=== PATIENT | male | born 1975 | race Caucasian/White ===

== ENCOUNTER 2018-03-14 13:41 | Emergency (ER) | payer MEDICARE, OTHER ==
--- NOTE | 2018-03-14 14:24 | ED ---
Psych HPI - General Chief Complaint: Psychiatric Symptoms Stated Complaint: Mental Health Time Seen by Provider: 03/14/18 14:11 Source: patient Mode of arrival: ambulatory - History of Present Illness Initial Comments: Patient is a 42-year-old male presenting for suicidal ideation. He states that he was at [facility] on and was set up with a counselor as well as the medicines. However, he then had an outburst on where he smashed a hamburger at [employer] and fiance's concerned because he has been having worsening suicidal ideations with many thoughts of hurting himself but no plan. Family states that they do want inpatient treatment. - Related Data Home Medications Medication Instructions Recorded Confirmed Venlafaxine HCl [Effexor] 1 tab PO DAILY 11/29/14 02/25/15 ALPRAZolam [Xanax] 1 mg PO BID 02/25/15 02/25/15 Allergies Allergy/AdvReac Type Severity Reaction Status Date / Time iodine Allergy Unknown Rash/Hives Verified 03/14/18 13:50 Review of Systems ROS Statement: Those systems with pertinent positive or pertinent negative responses have been documented in the HPI. Constitutional: Negative for chills, fatigue and fever. HENT: Negative for congestion. Respiratory: Negative for chest tightness, shortness of breath and wheezing. Negative for cough Cardiovascular: Negative for chest pain and palpitations. Gastrointestinal: Negative for abdominal pain. Negative for abdominal distention , diarrhea, nausea and vomiting. Genitourinary: Negative for dysuria. Musculoskeletal: Negative for back pain, neck pain and neck stiffness. Skin: Negative for color change. Neurological: Negative for dizziness, speech difficulty, weakness and light- headedness. Psychiatric/Behavioral: Negative for agitation and confusion. Positive for anxiety and suicidal ideation ROS Other: All systems not noted in ROS Statement are negative. Past Medical History Past Medical History: No Reported History History of Any Multi-Drug Resistant Organisms: None Reported Past Surgical History: Orthopedic Surgery Additional Past Surgical History / Comment(s): Right knee osteotomy Past Anesthesia/Blood Transfusion Reactions: No Reported Reaction Past Psychological History: Bipolar Smoking Status: Current every day smoker Past Alcohol Use History: None Reported Past Drug Use History: Marijuana - Past Family History Father Family Medical History: Unable to Obtain Mother Family Medical History: Unable to Obtain Additional Family Medical History / Comment(s): Patient states he does not know anything about his mother or father's health. He does have 1 daughter. He also has 1 brother and 2 sisters that are healthy. General Exam - General Exam Comments Initial Comments: Constitutional: Pt is oriented to person, place, and time. Pt appears well- developed and well-nourished. No distress. HENT: Head: Normocephalic and atraumatic. Eyes: EOM are normal. Neck: Normal range of motion. Neck supple. Cardiovascular: Normal rate, regular rhythm, S1 normal, S2 normal and normal heart sounds. Exam reveals no gallop and no friction rub. No murmur heard. Pulmonary/Chest: Effort normal and breath sounds normal. No tachypnea and no bradypnea. No respiratory distress. No wheezes or rales noted. Abdominal: Soft. Bowel sounds are normal. Pt exhibits no shifting dullness, no distension, no pulsatile liver, no fluid wave, no abdominal bruit and no ascites. There is no tenderness. There is no rigidity, no rebound, no guarding, no tenderness at McBurney's point and negative Scott's sign. Musculoskeletal: Normal range of motion. Neurological: Pt is alert and oriented to person, place, and time. No cranial nerve deficit. Skin: Skin is warm and dry. No rash noted. Pt is not diaphoretic. No erythema. No pallor. Psychiatric: Patient is anxious with emotional lability. Positive for suicidal ideation.. Limitations: no limitations Course Vital Signs 03/14/18 03/14/18 13:47 17:01 Temperature 98.9 F 97.5 F L Pulse Rate 89 52 L Respiratory 16 20 Rate Blood Pressure 118/66 119/59 O2 Sat by Pulse 96 99 Oximetry - Reevaluation(s) Reevaluation #1: 03/14/18 16:54 Patient evaluated by social work lecturer Medical Decision Making - Medical Decision Making Patient was evaluated by his psychiatric nurse and at that time, the patient adamantly denied any suicidal ideation. His fianc/girlfriend left the room and he stated that he was only seen those things because she was coercing him to do so. Multiple discussions were had between physician and social work lecturer/ psychiatry, and it was felt that the patient was not truly suicidal and could be safely discharged under the care of a close family member. The patient's brother came to the emergency department and this was discussed with him. The brother stated that he does believe that the patient's fianc is causing some of these symptoms to be worsened. He also agreed that he would take the patient under his care and watch him for the next few days. Because of this, it was felt that the patient could be safely discharged. - Lab Data Lab Results 03/14/18 Range/Units 14:35 Urine Opiates Screen Not Detected (NotDetected) Ur Oxycodone Screen Not Detected (NotDetected) Urine Methadone Screen Not Detected (NotDetected) Ur Propoxyphene Screen Not Detected (NotDetected) Ur Barbiturates Screen Not Detected (NotDetected) U Tricyclic Antidepress Not Detected (NotDetected) Ur Phencyclidine Scrn Not Detected (NotDetected) Ur Amphetamines Screen Not Detected (NotDetected) U Methamphetamines Scrn Not Detected (NotDetected) U Benzodiazepines Scrn Not Detected (NotDetected) Urine Cocaine Screen Not Detected (NotDetected) U Marijuana (THC) Screen Detected H (NotDetected) Disposition Clinical Impression: Dysphoric mood Disposition: HOME SELF-CARE Condition: Good Instructions: Mood Disorders (ED) Is patient prescribed a controlled substance at d/c from ED?: No Referrals: None,Stated [Primary Care Provider] - 1-2 days Time of Disposition: 16:53
[2018-03-14 14:54] LABS: Urn Cannabinoid Scrn Detected (NotDetected)
[2018-03-14 14:55] LABS: Amphetamine Screen,Urine Not Detected (NotDetected); Barbiturate Screen,Urine Not Detected (NotDetected); Benzodiazepines Screen,Urine Not Detected (NotDetected); Cocaine Screen,Urine Not Detected (NotDetected); Methadone Screen, Urine Not Detected (NotDetected); Opiate Screen,Urine Not Detected (NotDetected); Oxycodone Screen, Urine Not Detected (NotDetected); Phencyclidine Screen,Urine Not Detected (NotDetected); Tricyclic Antidepressant,Urine Not Detected (NotDetected)
[2018-03-14 17:03] VITALS: BP 119/59; PULSE 52; RESP 20; TEMP 97.5
== END 2018-03-14 17:13 | disposition home or self-care (01) ==
LOC: EEVIPCON 13:41 → EC 13:41
DX: F34.1 Dysthymic disorder (principal); F31.9 Bipolar disorder, unspecified; F17.200 Nicotine dependence, unspecified, uncomplicated; Z98.890 Other specified postprocedural states; Z79.899 Other long term (current) drug therapy; Z91.048 Other nonmedicinal substance allergy status
CPT/HCPCS: 80306; 82075; 99285

== ENCOUNTER 2018-03-16 04:56 | Inpatient (IN) | payer MEDICARE, MEDICAID ==
--- NOTE | 2018-03-16 05:37 | ED ---
General Adult HPI - General Source: patient, family, RN notes reviewed, old records reviewed Mode of arrival: ambulatory Limitations: no limitations <Chema Mckeon - Last Filed: 03/16/18 05:36> <Tay Rinaldi - Last Filed: 03/16/18 19:26> - General Chief complaint: Psychiatric Symptoms Stated complaint: Mental Health Time Seen by Provider: 03/16/18 05:05 - History of Present Illness Initial comments: This is a 42-year-old male the ER for evaluation. Patient comes in for evaluation of mental health. Patient having difficulty following up with [facility]. Patient was essay with mom and her evaluation of suicidal thoughts and ideation (Chema Mckeon) - Related Data Home Medications Medication Instructions Recorded Confirmed No Known Home Medications 03/16/18 03/16/18 Allergies Allergy/AdvReac Type Severity Reaction Status Date / Time iodine Allergy Unknown Rash/Hives Verified 03/16/18 09:38 nicotine patch Allergy Rash/Hives Uncoded 03/16/18 10:01 Review of Systems ROS Other: All systems not noted in ROS Statement are negative. <Chema Mckeon - Last Filed: 03/16/18 05:36> ROS Other: All systems not noted in ROS Statement are negative. <Tay Rinaldi - Last Filed: 03/16/18 19:26> ROS Statement: Those systems with pertinent positive or pertinent negative responses have been documented in the HPI. Past Medical History Past Medical History: No Reported History History of Any Multi-Drug Resistant Organisms: None Reported Past Surgical History: Orthopedic Surgery Additional Past Surgical History / Comment(s): Right knee osteotomy Past Anesthesia/Blood Transfusion Reactions: No Reported Reaction Past Psychological History: Bipolar Smoking Status: Current every day smoker Past Alcohol Use History: None Reported Past Drug Use History: Marijuana - Past Family History Father Family Medical History: Unable to Obtain Mother Family Medical History: Unable to Obtain Additional Family Medical History / Comment(s): Patient states he does not know anything about his mother or father's health. He does have 1 daughter. He also has 1 brother and 2 sisters that are healthy. <Chema Mckeon - Last Filed: 03/16/18 05:36> General Exam Limitations: no limitations General appearance: alert, in no apparent distress Head exam: Present: atraumatic, normocephalic, normal inspection Eye exam: Present: normal appearance, PERRL, EOMI. Absent: scleral icterus, conjunctival injection, periorbital swelling ENT exam: Present: normal exam, mucous membranes moist Neck exam: Present: normal inspection. Absent: tenderness, meningismus, lymphadenopathy Respiratory exam: Present: normal lung sounds bilaterally. Absent: respiratory distress, wheezes, rales, rhonchi, stridor Cardiovascular Exam: Present: regular rate, normal rhythm, normal heart sounds. Absent: systolic murmur, diastolic murmur, rubs, gallop, clicks GI/Abdominal exam: Present: soft, normal bowel sounds. Absent: distended, tenderness, guarding, rebound, rigid Extremities exam: Present: normal inspection, full ROM, normal capillary refill. Absent: tenderness, pedal edema, joint swelling, calf tenderness Back exam: Present: normal inspection Neurological exam: Present: alert, oriented X3, CN II-XII intact Psychiatric exam: Present: normal affect, normal mood Skin exam: Present: warm, dry, intact, normal color. Absent: rash <Chema Mckeon - Last Filed: 03/16/18 05:36> Course <Chema Mckeon - Last Filed: 03/16/18 05:36> <Tay Rinaldi - Last Filed: 03/16/18 19:26> Vital Signs 03/16/18 03/16/18 05:13 12:28 Temperature 98.2 F Pulse Rate 74 67 Respiratory 18 18 Rate Blood Pressure 129/87 110/54 O2 Sat by Pulse 100 98 Oximetry - Reevaluation(s) Reevaluation #1: 03/16/18 05:36 Patient is medically clear for psychiatric evaluation (Chema Mckeon) Reevaluation #2: 03/16/18 05:37 Prior ER visit is reviewed (Chema Mckeon) Medical Decision Making <Chema Mckeon - Last Filed: 03/16/18 05:36> <Tay Rinaldi - Last Filed: 03/16/18 19:26> - Medical Decision Making 41-year-old male presenting for depression, suicidal ideation. He was evaluated by EPS and will be admitted for further treatment and evaluation. ( Tay Rinaldi) - Lab Data Lab Results 03/16/18 Range/Units 07:29 Urine Opiates Screen Not Detected (NotDetected) Ur Oxycodone Screen Not Detected (NotDetected) Urine Methadone Screen Not Detected (NotDetected) Ur Propoxyphene Screen Not Detected (NotDetected) Ur Barbiturates Screen Not Detected (NotDetected) U Tricyclic Antidepress Not Detected (NotDetected) Ur Phencyclidine Scrn Not Detected (NotDetected) Ur Amphetamines Screen Not Detected (NotDetected) U Methamphetamines Scrn Not Detected (NotDetected) U Benzodiazepines Scrn Not Detected (NotDetected) Urine Cocaine Screen Not Detected (NotDetected) U Marijuana (THC) Screen Detected H (NotDetected) Disposition <Chema Mckeon - Last Filed: 03/16/18 05:36> Is patient prescribed a controlled substance at d/c from ED?: No Decision to Admit Reason: Admit from EC Decision Date: 03/16/18 Decision Time: 19:26 <Tay Rinaldi - Last Filed: 03/16/18 19:26> Clinical Impression: Depression, Suicidal ideation Disposition: ADMITTED IP TO [facility] Condition: Stable
[2018-03-16 07:45] LABS: Amphetamine Screen,Urine Not Detected (NotDetected); Barbiturate Screen,Urine Not Detected (NotDetected); Benzodiazepines Screen,Urine Not Detected (NotDetected); Cocaine Screen,Urine Not Detected (NotDetected); Methadone Screen, Urine Not Detected (NotDetected); Opiate Screen,Urine Not Detected (NotDetected); Oxycodone Screen, Urine Not Detected (NotDetected); Phencyclidine Screen,Urine Not Detected (NotDetected); Tricyclic Antidepressant,Urine Not Detected (NotDetected); Urn Cannabinoid Scrn Detected (NotDetected)
[2018-03-16] MEDS ORDERED: NICOTINE 21MG/24HR PATCH TRANSDERM STA (09:38)
[2018-03-16] MEDS: NICOTINE POLACRILEX 2 MG GUM BUCCAL PRN ×3 (10:06→22:50)
[2018-03-16] MEDS ORDERED: ZIPRASIDONE 20 MG VIAL IM PRN (19:28)
[2018-03-16] MEDS ORDERED: ACETAMINOPHEN TAB 325 MG TAB PO PRN (19:28)
[2018-03-16] MEDS ORDERED: LORazepam 1 MG TAB PO PRN (19:28)
[2018-03-17] MEDS: NICOTINE POLACRILEX 2 MG GUM BUCCAL PRN ×5 (07:40→22:45)
[2018-03-17] MEDS: ESCITALOPRAM 10 MG TAB PO SCH (09:43)
--- NOTE | 2018-03-17 09:44 | P.HP ---
Psychiatric H&P - . History & Physical: Allergies Allergy/AdvReac Type Severity Reaction Status Date / Time iodine Allergy Unknown Rash/Hives Verified 03/16/18 09:38 nicotine patch Allergy Rash/Hives Uncoded 03/16/18 10:01 Vital Signs Temp 97.8 F 03/17/18 07:24 Pulse 74 03/17/18 07:24 Resp 18 03/17/18 07:24 BP 116/71 03/17/18 07:24 Pulse Ox 98 03/17/18 07:24 Intake & Output 03/16/18 03/17/18 03/17/18 18:59 06:59 18:59 Weight 58.5 kg Laboratory Last Values Urine Opiates Screen Not Detected (NotDetected) 03/16/18 07:29 Ur Oxycodone Screen Not Detected (NotDetected) 03/16/18 07:29 Urine Methadone Screen Not Detected (NotDetected) 03/16/18 07:29 Ur Propoxyphene Screen Not Detected (NotDetected) 03/16/18 07:29 Ur Barbiturates Screen Not Detected (NotDetected) 03/16/18 07:29 U Tricyclic Antidepress Not Detected (NotDetected) 03/16/18 07:29 Ur Phencyclidine Scrn Not Detected (NotDetected) 03/16/18 07:29 Ur Amphetamines Screen Not Detected (NotDetected) 03/16/18 07:29 U Methamphetamines Scrn Not Detected (NotDetected) 03/16/18 07:29 U Benzodiazepines Scrn Not Detected (NotDetected) 03/16/18 07:29 Urine Cocaine Screen Not Detected (NotDetected) 03/16/18 07:29 U Marijuana (THC) Screen Detected (NotDetected) H 03/16/18 07:29 03/17/18 09:33 IDENTIFYING DATA: This patient is a 42-year-old single male who was admitted to the mental health unit with worsening symptoms of depression and suicidal ideation. HPI: The patient presents reporting he is not himself. He states he continues to have sad thoughts and thoughts of ending his life. He reports not feeling right for several weeks. He has been spontaneously tearful over the past several weeks. He has had hopelessness thinking. Appetite is been decreased sleep has been fragmented. His ADLs have suffered and upon presentation he was noted to be malodorous with poor hygiene. He reports having other thoughts that he is going to lose his fiance and that she may be cheating on him. He is worried he will lose her. He describes a significant amount of anxiety on a regular basis. He reports having difficulty shutting his mind off especially in the evening as he is excessively worried. This does seem to impair his sleep concentration and energy level. He denies any history of hypomanic or manic episodes. He is endorsing no auditory or visual hallucinations or any specific delusions. He does have a history of using methamphetamine but has been sober from that for the last 3 years. He does use marijuana on a regular basis. He smokes 4 packs of cigarettes a day because of "my nerves". PAST PSYCHIATRIC HISTORY: The patient has had 3-4 total inpatient psychiatric admissions the last one on this mental health unit was in 2014, no history of suicide attempts, he has been treated in the past with Paxil Lexapro and Wellbutrin XL. He feels all of the medications worked to some extent but he stopped them as his friends and family members convinced him he doesn't need psychiatric medication. He reports purchase a painting in an intake appointment with [facility] and is scheduled for a therapy appointment on March 24. PMH: History of cerebral palsy with scoliosis ALLERGIES: Iodine, nicotine patch MEDICATIONS: None CHEMICAL DEPENDENCY HISTORY: Daily marijuana use, history of methamphetamine use which stopped in September 2014 FAMILY PSYCHIATRIC HISTORY: None reported, no suicides in the family FAMILY CHEMICAL DEPENDENCY HISTORY: Unknown SOCIAL HISTORY: The patient's is 42 years old he single he resides with his fiance and HER-2 children. His fiance has 2 sons age 9 and 8. The patient is unemployed he receives a disability income. He has a high school education he did participate in a special education curriculum throughout his schooling. No history of service. He has a total of 7 siblings but has no contact with them. He is originally from [place] and was raised by both parents. Legal history he does have a history of a felony conviction several years ago for breaking and entering. No abuse history reported. He reports having no firearms at home. 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 Eye contact is appropriate he is pleasant and cooperative throughout the session. Numerous times he was tearful and his affect appeared dysphoric. He reports a depressed mood with intermittent hopelessness thinking. He states he doesn't want suicidal thoughts but he can't get them out of his head. No homicidal ideation intent or plan. He is reporting no auditory or visual hallucinations or any specific delusions. He demonstrates no observed evidence of psychosis. Thought process for the most part is linear he demonstrates no tangential thinking loose associations or flight of ideas. He does not appear hypomanic or manic. He does appear somewhat stimulus bound and he does frequently moves while seated in the chair. He demonstrates no verbal or physical aggressiveness he demonstrates no abnormal involuntary movements. He is oriented to person place and date. He is able name the days of the week backwards. STRENGTHS/WEAKNESSES: Strengths: Housing, income, willingness to receive treatment voluntarily weaknesses previous noncompliance with continued medication treatment INTELLECTUAL FUNCTIONING: Below average IMPRESSIONS: [] 1. Major depressive disorder recurrent severe without psychosis, methamphetamine use disorder in remission, cannabis use disorder, rule out attention deficit disorder 2. Cerebral palsy, scoliosis PLAN: The patient has been admitted to the mental health unit he is here voluntarily. We reviewed his presenting symptoms and treatment options. We will reinitiate Lexapro 10 mg daily to address depressive and anxiety symptoms. He feels that he did find that medication beneficial in the past. We discussed potential benefits and side effects of Lexapro his questions were answered. We will also provide trazodone as needed for insomnia. He is instructed to attend groups. He will be seen by internal medicine for routine history and physical exam. We'll monitor him for safety and encourage full participation in the milieu. We will involve family in his treatment and discharge planning as he will allow.
[2018-03-17 10:52] LABS: Basophils % (A) 0 %; Eosinophils % (A) 1 %; HCT 45.9 % (39.0-53.0); HGB 15.6 gm/dL (13.0-17.5); Lymphocytes # (A) 1.5 k/uL (1.0-4.8); Lymphocytes % (A) 35 %; MCH 32.4 pg (25.0-35.0); MCV 95.4 fL (80.0-100.0); Mean Platelet Volume 7.1; Monocytes # (A) 0.2 k/uL (0-1.0); Monocytes % (A) 5 %; Neutrophils # (A) 2.5 k/uL (1.3-7.7); Neutrophils % (A) 57 %; Platelet Count 216 k/uL (150-450); RBC 4.81 m/uL (4.30-5.90); RDW 13.7 % (11.5-15.5); WBC 4.4 k/uL (3.8-10.6)
[2018-03-17 11:15] LABS: ALT 30 U/L (21-72); AST 19 U/L (17-59); Albumin 4.3 g/dL (3.5-5.0); Alkaline Phosphatase 58 U/L (38-126); Anion Gap 9 mmol/L; Blood Urea Nitrogen 14 mg/dL (9-20); Calcium 9.8 mg/dL (8.4-10.2); Carbon Dioxide 31 mmol/L (22-30); Chloride 101 mmol/L (98-107); Cholesterol 170 mg/dL (<200); Glucose 87 mg/dL (74-99); HDL Cholesterol 42 mg/dL (40-60); LDL Cholesterol,Calculated 107 mg/dL (0-99); Potassium 5.1 mmol/L (3.5-5.1); Sodium 141 mmol/L (137-145); Total Bilirubin 0.3 mg/dL (0.2-1.3); Total Protein 7.2 g/dL (6.3-8.2); Triglycerides 103 mg/dL (<150)
--- NOTE | 2018-03-17 14:11 | P.HPMEDMHU ---
History of Present Illness H&P Date: 03/17/18 Chief Complaint: Suicidal ideation The patient is a pleasant 42-year-old male who is admitted to the mental health unit for worsening symptoms of depression and suicidal ideation. Apparently the patient has not been feeling himself has had increasingly sad thoughts of ending his life. He reports that he has a constant sosa between what seems to be mild Command hallucinations urging him to hurt himself versus resisting these thoughts. He reports feeling increasingly hopeless, he reports poor sleep insomnia and appetite. The patient has a fianc and mother who appeared to be supportive. The patient reports to having increased anxiety. He reports a previous history of inpatient psychiatric admissions most recently in 2014. The patient has a history of methamphetamine and marijuana use The patient has no somatic complaints, he denies any chronic medical illnesses. He is a smoker with a significant pack history, but denies any cough chest pain or shortness of breath. Review of Systems All other 12 point review of systems negative except per HPI Past Medical History Past Medical History: No Reported History History of Any Multi-Drug Resistant Organisms: None Reported Past Surgical History: Orthopedic Surgery Additional Past Surgical History / Comment(s): Right knee osteotomy Past Anesthesia/Blood Transfusion Reactions: No Reported Reaction Past Psychological History: Bipolar Smoking Status: Current every day smoker Past Alcohol Use History: None Reported Past Drug Use History: Marijuana - Past Family History Father Family Medical History: Unable to Obtain Mother Family Medical History: Unable to Obtain Additional Family Medical History / Comment(s): Patient states he does not know anything about his mother or father's health. He does have 1 daughter. He also has 1 brother and 2 sisters that are healthy. Medications and Allergies Home Medications Medication Instructions Recorded Confirmed Type No Known Home Medications 03/16/18 03/16/18 History Allergies Allergy/AdvReac Type Severity Reaction Status Date / Time iodine Allergy Unknown Rash/Hives Verified 03/16/18 09:38 nicotine patch Allergy Rash/Hives Uncoded 03/16/18 10:01 Physical Exam Vitals: Vital Signs Temp Pulse Pulse Resp BP BP Pulse Ox 03/17/18 07:24 97.8 F 74 18 116/71 98 03/16/18 19:30 98.2 F 54 L 18 107/53 96 03/16/18 19:25 97.9 F 56 L 18 129/75 96 Intake and Output 03/16/18 03/17/18 03/17/18 22:59 06:59 14:59 Other: Weight 58.5 kg Constitutional: No acute distress, conversant, pleasant Eyes: Anicteric sclerae, moist conjunctiva, no lid-lag, PERRLA ENMT: NC/AT,Oropharynx clear, no erythema, exudates Neck:Supple, FROM, no masses, or JVD, No carotid bruits; No thyromegaly Lungs: Clear to auscultation, Clear to percussion, Normal respiratory effort, no accessory muscle use Cardiovascular: Heart regular in rate and rhythm, No murmurs, gallops, or rubs no peripheral edema Abdominal: Soft Nontender, nom distended, no guarding, no rebound or rigidity, Normoactive bowel sounds No hepatomegaly, No splenomegaly, No palpable mass No abdominal wall hernia noted Skin: Normal temperature, tone, texture, turgor, No induration No subcutaneous nodules, No rash, lesions, No ulcers Extremities:No digital cyanosis No clubbing, Pedal pulses intact and symmetrical Radial pulses intact and symmetrical Normal gait and station, No calf tenderness Psychiatric: Alert and oriented to person, place and time, Appropriate affect Intact judgement Neuro: Muscles Strength 5/5 in all 4 extremities, Sensation to light touch grossly present throughout, Cranial nerves II-XII grossly intact. No focal sensory deficits Cranial Nerve Examination - Cranial Nerves Cranial Nerve II- Optic: Intact Cranial Nerve III- Oculomotor: Intact Cranial Nerve IV- Trochlear: Intact Cranial Nerve V- Trigeminal: Intact Cranial Nerve - Abducens: Intact Cranial Nerve VII- Facial: Intact Cranial Nerve VIII- Auditory: Intact Cranial Nerve IX- Glossopharyngeal: Intact Cranial Nerve X- Vagus: Intact Cranial Nerve XI- Accessory: Intact Cranial Nerve XII- Hypoglossal: Intact Results CBC & Chem 7: 03/17/18 10:22 03/17/18 10:22 Labs: Abnormal Lab Results - Last 24 Hours (Table) 03/17/18 Range/Units 10:22 Carbon Dioxide 31 H (22-30) mmol/L LDL Cholesterol, Calc 107 H (0-99) mg/dL Assessment and Plan (1) Depression Current Visit: Yes Status: Acute Code(s): F32.9 - MAJOR DEPRESSIVE DISORDER , SINGLE EPISODE, UNSPECIFIED SNOMED Code(s): 14349149 (2) Suicidal ideation Current Visit: Yes Status: Acute Code(s): R45.851 - SUICIDAL IDEATIONS SNOMED Code(s): 6669777 (3) Methamphetamine use Current Visit: Yes Status: Acute Code(s): F15.10 - OTHER STIMULANT ABUSE, UNCOMPLICATED SNOMED Code(s): 059862603 (4) Tobacco use disorder Current Visit: Yes Status: Acute Code(s): F17.200 - NICOTINE DEPENDENCE, UNSPECIFIED, UNCOMPLICATED SNOMED Code(s): 476833282 (5) Marijuana use Current Visit: Yes Status: Acute Code(s): F12.90 - CANNABIS USE, UNSPECIFIED , UNCOMPLICATED SNOMED Code(s): 478644764 Plan: The patient is admitted to the mental health unit we'll defer to inpatient psychiatry regarding ongoing psychotropic therapy and CBT. The patient has no significant medical history and has no complaints today, hence we will plan to sign off on his care. If there are any further questions or concerns no free to contact the sound inpatient team. I appreciate the opportunity to be involved in ongoing care of this patient
[2018-03-17] MEDS: MAG HYDROX/AL HYDROX/SIMETH 30 ML CUP PO PRN ×2 (14:46→20:07)
[2018-03-17 16:36] LABS: Hemoglobin A1C 5.5 % (4.0-6.0)
[2018-03-17] MEDS: traZODone HCL 50 MG TAB PO PRN (20:07)
[2018-03-18 06:50] VITALS: RESP 16
[2018-03-18] MEDS: ESCITALOPRAM 10 MG TAB PO SCH (08:19)
[2018-03-18] MEDS: NICOTINE POLACRILEX 2 MG GUM BUCCAL PRN ×6 (08:20→20:48)
--- NOTE | 2018-03-18 09:24 | P.PN ---
Progress Note - Text Interval history: The patient is found in the hallway he follows me to an interview room. He states that his mood is improved from yesterday. He finds the groups helpful and he is keeping himself busy on the mental health unit by socializing with peers. He did have a phone conversation with his fiance and her children and that was supportive. We reviewed his psychotropic medication he has no questions regarding the Lexapro or trazodone. He states the trazodone would have been effective that somebody was yelling during the night which woke him up appetite is stable. Mental status exam: The patient is an alert male he stressors own clothing. He has graying hair he is casually dressed in a T-shirt and jeans. Eye contact is appropriate he's pleasant and cooperative. He reports his mood is better in this environment. He is reporting no acute suicidal or homicidal ideation as he feels safe here. He finds himself less tearful since he's been in the hospital. He is endorsing no auditory or visual hallucinations or any specific delusions. There is no observed evidence of psychosis. He does appear hyperactive which is most likely a chronic condition. He demonstrates no verbal or physical aggressiveness. Thought process can be circumstantial but he demonstrates no tangential thinking his associations or flight of ideas. Insight and judgment limited. Plan: The patient will continue on his current psychotropic medications. He feels safe in this environment. I expect that he will stabilize during the course of this week. He is encouraged to continue complying with groups and we will continue monitoring him for safety.
[2018-03-18 13:26] LABS: Appearance,Urine Clear (Clear); Bilirubin,Urine Negative (Negative); Blood,Urine Negative (Negative); Color,Urine Yellow; Glucose,Urine (UA) Negative (Negative); Ketones,Urine Negative (Negative); Leukocyte Esterase,Urine Negative (Negative); Nitrite,Urine Negative (Negative); Protein,Urine Negative (Negative); Urobilinogen,Urine <2.0 mg/dL (<2.0)
[2018-03-18] MEDS: traZODone HCL 50 MG TAB PO PRN (20:48)
[2018-03-18] MEDS: MAG HYDROX/AL HYDROX/SIMETH 30 ML CUP PO PRN (23:01)
[2018-03-19] MEDS: NICOTINE POLACRILEX 2 MG GUM BUCCAL PRN ×4 (08:25→19:12)
[2018-03-19] MEDS: ESCITALOPRAM 10 MG TAB PO SCH (08:25)
--- NOTE | 2018-03-19 10:04 | P.PN ---
Progress Note - Text Interval history: The patient is found in the hallway he follows me to an interview room. He describes his mood is much improved. He has been attending groups and socializing appropriately with peers. We discussed his Lexapro. He feels that it may be causing him some sweating in the evening but is willing to continue with the medication to see if that side effect abates. He does not recall if he experienced that when he took Lexapro in the past. He endorses benefit from the medication already area he has spoken with his fiance and is looking forward to be discharged home. Sleep and appetite have been stable. He is demonstrated no agitated behavior and staff described him as cooperative. Mental status exam: The patient is alert he is dressed in his own clothing. He is pleasant and cooperative throughout the interview. Speech is spontaneous fluent nonpressured. He described his mood as much improved he is reporting no hopelessness thinking no suicidal or homicidal ideation intent or plan. He describes no auditory or visual hallucinations area all thought there is no overt evidence of psychosis. There is no evidence of tangential thinking associations or flight of ideas. He can demonstrate some circumstantial thinking at times. He does have some ongoing attention deficit symptoms chronically. He demonstrates no abnormal involuntary movements. He demonstrates no verbal or physical aggressiveness. Affect is euthymic and he demonstrates appropriate smile. Plan: The patient will continue on the Lexapro we will monitor his complaint of sweating. We plan on discharging him tomorrow if he remains clinically stable. Social work has made arrangements for a support meeting. Vital signs reviewed they're within normal limits. We will continue to monitor for safety. Is encouraged to continue participating fully in the milieu.
[2018-03-19] MEDS: MAG HYDROX/AL HYDROX/SIMETH 30 ML CUP PO PRN (15:17)
[2018-03-19] MEDS: traZODone HCL 50 MG TAB PO PRN (20:11)
[2018-03-20] MEDS: MAG HYDROX/AL HYDROX/SIMETH 30 ML CUP PO PRN (02:21)
[2018-03-20 02:26] VITALS: BP 154/82; PULSE 71; TEMP 98.2
[2018-03-20] MEDS: NICOTINE POLACRILEX 2 MG GUM BUCCAL PRN ×2 (09:00→11:41)
[2018-03-20] MEDS: ESCITALOPRAM 10 MG TAB PO SCH (09:00)
--- NOTE | 2018-03-20 09:15 | P.DS ---
Providers Date of admission: 03/16/18 19:10 Expected date of discharge: 03/20/18 Attending physician: Ernesto Nelson Consults: 03/16/18 19:28 Consult Physician Routine Consulting Provider: Rich Physician Consult Reason/Comments: H&P for mental health admission Do you want consulting provider notified?: Yes Primary care physician: Stated None - Discharge Diagnosis(es) (1) Major depressive disorder, recurrent severe without psychotic features Current Visit: Yes Status: Acute Priority: High (2) Cannabis use disorder, mild, abuse Current Visit: Yes Status: Acute Priority: Medium (3) Methamphetamine use disorder, moderate, in sustained remission, in controlled environment, dependence Current Visit: Yes Status: Acute Priority: Low Hospital Course: Brief summary of admission note: This patient is a 42-year-old single male who was admitted to the mental health unit through the emergency room with worsening symptoms of depression and having suicidal ideation. The patient reported he did not feel like himself. He was having sad thoughts and thoughts of ending his life. He had been increasingly spontaneously tearful over the last several weeks appetite had been decreased and sleep was fragmented. ADLs were reported to be impaired upon presentation and he was noted to be malodorous. For full details please refer to my psychiatric evaluation dated . Summary of hospital course: The patient was admitted to the mental health unit voluntarily. We reviewed his presenting symptoms and treatment options. In terms of medication we restarted him on Lexapro 10 mg daily for depressive and anxiety symptoms. Trazodone was used as needed for insomnia. He did utilize nicotine gum during this stay. He was seen by internal medicine for routine history and physical exam. The patient was pleasant and cooperative throughout his stay. He fully engaged in the milieu and demonstrated no agitated behavior. He reported a progressive improvement of symptoms while here. Mental status exam: The patient is alert he is dressed in his own clothing hygiene grooming are adequate. Eye contact is good speech is fluent spontaneous nonpressured. Thought process is circumstantial at times he demonstrates no tangential thinking loose associations or flight of ideas. He is reporting no auditory or visual hallucinations or any specific delusions. There is no observed evidence of psychosis. He demonstrates no evidence of hypomania or shante. He demonstrates no verbal or physical aggressiveness he demonstrates no abnormal involuntary movements. Affect is appropriately expresses. In terms of psychomotor activity he is chronically hyperactive likely due to an ADHD scenario. He is fully oriented to person place and date. Impressions 1. Major depressive disorder recurrent severe without psychosis, cannabis use disorder, methamphetamine use disorder in remission, rule out ADHD 2. Cerebral palsy scoliosis Plan: The patient will be discharged mental health unit today. He plans to return home with his fianc. He will continue on Lexapro 10 mg daily, trazodone 50 mg at bedtime as needed, and Nicorette gum. He will follow up with [facility]. There is no imminent safety risk is appropriate for transition back to outpatient care. He is instructed to return to the hospital with any acute safety concerns. He will give consideration to discontinuing cannabis use. He does not wish to participate in inpatient chemical dependency treatment for that reason however. Patient Condition at Discharge: Stable Plan - Discharge Summary New Discharge Prescriptions: New Escitalopram [Lexapro] 10 mg PO DAILY #30 tab Nicotine Polacrilex [Nicorette] 2 mg BUCCAL Q2HR PRN #90 gum PRN Reason: Nicotine Cravings traZODone HCL [Desyrel] 50 mg PO HS PRN #30 tab PRN Reason: Insomnia Discharge Medication List Escitalopram [Lexapro] 10 mg PO DAILY #30 tab 03/20/18 [Rx] Nicotine Polacrilex [Nicorette] 2 mg BUCCAL Q2HR PRN #90 gum 03/20/18 [Rx] traZODone HCL [Desyrel] 50 mg PO HS PRN #30 tab 03/20/18 [Rx] Follow up Appointment(s)/Referral(s): [facility] [Outside] - 03/24/18 1:00 pm (03/24/18 at 1 w/Julieta 03/30/18 at 1 w/Dr Doe) None,Stated [Primary Care Provider] - 1-2 days
== END 2018-03-20 13:45 | disposition home or self-care (01) | DRG 885 ==
LOC: EC 04:56 → 3MHU 19:10
PROVIDERS: ADMIT Psychiatry & Neurology Psychiatry; ATTEND Psychiatry & Neurology Psychiatry
DX: F33.2 Major depressive disorder, recurrent severe without psychotic features (principal); R45.851 Suicidal ideations; F15.21 Other stimulant dependence, in remission; G80.9 Cerebral palsy, unspecified; M41.9 Scoliosis, unspecified; F17.210 Nicotine dependence, cigarettes, uncomplicated; F12.10 Cannabis abuse, uncomplicated; Z88.5 Allergy status to narcotic agent; Z88.8 Allergy status to other drugs, medicaments and biological substances
CPT/HCPCS: 80053; 80061; 80306; 81003; 82075; 83036; 84443; 85025; 99285

== ENCOUNTER 2018-08-16 13:48 | Emergency (ER) | payer MEDICARE, OTHER ==
[2018-08-16 13:56] VITALS: BP 122/72; PULSE 73; RESP 18; TEMP 98.1
--- NOTE | 2018-08-16 14:40 | XR ---
EXAMINATION TYPE: XR wrist complete RT DATE OF EXAM: 08/16/2018 COMPARISON: NONE HISTORY: Fall. Pain. TECHNIQUE: 4 views. FINDINGS: I see no fracture nor dislocation. Joint spaces are normal. There are no pathologic calcifications. Impression Negative right wrist exam.
--- NOTE | 2018-08-16 14:42 | XR ---
EXAMINATION TYPE: XR hand complete RT DATE OF EXAM: 08/16/2018 COMPARISON: NONE HISTORY: Pain TECHNIQUE: 3 views FINDINGS: I see no fracture nor dislocation. Joint spaces are normal. Metacarpals appear intact. IMPRESSION: Negative right hand exam.
--- NOTE | 2018-08-16 14:42 | ED ---
General Adult HPI - General Chief complaint: Extremity Injury, Upper Stated complaint: Wrist injury Source: patient, RN notes reviewed, old records reviewed Mode of arrival: ambulatory Limitations: no limitations - History of Present Illness Initial comments: 43-year-old male patient with no pertinent past medical history presents to ED after sustaining a FOOSH injury to his right wrist last night. Patient states that he was riding on a however before last night when he lost his balance and fell forward catching himself with his outstretched hands, felt immediate pain in his right wrist. Patient has full range of motion of right wrist, has pain proximal to the thumb. Patient denies head trauma, loss of consciousness, injury to any other extremity. Patient not on blood thinners. Patient denies familial coagulation disorders. Patient denies any other symptoms including headache, change in vision, chest pain, shortness of breath, abdominal pain, nausea vomiting diarrhea. Systemic: Pt denies fatigue, myalgia, fever/chills, rash. Pt denies weakness, night sweats, weight loss. Neuro: Pt denies headache, visual disturbances, syncope or pre-syncope. HEENT: Pt denies ocular discharge or irritation, otalgia, rhinorrhea, pharyngitis or notable lymphadenopathy. Cardiopulmonary: Pt denies chest pain, SOB, heart palpitations, dyspnea on exertion. Abdominal/GI: Pt denies abdominal pain, n/v/d. : Pt denies dysuria, burning w/ urination, frequency/urgency. Denies new onset urinary or bowel incontinence. MSK: Pt denies myalgia, loss of strength or function in extremities. Neuro: Pt denies new onset weakness, paresthesias. - Related Data Home Medications Medication Instructions Recorded Confirmed FLUoxetine HCL [PROzac] 60 mg PO DAILY 08/16/18 08/16/18 OLANZapine [ZyPREXA] 20 mg PO DAILY 08/16/18 08/16/18 Previous Rx's Medication Instructions Recorded Ibuprofen [Motrin] 600 mg PO Q6HR PRN #20 day 08/16/18 Allergies Allergy/AdvReac Type Severity Reaction Status Date / Time iodine Allergy Unknown Rash/Hives Verified 08/16/18 14:31 nicotine patch Allergy Rash/Hives Uncoded 08/16/18 13:56 Review of Systems ROS Statement: Those systems with pertinent positive or pertinent negative responses have been documented in the HPI. ROS Other: All systems not noted in ROS Statement are negative. Past Medical History Past Medical History: No Reported History History of Any Multi-Drug Resistant Organisms: None Reported Past Surgical History: Orthopedic Surgery Additional Past Surgical History / Comment(s): Right knee osteotomy Past Anesthesia/Blood Transfusion Reactions: No Reported Reaction Past Psychological History: Bipolar, Depression Smoking Status: Current every day smoker Past Alcohol Use History: None Reported Past Drug Use History: Marijuana - Past Family History Father Family Medical History: Unable to Obtain Mother Family Medical History: Unable to Obtain Additional Family Medical History / Comment(s): Patient states he does not know anything about his mother or father's health. He does have 1 daughter. He also has 1 brother and 2 sisters that are healthy. General Exam - General Exam Comments Initial Comments: Constitutional: NAD, AOX3, Pt has pleasant affect. HEENT: NC/AT, trachea midline, neck supple, no lymphadenopathy. Posterior pharynx non erythematous, without exudates. External ears appear normal, without discharge. Mucous membranes moist. Eyes PERRLA, EOM intact. There is no scleral icterus. No pallor noted. Cardiopulmonary: RRR, no murmurs, rubs or gallops, no JVD noted. Lungs CTAB in anterior and posterior carrion. No peripheral edema. Abdominal exam: Abdomen soft and non-distended. Abdomen non-tender to palpation in all 4 quadrants. Bowel sounds active in LLQ. No hepatosplenomegaly. No ecchymosis Neuro: CN II-XII grossly intact. No nuchal rigidity. MSK: Right wrist snuffbox tenderness present. Patient has full range of motion of wrists. Patient neurovascularly intact. Capillary refill less than 2 seconds. Radial pulse +2. No posterior calf tenderness bilaterally, homans sign negative bilaterally. Posterior tibialis and radial pulse +2 bilaterally. Sensation intact in upper and lower extremities. Full active ROM in upper and lower extremities, 5/5 stregnth. Patient neurovascularly intact after him spica splint placement. No cervical spine tenderness. Limitations: no limitations Course Vital Signs 08/16/18 13:51 Temperature 98.1 F Pulse Rate 73 Respiratory 18 Rate Blood Pressure 122/72 O2 Sat by Pulse 98 Oximetry Medical Decision Making - Medical Decision Making 43-year-old male patient presents to ED after sustaining a FOOSH injury to his right wrist. Patient is on her or last night, fell forward on his outstretched right wrist, had immediate pain. Patient denied head trauma, neck trauma, loss of consciousness. Physical exam displayed normal range of motion right wrist, full range of motion right hand, full sensation intact, neurovascularly intact, snuffbox tenderness. Plain films of right hand and wrist were negative for acute pathology or fracture. Patient placed in a thumbs because splint. Patient given referral for orthopedic consult who he will call tomorrow. Patient follow up with PCP in 1-2 days. Patient to return to ED if these has symptoms develop including worsening pain, numbness, paresthesias, any other new symptoms. Case discussed with Dr. Wesley. Disposition Clinical Impression: Wrist sprain Disposition: HOME SELF-CARE Condition: Good Instructions: Wrist Sprain (ED) Additional Instructions: Patient to adhere to previously discussed treatment plan and will take medication(s) as directed. Patient to follow up with PCP in 1-2 days. Patient to return to ED if symptoms do not improve. Prescriptions: Ibuprofen [Motrin] 600 mg PO Q6HR PRN #20 day PRN Reason: Pain Is patient prescribed a controlled substance at d/c from ED?: No Referrals: Wallace Nicole MD [Primary Care Provider] - 1-2 days Sonia Menendez NPC [Nurse Practitioner] - 1-2 days Time of Disposition: 15:00
== END 2018-08-16 15:38 | disposition home or self-care (01) ==
LOC: EC 13:48
DX: S63.501A Unspecified sprain of right wrist, initial encounter (principal); F31.9 Bipolar disorder, unspecified; F17.200 Nicotine dependence, unspecified, uncomplicated; Z88.8 Allergy status to other drugs, medicaments and biological substances; Z91.048 Other nonmedicinal substance allergy status; Z79.899 Other long term (current) drug therapy; W01.0XXA Fall on same level from slipping, tripping and stumbling without subsequent striking against object, initial encounter; Y93.I9 Activity, other involving external motion
CPT/HCPCS: 29125; 99284

== ENCOUNTER 2020-04-12 22:09 | Inpatient (IN) | payer MEDICARE, MEDICAID ==
[2020-04-12 22:42] LABS: Amorphous Sediment,Urine Rare /hpf; Appearance,Urine Cloudy (Clear); Bacteria,Urine Rare /hpf; Bilirubin,Urine Negative (Negative); Blood,Urine Negative (Negative); Color,Urine Light Yellow; Glucose,Urine (UA) Negative (Negative); Ketones,Urine Negative (Negative); Leukocyte Esterase,Urine Negative (Negative); Mucus,Urine Rare /hpf; Nitrite,Urine Negative (Negative); PH, Urine 6.5 (5.0-8.0); Protein,Urine Negative (Negative); Specific Gravity,Urine 1.011 (1.001-1.035); Squamous Epithelial Cell,Urine <1 /hpf (0-4); Urobilinogen,Urine <2.0 mg/dL (<2.0); WBC,Urine 3 /hpf (0-5)
[2020-04-12 22:51] LABS: Amphetamine Screen,Urine Not Detected (NotDetected); Barbiturate Screen,Urine Not Detected (NotDetected); Benzodiazepines Screen,Urine Detected (NotDetected); Cocaine Screen,Urine Not Detected (NotDetected); Methadone Screen, Urine Not Detected (NotDetected); Opiate Screen,Urine Not Detected (NotDetected); Oxycodone Screen, Urine Not Detected (NotDetected); Phencyclidine Screen,Urine Not Detected (NotDetected); Tricyclic Antidepressant,Urine Not Detected (NotDetected); Urn Cannabinoid Scrn Detected (NotDetected)
[2020-04-12] MEDS ORDERED: SODIUM CHLORIDE 0.9% 500 ML 500 ML IV STA (23:01)
[2020-04-12 23:25] LABS: Basophils % (A) 0 %; Eosinophils # (A) 0.2 k/uL (0-0.7); Eosinophils % (A) 2 %; HCT 42.2 % (39.0-53.0); HGB 13.6 gm/dL (13.0-17.5); Lymphocytes # (A) 1.8 k/uL (1.0-4.8); Lymphocytes % (A) 18 %; MCH 30.7 pg (25.0-35.0); MCHC 32.3 g/dL (31.0-37.0); MCV 95.3 fL (80.0-100.0); Mean Platelet Volume 7.7; Monocytes # (A) 0.4 k/uL (0-1.0); Monocytes % (A) 4 %; Neutrophils # (A) 7.8 k/uL (1.3-7.7); Neutrophils % (A) 76 %; Platelet Count 216 k/uL (150-450); RBC 4.43 m/uL (4.30-5.90); RDW 13.7 % (11.5-15.5); WBC 10.3 k/uL (3.8-10.6)
[2020-04-12 23:33] LABS: ALT 19 U/L (4-49); AST 28 U/L (17-59); Acetaminophen <10.0 ug/mL; African American GFR (CKD) >90 (>60 ml/min/1.73 sqM); Albumin 4.1 g/dL (3.5-5.0); Alcohol <10 mg/dL; Alkaline Phosphatase 70 U/L (38-126); Anion Gap 6 mmol/L; Blood Urea Nitrogen 13 mg/dL (9-20); Calcium 9.8 mg/dL (8.4-10.2); Carbon Dioxide 29 mmol/L (22-30); Chloride 105 mmol/L (98-107); Glucose 100 mg/dL (74-99); Non-African American GFR(CKD) >90 (>60 ml/min/1.73 sqM); Potassium 4.3 mmol/L (3.5-5.1); Salicylate <1.0 mg/dL; Sodium 140 mmol/L (137-145); Total Bilirubin 0.3 mg/dL (0.2-1.3); Total Protein 6.7 g/dL (6.3-8.2)
--- NOTE | 2020-04-13 02:31 | ED ---
General Adult HPI <Gee Dean - Last Filed: 04/13/20 06:26> - General Source: patient, EMS, RN notes reviewed, old records reviewed Mode of arrival: EMS Limitations: no limitations <Tani Vivas - Last Filed: 04/13/20 19:11> - General Chief complaint: Psychiatric Symptoms Stated complaint: mental health Time Seen by Provider: 04/12/20 22:22 - History of Present Illness Initial comments: 45-year-old male patient presents ED for reported attempted suicide attempt. Patient reports that he took 17 of his sleeping pills declined stating which they are. Denies feeling any pain anywhere confusion headache change in vision or any other acute complaints. Systemic: Pt denies fatigue, fever/chills, rash. Pt denies weakness, night sweats, weight loss. Neuro: Pt denies headache, visual disturbances, syncope or pre-syncope. HEENT: Pt denies ocular discharge or irritation, otalgia, rhinorrhea, pharyngitis or notable lymphadenopathy. Cardiopulmonary: Pt denies chest pain, SOB, heart palpitations, dyspnea on exertion. Abdominal/GI: Pt denies abdominal pain, n/v/d. : Pt denies dysuria, burning w/ urination, frequency/urgency. Denies new onset urinary or bowel incontinence. MSK: Pt denies myalgia, loss of strength or function in extremities. Neuro: Pt denies new onset weakness, paresthesias. (Tani Vivas) - Related Data Home Medications Medication Instructions Recorded Confirmed FLUoxetine HCL [PROzac] 80 mg PO DAILY 04/13/20 04/13/20 OLANZapine [ZyPREXA] 5 mg PO HS 04/13/20 04/13/20 Allergies Allergy/AdvReac Type Severity Reaction Status Date / Time iodine Allergy Unknown Rash/Hives Verified 04/13/20 07:18 nicotine [From Nicoderm CQ] Allergy Rash/Hives Verified 04/13/20 07:18 Review of Systems ROS Other: All systems not noted in ROS Statement are negative. <DianneGee - Last Filed: 04/13/20 06:26> ROS Other: All systems not noted in ROS Statement are negative. <Tani Vivas - Last Filed: 04/13/20 19:11> ROS Statement: Those systems with pertinent positive or pertinent negative responses have been documented in the HPI. Past Medical History Past Medical History: No Reported History History of Any Multi-Drug Resistant Organisms: None Reported Past Surgical History: Orthopedic Surgery Additional Past Surgical History / Comment(s): Right knee osteotomy Past Anesthesia/Blood Transfusion Reactions: No Reported Reaction Past Psychological History: Bipolar, Depression Smoking Status: Current every day smoker Past Alcohol Use History: None Reported Past Drug Use History: Marijuana - Past Family History Father Family Medical History: Unable to Obtain Mother Family Medical History: Unable to Obtain Additional Family Medical History / Comment(s): Patient states he does not know anything about his mother or father's health. He does have 1 daughter. He also has 1 brother and 2 sisters that are healthy. <Tani Vivas - Last Filed: 04/13/20 19:11> General Exam Limitations: no limitations <Tani Vivas - Last Filed: 04/13/20 19:11> - General Exam Comments Initial Comments: Constitutional: NAD, AOX3, Pt has pleasant affect. HEENT: NC/AT, trachea midline, neck supple, no lymphadenopathy. External ears appear normal, without discharge. Mucous membranes moist. Eyes PERRLA, EOM intact. There is no scleral icterus. No pallor noted. Cardiopulmonary: RRR, no murmurs, rubs or gallops, no JVD noted. Lungs CTAB in anterior and posterior carrion. No peripheral edema. Abdominal exam: Abdomen soft and non-distended. Abdomen non-tender to palpation in all 4 quadrants. Bowel sounds active in LLQ. No hepatosplenomegaly. No ecchymosis Neuro: CN II-XII intact. No nuchal rigidity. No raccon eyes, no sosa sign, no hemotympanum. No cervical spinal tenderness. MSK: . Full active ROM in upper and lower extremities, 5/5 stregnth. (Tani Vivas) Course Vital Signs 04/12/20 04/13/20 04/13/20 22:11 00:00 02:00 Temperature 98.0 F Pulse Rate 97 53 L 56 L Respiratory 19 18 18 Rate Blood Pressure 153/82 O2 Sat by Pulse 96 Oximetry 04/13/20 04/13/20 04:00 05:30 Temperature Pulse Rate 72 107 H Respiratory 18 18 Rate Blood Pressure 145/85 O2 Sat by Pulse 95 Oximetry Medical Decision Making - Lab Data Result diagrams: 04/12/20 23:14 04/12/20 23:14 <Gee Dean - Last Filed: 04/13/20 06:26> - Lab Data Result diagrams: 04/12/20 23:14 04/12/20 23:14 - EKG Data -: EKG Interpreted by Me (and Dr. Harding ) <Tani Vivas - Last Filed: 04/13/20 19:11> - Medical Decision Making I saw this patient in conjunction with the physician admin assistant. I performed independent history and physical exam. Agree with case management. (Gee Dean) 45-year-old male patient is to ED for evaluation of central suicide attempt. Patient 40 Lasix 17 of his sleeping pills. Patient vital signs are stable, afebrile. Physical exam didn't display acute pathology. Patient continued to deny that he new the pills were. Patient eventually admitted that they were Zyprexa. Of investigations are unremarkable. Poison control was consult that recommended observation. Further intervention. Patient is signed out to Dr. Harding pending psychiatric evaluaton. (Tani Vivas) - Lab Data Lab Results 04/12/20 04/12/20 04/12/20 Range/Units 22:25 23:14 23:14 WBC 10.3 (3.8-10.6) k/uL RBC 4.43 (4.30-5.90) m/uL Hgb 13.6 (13.0-17.5) gm/dL Hct 42.2 (39.0-53.0) % MCV 95.3 (80.0-100.0) fL MCH 30.7 (25.0-35.0) pg MCHC 32.3 (31.0-37.0) g/dL RDW 13.7 (11.5-15.5) % Plt Count 216 (150-450) k/uL Neutrophils % 76 % Lymphocytes % 18 % Monocytes % 4 % Eosinophils % 2 % Basophils % 0 % Neutrophils # 7.8 H (1.3-7.7) k/uL Lymphocytes # 1.8 (1.0-4.8) k/uL Monocytes # 0.4 (0-1.0) k/uL Eosinophils # 0.2 (0-0.7) k/uL Basophils # 0.0 (0-0.2) k/uL Sodium 140 (137-145) mmol/L Potassium 4.3 (3.5-5.1) mmol/L Chloride 105 (98-107) mmol/L Carbon Dioxide 29 (22-30) mmol/L Anion Gap 6 mmol/L BUN 13 (9-20) mg/dL Creatinine 0.91 (0.66-1.25) mg/dL Est GFR (CKD-EPI)AfAm >90 (>60 ml/min/1.73 sqM) Est GFR (CKD-EPI)NonAf >90 (>60 ml/min/1.73 sqM) Glucose 100 H (74-99) mg/dL Calcium 9.8 (8.4-10.2) mg/dL Total Bilirubin 0.3 (0.2-1.3) mg/dL AST 28 (17-59) U/L ALT 19 (4-49) U/L Alkaline Phosphatase 70 (38-126) U/L Total Protein 6.7 (6.3-8.2) g/dL Albumin 4.1 (3.5-5.0) g/dL Urine Color Light Yellow Urine Appearance Cloudy (Clear) Urine pH 6.5 (5.0-8.0) Ur Specific [place] 1.011 (1.001-1.035) Urine Protein Negative (Negative) Urine Glucose (UA) Negative (Negative) Urine Ketones Negative (Negative) Urine Blood Negative (Negative) Urine Nitrite Negative (Negative) Urine Bilirubin Negative (Negative) Urine Urobilinogen <2.0 (<2.0) mg/dL Ur Leukocyte Esterase Negative (Negative) Urine WBC 3 (0-5) /hpf Ur Squamous Epith Cells <1 (0-4) /hpf Amorphous Sediment Rare H (None) /hpf Urine Bacteria Rare H (None) /hpf Urine Mucus Rare H (None) /hpf Salicylates <1.0 mg/dL Urine Opiates Screen Not Detected (NotDetected) Ur Oxycodone Screen Not Detected (NotDetected) Urine Methadone Screen Not Detected (NotDetected) Ur Propoxyphene Screen Not Detected (NotDetected) Acetaminophen <10.0 ug/mL Ur Barbiturates Screen Not Detected (NotDetected) U Tricyclic Antidepress Not Detected (NotDetected) Ur Phencyclidine Scrn Not Detected (NotDetected) Ur Amphetamines Screen Not Detected (NotDetected) U Methamphetamines Scrn Not Detected (NotDetected) U Benzodiazepines Scrn Detected H (NotDetected) Urine Cocaine Screen Not Detected (NotDetected) U Marijuana (THC) Screen Detected H (NotDetected) Serum Alcohol <10 mg/dL - EKG Data EKG Comments: 1) ventricular rate 56, VA interval 112, QRS 98, QT/QTC 380/3066. Sinus bradycardia, otherwise normal EKG. 2) ventricular rate 60,. Full 116, QRS 100, QT/QTC 392/392. NSR normal EKG no concern for acute ischemia. (Tani Vivas) Disposition <Gee Dean - Last Filed: 04/13/20 06:26> Is patient prescribed a controlled substance at d/c from ED?: No <Tani Vivas - Last Filed: 04/13/20 19:11> Clinical Impression: Depression, Intentional overdose of drug in tablet form Disposition: TRANSFER TO PSYCH HOSP/UNIT Condition: Serious
[2020-04-13] MEDS ORDERED: LORazepam 2 MG/ML INJ IM PRN (06:55)
[2020-04-13] MEDS ORDERED: ACETAMINOPHEN TAB 325 MG TAB PO PRN (06:55)
[2020-04-13] MEDS ORDERED: ZIPRASIDONE 20 MG VIAL IM PRN (06:55)
[2020-04-13] MEDS ORDERED: MAGNESIUM HYDROXIDE 2,400 MG/10 ML CUP PO PRN (06:55)
[2020-04-13] MEDS ORDERED: MAG HYDROX/AL HYDROX/SIMETH 30 ML CUP PO PRN (06:55)
[2020-04-13] MEDS: NICOTINE 14MG/24HR PATCH TRANSDERM SCH ×2 (09:47→10:11)
--- NOTE | 2020-04-13 11:36 | P.HP ---
Psychiatric H&P - . H&P Date: 04/13/20 History & Physical: Allergies Allergy/AdvReac Type Severity Reaction Status Date / Time iodine Allergy Unknown Rash/Hives Verified 04/13/20 07:18 nicotine From Nicoderm CQ Allergy Rash/Hives Verified 04/13/20 07:18 Vital Signs Temp 97.3 F L 04/13/20 07:49 Pulse 107 H 04/13/20 05:30 Resp 14 04/13/20 07:49 BP 129/85 04/13/20 07:49 Pulse Ox 96 04/13/20 07:49 Intake & Output 04/12/20 04/13/20 04/13/20 18:59 06:59 18:59 Weight 58.967 kg Laboratory Last Values WBC 10.3 k/uL (3.8-10.6) 04/12/20 23:14 RBC 4.43 m/uL (4.30-5.90) 04/12/20 23:14 Hgb 13.6 gm/dL (13.0-17.5) 04/12/20 23:14 Hct 42.2 % (39.0-53.0) 04/12/20 23:14 MCV 95.3 fL (80.0-100.0) 04/12/20 23:14 MCH 30.7 pg (25.0-35.0) 04/12/20 23:14 MCHC 32.3 g/dL (31.0-37.0) 04/12/20 23:14 RDW 13.7 % (11.5-15.5) 04/12/20 23:14 Plt Count 216 k/uL (150-450) 04/12/20 23:14 Neutrophils % 76 % 04/12/20 23:14 Lymphocytes % 18 % 04/12/20 23:14 Monocytes % 4 % 04/12/20 23:14 Eosinophils % 2 % 04/12/20 23:14 Basophils % 0 % 04/12/20 23:14 Neutrophils # 7.8 k/uL (1.3-7.7) H 04/12/20 23:14 Lymphocytes # 1.8 k/uL (1.0-4.8) 04/12/20 23:14 Monocytes # 0.4 k/uL (0-1.0) 04/12/20 23:14 Eosinophils # 0.2 k/uL (0-0.7) 04/12/20 23:14 Basophils # 0.0 k/uL (0-0.2) 04/12/20 23:14 Sodium 140 mmol/L (137-145) 04/12/20 23:14 Potassium 4.3 mmol/L (3.5-5.1) 04/12/20 23:14 Chloride 105 mmol/L (98-107) 04/12/20 23:14 Carbon Dioxide 29 mmol/L (22-30) 04/12/20 23:14 Anion Gap 6 mmol/L 04/12/20 23:14 BUN 13 mg/dL (9-20) 04/12/20 23:14 Creatinine 0.91 mg/dL (0.66-1.25) 04/12/20 23:14 Est GFR (CKD-EPI)AfAm >90 (>60 ml/min/1.73 sqM) 04/12/20 23:14 Est GFR (CKD-EPI)NonAf >90 (>60 ml/min/1.73 sqM) 04/12/20 23:14 Glucose 100 mg/dL (74-99) H 04/12/20 23:14 Calcium 9.8 mg/dL (8.4-10.2) 04/12/20 23:14 Total Bilirubin 0.3 mg/dL (0.2-1.3) 04/12/20 23:14 AST 28 U/L (17-59) 04/12/20 23:14 ALT 19 U/L (4-49) 04/12/20 23:14 Alkaline Phosphatase 70 U/L (38-126) 04/12/20 23:14 Total Protein 6.7 g/dL (6.3-8.2) 04/12/20 23:14 Albumin 4.1 g/dL (3.5-5.0) 04/12/20 23:14 Urine Color Light Yellow 04/12/20:25 Urine Appearance Cloudy (Clear) 04/12/20 22:25 Urine pH 6.5 (5.0-8.0) 04/12/20 22:25 Ur Specific [place] 1.011 (1.001-1.035) 04/12/20 22:25 Urine Protein Negative (Negative) 08/05/20 22:25 Urine Glucose (UA) Negative (Negative) 04/12/20 22:25 Urine Ketones Negative (Negative) 04/12/20 22:25 Urine Blood Negative (Negative) 04/12/20 22:25 Urine Nitrite Negative (Negative) 04/12/20 22:25 Urine Bilirubin Negative (Negative) 04/12/20 22:25 Urine Urobilinogen <2.0 mg/dL (<2.0) 04/12/20 22:25 Ur Leukocyte Esterase Negative (Negative) 04/12/20 22:25 Urine WBC 3 /hpf (0-5) 04/12/20 22:25 Ur Squamous Epith Cells <1 /hpf (0-4) 04/12/20 22:25 Amorphous Sediment Rare /hpf (None) H 04/12/20 22:25 Urine Bacteria Rare /hpf (None) H 04/12/20 22:25 Urine Mucus Rare /hpf (None) H 04/12/20 22:25 Salicylates <1.0 mg/dL 04/12/20 23:14 Urine Opiates Screen Not Detected (NotDetected) 04/12/20 22:25 Ur Oxycodone Screen Not Detected (NotDetected) 04/12/20 22:25 Urine Methadone Screen Not Detected (NotDetected) 04/12/20 22:25 Ur Propoxyphene Screen Not Detected (NotDetected) 04/12/20 22:25 Acetaminophen <10.0 ug/mL 04/12/20 23:14 Ur Barbiturates Screen Not Detected (NotDetected) 04/12/20 22:25 U Tricyclic Antidepress Not Detected (NotDetected) 04/12/20 22:25 Ur Phencyclidine Scrn Not Detected (NotDetected) 04/12/20 22:25 Ur Amphetamines Screen Not Detected (NotDetected) 04/12/20 22:25 U Methamphetamines Scrn Not Detected (NotDetected) 04/12/20 22:25 U Benzodiazepines Scrn Detected (NotDetected) H 04/12/20 22:25 Urine Cocaine Screen Not Detected (NotDetected) 04/12/20 22:25 U Marijuana (THC) Screen Detected (NotDetected) H 04/12/20 22:25 Serum Alcohol <10 mg/dL 04/12/20 23:14 04/13/20 10:34 IDENTIFYING DATA: Patient is a 45-year-old male with a history of depression and polysubstance abuse, who is currently homeless and has 2 kids is single and collects Social Security disability. HPI: Patient presented to the hospital yesterday with a history of depression after a reported suicide attempt. Patient allegedly took 17 sleeping pills in a suicide attempt and it was later confirmed that the sleeping pills were Zyprexa. Patient has had 2 other psychiatric admissions in the past for depression. Patient's UDS is positive for benzodiazepines and marijuana. Patient was apparently lethargic in the ER and was difficult to assess by EPS nurse. Patient was seen today by senior copywriter in his room laying in his bed with the sheets covering his face and was difficult to awaken however after he was more awake patient was directable and agreeable to speak to senior copywriter in the office. Patient had garbled speech and was unintelligible for most of the conversation. He had poor eye contact and poor hygiene and grooming. He was concrete and gave minimal information as to why he is not hospital. He did admit to an overdose on his sleeping medications. Patient was irritable towards the end of the interview. He states that his mood is "okay" and denied any depression however was incongruent. He states his sleep is poor. He admitted to having an argument with his girlfriend. Patient denies any suicidal or homicidal ideations intent or plan. At this time patient denies any auditory or visual hallucinations. Patient denies any flight of ideas racing thoughts and increased in goal directed behavior. Patient admits to using cigarettes daily and marijuana daily and he has a History of methamphetamine abuse in the past. PAST PSYCHIATRIC HISTORY: Patient states that he has a history of depression and anxiety.. Patient was previously on Lexapro, trazodone, Prozac and Zyprexa. Patient has been hospitalized several different times and the last hospitalization was in March 2018 on the mental health unit. Patient denies any psychiatric outpatient follow-up. He states that he has had multiple suicide attempts in the past. PMH:denies ALLERGIES: as per EMR CHEMICAL DEPENDENCY HISTORY: as per HPI FAMILY PSYCHIATRIC/SUBSTANCE USE HISTORY: denies SOCIAL HISTORY: Patient was born and raised in [facility] and claims that he completed high school. He states that he used to work at [employer] in [place] however is currently on disability. He states that he has 2 kids and is single and collects Social Security. He did admit to having a legal history and was in retirement previously for assault and battery. MENTAL STATUS EXAM: General Appearance: Patient appears to be stated age is lethargic, uncooperative, irritable/agitated. Patient appears to have poor hygiene and grooming. Wearing hospital gown. Behavior: Patient is seated without any agitated behavior. Ball and agitated. Uncooperative Speech: Patient's speech is garbled and unintelligible. Mood/Affect: Patient reports their mood is "okay", affect is incongruent and constricted. Suicidality/Homicidality: Patient denies having any homicidal ideation intent or plan. Denies any suicidal ideations intent or plan Perceptions: Patient denies any visual hallucinations and denies any auditory hallucinations Though content/process: Poverty of content/speech, illogical at times. Poor historian. Memory and concentration: AOX3, grossly intact for the purposes of this session. Judgment and insight: poor/impulsive. STRENGTHS/WEAKNESSES: strength is that patient is resilient. Weakness is that patient has poor judgment and is impulsive INTELLECT: Below average IMPRESSIONS: Depressive disorder unspecified, rule out bipolar depression versus major depressive disorder Cannabis use disorder History of methamphetamine abuse Nicotine dependence PLAN: -Patient is admitted under involuntary status to MHU for stabilization of psychiatric symptoms and safety. Patient refused to sign for medications consent. A second certification was completed and along with petition will be filed for court. -Medications : Will start patient on Prozac 20 mg daily for mood/anxiety, will also start patient on Zyprexa 5 mg daily at bedtime for mood stabilization/insomnia. -Ativan and Geodon PRN for agitation/aggression -Patient was informed of the risks, benefits and side effects of the medication and patient verbally consented to taking the medications. Patient signed med consent form and was placed in chart. -Internal Medicine consult to perform medical evaluation and physical. -NRT -Nicorette gum -SW on board for discharge planning. Encourage patient to participate in groups to work on coping skills. 04/13/20 11:30
[2020-04-13] MEDS: FLUoxetine HCL 20 MG CAP PO SCH (13:10)
[2020-04-13] MEDS: OLANZapine 5 MG TAB PO SCH (20:33)
[2020-04-14 07:36] LABS: Basophils % (A) 0 %; Eosinophils # (A) 0.2 k/uL (0-0.7); Eosinophils % (A) 3 %; HGB 15.3 gm/dL (13.0-17.5); Lymphocytes # (A) 2.3 k/uL (1.0-4.8); Lymphocytes % (A) 39 %; MCH 31.6 pg (25.0-35.0); MCHC 32.5 g/dL (31.0-37.0); Mean Platelet Volume 7.4; Monocytes # (A) 0.3 k/uL (0-1.0); Monocytes % (A) 5 %; Neutrophils % (A) 51 %; Platelet Count 200 k/uL (150-450); RBC 4.85 m/uL (4.30-5.90); RDW 13.7 % (11.5-15.5); WBC 5.9 k/uL (3.8-10.6)
[2020-04-14 07:46] LABS: ALT 18 U/L (4-49); AST 22 U/L (17-59); African American GFR (CKD) >90 (>60 ml/min/1.73 sqM); Albumin 4.1 g/dL (3.5-5.0); Alkaline Phosphatase 76 U/L (38-126); Anion Gap 4 mmol/L; Bilirubin, Delta 0.1 mg/dL (0.0-0.2); Bilirubin,Unconjugated 0.4 mg/dL (0.0-1.1); Blood Urea Nitrogen 14 mg/dL (9-20); Calcium 9.4 mg/dL (8.4-10.2); Carbon Dioxide 26 mmol/L (22-30); Chloride 108 mmol/L (98-107); Cholesterol 242 mg/dL (<200); Glucose 100 mg/dL (74-99); HDL Cholesterol 41 mg/dL (40-60); LDL Cholesterol,Calculated 180 mg/dL (0-99); Non-African American GFR(CKD) >90 (>60 ml/min/1.73 sqM); Potassium 4.7 mmol/L (3.5-5.1); Sodium 138 mmol/L (137-145); Total Bilirubin 0.5 mg/dL (0.2-1.3); Total Protein 6.9 g/dL (6.3-8.2); Triglycerides 107 mg/dL (<150)
[2020-04-14] MEDS: FLUoxetine HCL 20 MG CAP PO SCH (08:33)
[2020-04-14] MEDS: NICOTINE POLACRILEX 2 MG GUM BUCCAL PRN ×3 (10:33→18:48)
--- NOTE | 2020-04-14 10:38 | P.PN ---
Progress Note - Text Progress Note Date: 04/14/20 Interval History: Patient was seen wandering the hallways and was directable and agreeable to sharon cervantes with group underwriter in the office. Patient does take his medications this morning. He claims that he feels" brighter spirits" today and continues to perseverate on his "old medications" however states that he does not know the name of them. He continues to be superficial with group underwriter. He has mildly improved hygiene and grooming today and was wearing street clothing. He states that he was "sweating a lot" last night however states that he was able to sleep after the last group. He states that he will plan to go to groups today. He claims that his mood has been mildly improving and denies any anxiety today. She admits to fair appetite. He continues to have poor insight and judgment. At this time patient denies any suicidal or homical ideations, intent or plan. Patient denies any auditory, visual hallucinations and denies any paranoia or delusions. Patient denies any side effects from the medications and has been compliant with meds. Mental Status Exam: General Appearance: Patient appears to be stated age is more alert today, attempts to be, less irritable with group underwriter. Patient appears to have mildly improving hygiene and grooming. Wearing hospital gown. Behavior: Patient is seated without any agitated behavior. less irritable and agitated. Speech: Patient's speech is clear today and fluent. Mood/Affect: Patient reports their mood is "better", affect is congruent and constricted. Suicidality/Homicidality: Patient denies having any homicidal ideation intent or plan. Denies any suicidal ideations intent or plan Perceptions: Patient denies any visual hallucinations and denies any auditory hallucinations Though content/process: Poverty of content/speech, concrete, more logical. He perseverates on his medications. Memory and concentration: AOX3, grossly intact for the purposes of this session. Judgment and insight: poor/impulsive, and mildly mildly. Assessment Depressive disorder unspecified, rule out bipolar depression versus major depressive disorder Cannabis use disorder History of methamphetamine abuse Nicotine dependence Plan: -Patient continues to meet criteria for inpatient psychiatric admission for symptom stabilization and safety. Patient has not signed for medication consent and was placed in patient's chart. Currently awaiting deferral date, full court hearing set for 04/26/2020 at 11 AM. -Medications: Continue with Prozac 20 mg daily for mood/anxiety, Zyprexa 5 mg nightly for mood stabilization/insomnia. -When necessary Ativan and Geodon for agitation/aggression. -NRT -Nicorette gum -SW on board for discharge planning. Encouraged the patient to participate in milieu. We'll work with patient on placement options versus jail today. Likely discharge early next week.
[2020-04-14 12:30] LABS: Hemoglobin A1C 5.8 % (4.0-6.0)
--- NOTE | 2020-04-14 18:03 | P.MDCNMH ---
History of Present Illness H&P Date: 04/14/20 Chief Complaint: Medical management 45-year-old male with no significant PMH presents the ED after suicidal attempt. He has been admitted to mental health unit for further management and observation. [facility] physicians has been consulted for medical management of this patient. Patient has no complaints. He denies any headache, lower extremity edema, nausea or vomiting, fever or chills, chest pain, shortness of breath, palpitations, changes in urination or bowel habits. No changes in appetite or weight. He denies any dizziness, numbness/weakness/tingling of the extremities. He reports smoking 1 pack of cigarettes daily since age of 16. He reports daily marijuana use. He denies any other illicit drug use. He denies any alcohol use. Review vital signs show mildly elevated blood pressure 140/74. CBC is unremarkable. CMP shows chloride of 108, glucose of 100. Lipid panel shows total cholesterol 242 and LDL 180. Urinalysis negative. UDS is positive for benzodiazepine and marijuana. Review of Systems Pertinent positives and negatives as discussed in HPI, a complete review of systems was performed and all other systems are negative. Past Medical History Past Medical History: No Reported History History of Any Multi-Drug Resistant Organisms: None Reported Past Surgical History: Orthopedic Surgery Additional Past Surgical History / Comment(s): Right knee osteotomy Past Anesthesia/Blood Transfusion Reactions: No Reported Reaction Past Psychological History: Bipolar, Depression Smoking Status: Current every day smoker Past Alcohol Use History: None Reported Past Drug Use History: Marijuana - Past Family History Father Family Medical History: Unable to Obtain Mother Family Medical History: Unable to Obtain Additional Family Medical History / Comment(s): Patient states he does not know anything about his mother or father's health. He does have 1 daughter. He also has 1 brother and 2 sisters that are healthy. Medications and Allergies Home Medications Medication Instructions Recorded Confirmed Type FLUoxetine HCL [PROzac] 80 mg PO DAILY 04/13/20 04/13/20 History OLANZapine [ZyPREXA] 5 mg PO HS 04/13/20 04/13/20 History Allergies Allergy/AdvReac Type Severity Reaction Status Date / Time iodine Allergy Unknown Rash/Hives Verified 04/13/20 07:18 nicotine [From Nicoderm CQ] Allergy Rash/Hives Verified 04/13/20 07:18 Physical Exam Vitals: Vital Signs Temp Pulse Resp BP Pulse Ox 08/07/20 14:04 98.5 F 04/14/20 06:46 98.4 F 91 16 140/74 97 General: [non toxic], [no distress], [appears at stated age] Derm: [warm], [dry] Head: [atraumatic], [normocephalic], [symmetric] Eyes: [EOMI], [no lid lag], [anicteric sclera] Mouth: [no lip lesion], [mucus membranes moist] Cardiovascular: [S1S2 reg], [no murmur], [positive posterior tibial pulse bilateral], Lungs: [CTA bilateral], [no rhonchi, no rales] , [no accessory muscle use] Abdominal: [soft], [ nontender to palpation], [no guarding], [no appreciable organomegaly] Ext: [no gross muscle atrophy], [no edema], [no contractures] Neuro: [ CN II-XI grossly intact], [no focal neuro deficits] Psych: [Alert], [oriented], [appropriate affect] Cranial Nerve Examination - Cranial Nerves Cranial Nerve II- Optic: Intact Cranial Nerve III- Oculomotor: Intact Cranial Nerve IV- Trochlear: Intact Cranial Nerve V- Trigeminal: Intact Cranial Nerve - Abducens: Intact Cranial Nerve VII- Facial: Intact Cranial Nerve VIII- Auditory: Intact Cranial Nerve IX- Glossopharyngeal: Intact Cranial Nerve X- Vagus: Intact Cranial Nerve XI- Accessory: Intact Cranial Nerve XII- Hypoglossal: Intact Results CBC & Chem 7: 04/14/20 06:49 04/14/20 06:49 Labs: Abnormal Lab Results - Last 24 Hours (Table) 04/14/20 Range/Units 06:49 Chloride 108 H (98-107) mmol/L Glucose 100 H (74-99) mg/dL Cholesterol 242 H (<200) mg/dL LDL Cholesterol, Calc 180 H (0-99) mg/dL Assessment and Plan Assessment: Apparent Zyprexa overdose Dyslipidemia Elevated BP Smoker Marijuana abuse Concerns for QT prolongation. Initial QTC within normal limits at 392. Cont inue telemetry monitoring. Repeat EKG. Lipid panel shows total cholesterol 242 and LDL 180. Given no other comorbidities, would recommend dietary modifications at this time. His blood pressure is 140/74. He is not on any antihypertensive medication. We'll continue to monitor his vitals at this time. His medications will be adjusted if necessary. Nicotine gum. Patient advised to quit. Ativan as needed for agitation. Thank you for his consult. Please call with any additional questions or concerns.
[2020-04-14] MEDS: OLANZapine 5 MG TAB PO SCH (20:19)
[2020-04-15] MEDS: FLUoxetine HCL 20 MG CAP PO SCH (07:31)
[2020-04-15] MEDS: NICOTINE POLACRILEX 2 MG GUM BUCCAL PRN ×3 (07:31→16:26)
[2020-04-15] MEDS ORDERED: FLUoxetine HCL 20 MG CAP PO SCH (09:00)
--- NOTE | 2020-04-15 09:02 | P.PN ---
Progress Note - Text Progress Note Date: 04/15/20 Interval History: Patient was seen wandering the hallways and was directable and agreeable to sp eak with chart writer in the office. Just finished taking his medications this morning. Patient appeared to be more cooperative with chart writer today. He did not offer any overnight complaints and states that he's been sleeping well. Patient was mildly irritable and claimed he had anxiety. Patient was agreeable to have his medication increased. He states that he has been going to some groups and is trying to remain positive. Patient continues to perseverate on his "old medication" and states that he will be following up with [facility] in [place]. He continues to have poor insight and judgment. At this time patient denies any suicidal or homical ideations, intent or plan. Patient denies any auditory, visual hallucinations and denies any paranoia or delusions. Patient denies any side effects from the medications and has been compliant with meds. Mental Status Exam: General Appearance: Patient appears to be stated age is more alert today, attempts to be, less irritable with chart writer. Patient appears to have mildly improving hygiene and grooming. Wearing hospital gown. Behavior: Patient is seated without any agitated behavior. less irritable and agitated. Speech: Patient's speech is clear today and fluent. Mood/Affect: Patient reports their mood is "ok", affect is congruent and constricted. Suicidality/Homicidality: Patient denies having any homicidal ideation intent or plan. Denies any suicidal ideations intent or plan Perceptions: Patient denies any visual hallucinations and denies any auditory hallucinations Though content/process: Poverty of content/speech, concrete, more logical. He perseverates on his medications. Memory and concentration: AOX3, grossly intact for the purposes of this session. Judgment and insight: mildly improving. Assessment Depressive disorder unspecified, rule out bipolar depression versus major depressive disorder Cannabis use disorder History of methamphetamine abuse Nicotine dependence Plan: -Patient continues to meet criteria for inpatient psychiatric admission for symptom stabilization and safety. Patient has not signed for medication consent and was placed in patient's chart. Patient deferred court on 04/14/2020. -Medications: Increase Prozac 40 mg daily for mood/anxiety, Zyprexa 5 mg nightly for mood stabilization/insomnia. -When necessary Ativan and Geodon for agitation/aggression. -NRT -Nicorette gum -SW on board for discharge planning. Encouraged the patient to participate in milieu. We'll work with patient on placement options versus custodial today. Likely discharge Friday.
[2020-04-15] MEDS ORDERED: FLUoxetine HCL 20 MG CAP PO ONE (09:15)
[2020-04-15] MEDS: LORazepam 1 MG TAB PO PRN (18:26)
[2020-04-15] MEDS: OLANZapine 5 MG TAB PO SCH (20:11)
[2020-04-16] MEDS: NICOTINE POLACRILEX 2 MG GUM BUCCAL PRN ×2 (06:33→14:45)
[2020-04-16] MEDS: FLUoxetine HCL 20 MG CAP PO SCH (07:31)
--- NOTE | 2020-04-16 08:46 | P.PN ---
Progress Note - Text Progress Note Date: 04/16/20 Interval History: Patient was seen wandering the hallways and was directable and agreeable to sp eak with senior technical writer in the office. Patient appeared to be more cooperative with senior technical writer today. He states that yesterday he was speaking to his girlfriend over the phone and got mad at her over the kids and states that he needed and Ativan to calm down. He did not offer any overnight complaints and states that he's been sleeping well. He states that he is feeling much better on the current dose of the medications. He states that he has been going to some groups. Patient's insight appears to be improving mildly and was speaking about possible discharge tomorrow. At this time patient denies any suicidal or homical ideations, intent or plan. Patient denies any auditory, visual hallucinations and denies any paranoia or delusions. Patient denies any side effects from the medications and has been compliant with meds. Mental Status Exam: General Appearance: Patient appears to be stated age is more alert today, attempts to be cooperative. Patient appears to have mildly improving hygiene and grooming. Behavior: Patient is seated without any agitated behavior. More cooperative today Speech: Patient's speech is clear today and fluent. Mood/Affect: Patient reports their mood is "ok", affect is congruent and constricted. Suicidality/Homicidality: Patient denies having any homicidal ideation intent or plan. Denies any suicidal ideations intent or plan Perceptions: Patient denies any visual hallucinations and denies any auditory hallucinations Though content/process: Poverty of content/speech, concrete, more logical. Memory and concentration: AOX3, grossly intact for the purposes of this session. Judgment and insight: mildly improving. Assessment Depressive disorder unspecified, rule out bipolar depression versus major depressive disorder Cannabis use disorder History of methamphetamine abuse Nicotine dependence Plan: -Patient continues to meet criteria for inpatient psychiatric admission for symptom stabilization and safety. Patient has not signed for medication consent and was placed in patient's chart. Patient deferred court on 04/14/2020. -Medications: Continue with Prozac 40 mg daily for mood/anxiety, Zyprexa 5 mg nightly for mood stabilization/insomnia. -When necessary Ativan and Geodon for agitation/aggression. -NRT -Nicorette gum -SW on board for discharge planning. Encouraged the patient to participate in milieu. We'll work with patient on placement options versus prison today. Likely discharge Friday.
[2020-04-16 13:56] VITALS: RESP 14
[2020-04-16] MEDS: LORazepam 1 MG TAB PO PRN (17:06)
[2020-04-16] MEDS: OLANZapine 5 MG TAB PO SCH (19:43)
[2020-04-17] MEDS: NICOTINE POLACRILEX 2 MG GUM BUCCAL PRN ×2 (06:28→10:16)
[2020-04-17 06:57] VITALS: BP 157/71; PULSE 80; TEMP 98.7
[2020-04-17] MEDS: FLUoxetine HCL 20 MG CAP PO SCH (07:31)
--- NOTE | 2020-04-17 09:20 | P.DS ---
Providers Date of admission: 04/13/20 06:48 Expected date of discharge: 04/17/20 Attending physician: Brian Rodrigez MD Consults: 04/13/20 06:55 Consult Physician Routine Consulting Provider: Rich Yao Consult Reason/Comments: Medical H and P Do you want consulting provider notified?: Yes, Notify in am Primary care physician: Stated None - Discharge Diagnosis(es) (1) Bipolar depression Current Visit: Yes Status: Acute Priority: High (2) Cannabis use disorder, mild, abuse Current Visit: Yes Status: Acute Priority: Medium (3) History of methamphetamine abuse Current Visit: Yes Status: Acute Priority: Low (4) Nicotine dependence Current Visit: Yes Status: Acute Priority: Low Hospital Course: Admission HPI: Patient is a 45-year-old male with a history of depression and polysubstance abuse, who is currently homeless and has 2 kids is single and collects Social Security disability. Patient presented to the hospital yesterday with a history of depression after a reported suicide attempt. Patient allegedly took 17 sleeping pills in a suicide attempt and it was later confirmed that the sleeping pills were Zyprexa. Patient has had 2 other psychiatric admissions in the past for depression. Patient's UDS is positive for benzodiazepines and marijuana. Patient was apparently lethargic in the ER and was difficult to assess by EPS nurse. Patient was seen today by financial underwriter in his room laying in his bed with the sheets covering his face and was difficult to awaken however after he was more awake patient was directable and agreeable to speak to financial underwriter in the office. Patient had garbled speech and was unintelligible for most of the conversation. He had poor eye contact and poor hygiene and grooming. He was concrete and gave minimal information as to why he is not hospital. He did admit to an overdose on his sleeping medications. Patient was irritable towards the end of the interview. He states that his mood is "okay" and denied any depression however was incongruent. He states his sleep is poor. He admitted to having an argument with his girlfriend. Patient denies any suicidal or homicidal ideations intent or plan. At this time patient denies any auditory or visual hallucinations. Patient denies any flight of ideas racing thoughts and increased in goal directed behavior. Patient admits to using cigarettes daily and marijuana daily and he has a History of methamphetamine abuse in the past. Hospital course: Upon admission to the unit patient was initially depressed and irritable. Patient presented on a certificate and petition and a second certificate was completed by financial underwriter and patient ended up signing deferral for treatment on 04/14/2020 and was directable and agreeable to continue with treatment on the unit. Patient got along well with other patients on the unit and followed unit protocol. Patient was compliant with the medications and denied any side effects throughout hospital course. Patient was started on Zyprexa 5 mg daily at bedtime for mood stabilization/insomnia, patient was also started on Prozac and titrated up to a dose of 40 mg daily for mood/anxiety. Patient spoke of his stressors and engaged in therapy both group and individual. Patient was also seen by medical team for history and physical exam. Throughout the course of the hospitalization patient gradually improved with regards to mood, irritability, anxiety, sleep and became future oriented with improved insight and judgment. On the day of discharge patient denied any suicidal or homicidal ideations intent or plan denied any auditory or visual hallucinations. Patient endorsed wanting to live for his health and family. The patient denied any access to guns or weapons. Patient denied any paranoia and did not endorse any delusions. Patient does have a significant history of substance abuse and was counseled on abstaining from all substances including alcohol and marijuana. Patient was offered however declined inpatient substance-abuse rehab and wanted to cut back use on his own. Patient was also counseled on the medications and need for regular compliance and was encouraged to follow-up with their outpatient appointment for mental health and also for primary care. Prior to discharge a family meeting will be arranged by social service assistant to answer any questions and ensure safety upon discharge. Mental status exam: General Appearance: Patient appears to be older than stated age is alert, directable, and cooperative. Patient is in no acute distress and has fair hygiene and grooming Behavior: Patient is calmly seated without any agitated behavior. Cooperative Speech: Patient's speech is fluent and nonpressured. Mood/Affect: Patient reports their mood is "much better", affect is congruent and euthymic. Suicidality/Homicidality: Patient denies having any suicidal or homicidal ideation intent or plan. Perceptions: Patient denies any auditory or visual hallucinations. Though content/process: There is no evidence of any delusional thought content and thought process is linear and goal-directed. Memory and concentration: AOX3, grossly intact for the purposes of this session. Can spell "WORLD" backwards correctly. Judgment and insight: Improved with guarded prognosis Impression: Bipolar disorder, currently depressed episode Cannabis use disorder History of Methamphetamine abuse Nicotine dependence Plan: -Continue with discharge today as patient has improved and stabilized psychiatrically and is not currently an imminent threat to himself and/or others. Patient will remain at chronically elevated risk for harm to self and/or others due to his impulsivity and polysubstance abuse. -Continue medications: Prozac 40 mg daily for mood/anxiety, Zyprexa 5 mg daily at bedtime for mood stabilization/insomnia. -Patient was counseled on the need for medication compliance and appropriate follow-up at mental health and also primary care for medical issues. Patient verbalized understanding and agreed. -Social work to arrange for and conduct family meeting to ensure safety upon discharge and answer any questions/concerns. Social work also to arrange for patients follow up appointments for psychiatric care along with follow up with primary care provider. -Patient counseled on abstaining from recreational drugs and marijuana and alcohol. Was informed/educated on the adverse effects on their physical and mental health. Patient verbally agreed and understood. Patient was offered substance abuse treatment however declined at this time and wanted to cut back use on his own. -Patient was instructed to return to the hospital or seek immediate medical care if their psychiatric or medical symptoms do worsen or reoccur. Allergies Allergy/AdvReac Type Severity Reaction Status Date / Time iodine Allergy Unknown Rash/Hives Verified 04/13/20 07:18 nicotine [From Nicoderm ] Allergy Rash/Hives Verified 04/13/20 07:18 Laboratory Results WBC 5.9 k/uL (3.8-10.6) 04/14/20 06:49 RBC 4.85 m/uL (4.30-5.90) 04/14/20 06:49 Hgb 15.3 gm/dL (13.0-17.5) 04/14/20 06:49 Hct 47.0 % (39.0-53.0) 04/14/20 06:49 MCV 97.0 fL (80.0-100.0) 04/14/20 06:49 MCH 31.6 pg (25.0-35.0) 04/14/20 06:49 MCHC 32.5 g/dL (31.0-37.0) 04/14/20 06:49 RDW 13.7 % (11.5-15.5) 04/14/20 06:49 Plt Count 200 k/uL (150-450) 04/14/20 06:49 Neutrophils % 51 % 04/14/20 06:49 Lymphocytes % 39 % 04/14/20 06:49 Monocytes % 5 % 04/14/20 06:49 Eosinophils % 3 % 04/14/20 06:49 Basophils % 0 % 04/14/20 06:49 Neutrophils # 3.0 k/uL (1.3-7.7) 04/14/20 06:49 Lymphocytes # 2.3 k/uL (1.0-4.8) 04/14/20 06:49 Monocytes # 0.3 k/uL (0-1.0) 04/14/20 06:49 Eosinophils # 0.2 k/uL (0-0.7) 04/14/20 06:49 Basophils # 0.0 k/uL (0-0.2) 04/14/20 06:49 Sodium 138 mmol/L (137-145) 04/14/20 06:49 Potassium 4.7 mmol/L (3.5-5.1) 04/14/20 06:49 Chloride 108 mmol/L (98-107) H 04/14/20 06:49 Carbon Dioxide 26 mmol/L (22-30) 04/14/20 06:49 Anion Gap 4 mmol/L 04/14/20 06:49 BUN 14 mg/dL (9-20) 04/14/20 06:49 Creatinine 0.81 mg/dL (0.66-1.25) 04/14/20 06:49 Est GFR (CKD-EPI)AfAm >90 (>60 ml/min/1.73 sqM) 04/14/20 06:49 Est GFR (CKD-EPI)NonAf >90 (>60 ml/min/1.73 sqM) 04/14/20 06:49 Glucose 100 mg/dL (74-99) H 04/14/20 06:[address] Glu mg/dL 120 04/14/20 06:49 Hemoglobin A1c 5.8 % (4.0-6.0) 04/14/20 06:49 Calcium 9.4 mg/dL (8.4-10.2) 04/14/20 06:49 Total Bilirubin 0.5 mg/dL (0.2-1.3) 04/14/20 06:49 Conjugated Bilirubin 0.0 mg/dL (0.0-0.3) 04/14/20 06:49 Unconjugated Bilirubin 0.4 mg/dL (0.0-1.1) 04/14/20 06:49 Delta Bilirubin 0.1 mg/dL (0.0-0.2) 04/14/20 06:49 AST 22 U/L (17-59) 04/14/20 06:49 ALT 18 U/L (4-49) 04/14/20 06:49 Alkaline Phosphatase 76 U/L (38-126) 04/14/20 06:49 Total Protein 6.9 g/dL (6.3-8.2) 04/14/20 06:49 Albumin 4.1 g/dL (3.5-5.0) 04/14/20 06:49 Triglycerides 107 mg/dL (<150) 04/14/20 06:49 Cholesterol 242 mg/dL (<200) H 04/14/20 06:49 LDL Cholesterol, Calc 180 mg/dL (0-99) H 04/14/20 06:49 HDL Cholesterol 41 mg/dL (40-60) 04/14/20 06:49 TSH 1.270 mIU/L (0.465-4.680) 04/14/20 06:49 Urine Color Light Yellow 04/12/20 22:25 Urine Appearance Cloudy (Clear) 04/12/20 22:25 Urine pH 6.5 (5.0-8.0) 04/12/20 22:25 Ur Specific [place] 1.011 (1.001-1.035) 04/12/20 22:25 Urine Protein Negative (Negative) 04/12/20 22:25 Urine Glucose (UA) Negative (Negative) 04/12/20 22:25 Urine Ketones Negative (Negative) 04/12/20 22:25 Urine Blood Negative (Negative) 04/12/20 22:25 Urine Nitrite Negative (Negative) 04/12/20 22:25 Urine Bilirubin Negative (Negative) 08/05/20 22:25 Urine Urobilinogen <2.0 mg/dL (<2.0) 04/12/20 22:25 Ur Leukocyte Esterase Negative (Negative) 04/12/20 22:25 Urine WBC 3 /hpf (0-5) 04/12/20 22:25 Ur Squamous Epith Cells <1 /hpf (0-4) 04/12/20 22:25 Amorphous Sediment Rare /hpf (None) H 04/12/20 22:25 Urine Bacteria Rare /hpf (None) H 04/12/20 22:25 Urine Mucus Rare /hpf (None) H 04/12/20 22:25 Salicylates <1.0 mg/dL 04/12/20 23:14 Urine Opiates Screen Not Detected (NotDetected) 04/12/20 22:25 Ur Oxycodone Screen Not Detected (NotDetected) 04/12/20 22:25 Urine Methadone Screen Not Detected (NotDetected) 04/12/20 22:25 Ur Propoxyphene Screen Not Detected (NotDetected) 04/12/20 22:25 Acetaminophen <10.0 ug/mL 04/12/20 23:14 Ur Barbiturates Screen Not Detected (NotDetected) 04/12/20 22:25 U Tricyclic Antidepress Not Detected (NotDetected) 04/12/20 22:25 Ur Phencyclidine Scrn Not Detected (NotDetected) 04/12/20 22:25 Ur Amphetamines Screen Not Detected (NotDetected) 04/12/20 22:25 U Methamphetamines Scrn Not Detected (NotDetected) 04/12/20 22:25 U Benzodiazepines Scrn Detected (NotDetected) H 04/12/20 22:25 Urine Cocaine Screen Not Detected (NotDetected) 04/12/20 22:25 U Marijuana (THC) Screen Detected (NotDetected) H 04/12/20 22:25 Serum Alcohol <10 mg/dL 04/12/20 23:14 Vital Signs Temp 98.7 F 04/17/20 06:56 Pulse 80 04/17/20 06:56 Resp 14 04/16/20 13:49 BP 157/71 04/17/20 06:56 Pulse Ox 96 04/17/20 06:56 Intake & Output 04/16/20 04/17/20 04/17/20 18:59 06:59 18:59 Weight 61.4 kg Patient Condition at Discharge: Stable Plan - Discharge Summary New Discharge Prescriptions: New FLUoxetine HCL 40 mg PO DAILY 30 Days capsule Nicotine Polacrilex [Nicorette] 2 mg BUCCAL Q4HR PRN 14 Days gum PRN Reason: Nicotine Cravings Acetaminophen Tab [Tylenol] 650 mg PO Q4HR PRN tab PRN Reason: Pain/Discomfort OLANZapine [ZyPREXA] 5 mg PO HS 30 Days tab Discontinued OLANZapine [ZyPREXA] 5 mg PO HS FLUoxetine HCL [PROzac] 80 mg PO DAILY Discharge Medication List Acetaminophen Tab [Tylenol] 650 mg PO Q4HR PRN tab 04/17/20 [Rx] FLUoxetine HCL 40 mg PO DAILY 30 Days capsule 04/17/20 [Rx] Nicotine Polacrilex [Nicorette] 2 mg BUCCAL Q4HR PRN 14 Days gum 04/17/20 [Rx] OLANZapine [ZyPREXA] 5 mg PO HS 30 Days tab 04/17/20 [Rx] Follow up Appointment(s)/Referral(s): [facility] [NON-STAFF] - 1 Week Patient Instructions/Handouts: Suicide Prevention (DC) Activity/Diet/Wound Care/Special Instructions: Activity and diet as tolerated. Avoid the use of street drugs and alcohol. Take all medications as prescribed. When you are in need of refills on your medications please contact your medical provider and/or outpatient psychiatrist to have this done. Please go to scheduled outpatient appointment for aftercare treatment. If symptoms return or become worse, call the crisis line at and/or go to the nearest emergency room for evaluation. Discharge Disposition: HOME SELF-CARE
== END 2020-04-17 11:25 | disposition home or self-care (01) | DRG 918 ==
LOC: EC 22:09 → EEVIPCON 22:09 → 3MHU 04-13 06:48
PROVIDERS: ADMIT Psychiatry & Neurology Psychiatry; ATTEND Psychiatry & Neurology Psychiatry
DX: T43.592A Poisoning by other antipsychotics and neuroleptics, intentional self-harm, initial encounter (principal); F31.30 Bipolar disorder, current episode depressed, mild or moderate severity, unspecified; F15.10 Other stimulant abuse, uncomplicated; F17.210 Nicotine dependence, cigarettes, uncomplicated; F12.10 Cannabis abuse, uncomplicated; G47.00 Insomnia, unspecified; F41.9 Anxiety disorder, unspecified; E78.5 Hyperlipidemia, unspecified; R03.0 Elevated blood-pressure reading, without diagnosis of hypertension; R45.87 Impulsiveness; Z91.5 Personal history of self-harm; Z79.899 Other long term (current) drug therapy; Z91.048 Other nonmedicinal substance allergy status; Z59.0 Homelessness; Z88.8 Allergy status to other drugs, medicaments and biological substances
CPT/HCPCS: 36415; 80053; 80061; 80306; 80320; 80329; 81001; 82075; 82248; 83036; 83520; 84443; 85025; 93005; 96360; 99285

== ENCOUNTER 2021-04-12 16:48 | Inpatient (IN) | payer MEDICARE, MEDICAID ==
--- NOTE | 2021-04-12 17:38 | ED ---
Anxiety HPI - General Source: patient Mode of arrival: ambulatory <Manish Vaughan - Last Filed: 04/12/21 19:07> <Chema Booker - Last Filed: 04/12/21 21:06> - General Chief Complaint: Anxiety Stated Complaint: Withdrawal/Mental Health Time Seen by Provider: 04/12/21 17:00 - History of Present Illness Initial Comments: 46-year-old male with history of meth amphetamine abuse presents to emergency department with a chief complaint of anxiety and suicidal thoughts. Patient reports last time used meth was on Friday and is not able to take his psychiatric medications. States he spoke with his counselor and mention is thoughts of self-harm and suicide. However, he does not have a plan. He does not have any homicidal thoughts or ideations at this time. He has no further complaints. States his anxiety is worse than usual. (Manish Vaughan) - Related Data Home Medications: Home Medications Medication Instructions Recorded Confirmed FLUoxetine HCL [PROzac] 10 mg PO DAILY 04/12/21 04/12/21 Previous Rx's Medication Instructions Recorded OLANZapine [ZyPREXA] 5 mg PO HS 30 Days tab 04/17/20 Allergies/Adverse Reactions: Allergies Allergy/AdvReac Type Severity Reaction Status Date / Time iodine Allergy Unknown Rash/Hives Verified 04/12/21 18:10 nicotine [From Nicoderm CQ] Allergy Rash/Hives Verified 04/12/21 18:10 Review of Systems ROS Other: All systems not noted in ROS Statement are negative. <Manish Vaughan - Last Filed: 04/12/21 19:07> ROS Other: All systems not noted in ROS Statement are negative. <Chema Booker - Last Filed: 04/12/21 21:06> ROS Statement: Those systems with pertinent positive or pertinent negative responses have been documented in the HPI. Past Medical History Past Medical History: No Reported History History of Any Multi-Drug Resistant Organisms: None Reported Past Surgical History: Orthopedic Surgery Additional Past Surgical History / Comment(s): Right knee osteotomy Past Anesthesia/Blood Transfusion Reactions: No Reported Reaction Past Psychological History: Bipolar, Depression Smoking Status: Current every day smoker Past Alcohol Use History: None Reported Past Drug Use History: Marijuana, Methamphetamine - Past Family History Father Family Medical History: Unable to Obtain Mother Family Medical History: Unable to Obtain Additional Family Medical History / Comment(s): Patient states he does not know anything about his mother or father's health. He does have 1 daughter. He also has 1 brother and 2 sisters that are healthy. <Manish Vaughan - Last Filed: 04/12/21 19:07> General Exam Limitations: no limitations General appearance: alert, in no apparent distress Head exam: Present: atraumatic, normocephalic, normal inspection Eye exam: Present: normal appearance Pupils: Present: normal accommodation ENT exam: Present: normal exam, normal oropharynx, mucous membranes moist Neck exam: Present: normal inspection, full ROM Respiratory exam: Present: normal lung sounds bilaterally. Absent: respiratory distress Cardiovascular Exam: Present: regular rate, normal rhythm, normal heart sounds Extremities exam: Present: normal inspection, full ROM Back exam: Present: normal inspection, full ROM Neurological exam: Present: alert, oriented X3 Psychiatric exam: Present: normal affect, normal mood, suicidal ideation Skin exam: Present: warm, dry, intact, normal color <Manish Vaughan - Last Filed: 04/12/21 19:07> Course Vital Signs 04/12/21 16:54 Temperature 98.0 F Pulse Rate 106 H Respiratory 20 Rate Blood Pressure 138/79 O2 Sat by Pulse 97 Oximetry Medical Decision Making <Manish Vaughan - Last Filed: 04/12/21 19:07> <Chema Booker - Last Filed: 04/12/21 21:06> - Medical Decision Making 46-year-old male with history of meth amphetamine abuse presents to [facility] with a chief complaint of anxiety and suicidal thoughts. On physical examination, patient is slightly anxious. Urine drug screen pending. EPS evaluation pending At this time, patient care signed off to Dr. Booker. (Manish Vaughan) EPS evaluated the patient and they spoke with the psychiatrist and determined the patient needed to be admitted patient signed in voluntarily. (Cheam Booker) - Lab Data Lab Results 04/12/21 Range/Units 19:22 Urine Opiates Screen Not Detected (NotDetected) Ur Oxycodone Screen Not Detected (NotDetected) Urine Methadone Screen Not Detected (NotDetected) Ur Propoxyphene Screen Not Detected (NotDetected) Ur Barbiturates Screen Not Detected (NotDetected) U Tricyclic Antidepress Not Detected (NotDetected) Ur Phencyclidine Scrn Not Detected (NotDetected) Ur Amphetamines Screen Not Detected (NotDetected) U Methamphetamines Scrn Not Detected (NotDetected) U Benzodiazepines Scrn Not Detected (NotDetected) Urine Cocaine Screen Not Detected (NotDetected) U Marijuana (THC) Screen Detected H (NotDetected) Disposition <Manish Vaughan - Last Filed: 04/12/21 19:07> Time of Disposition: 21:06 <Chema Booker - Last Filed: 04/12/21 21:06> Clinical Impression: Depression, Suicidal ideation Disposition: ADMITTED IP TO THIS HOSP Referrals: None,Stated [Primary Care Provider] - 1-2 days
[2021-04-12 19:41] LABS: Amphetamine Screen,Urine Not Detected (NotDetected); Barbiturate Screen,Urine Not Detected (NotDetected); Benzodiazepines Screen,Urine Not Detected (NotDetected); Cocaine Screen,Urine Not Detected (NotDetected); Methadone Screen, Urine Not Detected (NotDetected); Opiate Screen,Urine Not Detected (NotDetected); Oxycodone Screen, Urine Not Detected (NotDetected); Phencyclidine Screen,Urine Not Detected (NotDetected); Tricyclic Antidepressant,Urine Not Detected (NotDetected); Urn Cannabinoid Scrn Detected (NotDetected)
[2021-04-12] MEDS ORDERED: ONDANSETRON 4 MG TAB PO STA (20:08)
[2021-04-12] MEDS ORDERED: LORazepam 1 MG TAB PO PRN (21:51)
[2021-04-12] MEDS ORDERED: MAGNESIUM HYDROXIDE 2,400 MG/10 ML CUP PO PRN (21:51)
[2021-04-12] MEDS ORDERED: LORazepam 2 MG/ML INJ IM PRN (21:59)
[2021-04-12] MEDS ORDERED: HALOPERIDOL LACTATE 5 MG/ML 1 ML VIAL IM PRN (22:01)
[2021-04-12] MEDS ORDERED: OLANZapine 5 MG TAB PO SCH (22:30)
[2021-04-13] MEDS ORDERED: NICOTINE POLACRILEX 2 MG GUM BUCCAL PRN
[2021-04-13] MEDS ORDERED: haloperidoL 5 MG TAB PO PRN
--- NOTE | 2021-04-13 05:28 | P.MDCNMH ---
History of Present Illness H&P Date: 04/13/21 Chief Complaint: Medically the 46-year-old male with history of cerebral palsy, anxiety Patient comes in due to suicidal ideation and anxiety, he admits to using meth recently which aggravates with his anxiety. He otherwise denies any physical complaints or medical concerns he denies any fevers, chills, nausea, vomiting, chest pain, trouble breathing, coughing, or any upper respiratory infection symptoms. he denies any abdominal pain, nausea, vomiting, changes in his bowel or urinary habits. Denies any GI bleeding or skin rashes, he denies any focal neuro deficits Review of Systems Pertinent positives as noted in HPI. All other systems were reviewed and are negative Past Medical History Past Medical History: No Reported History History of Any Multi-Drug Resistant Organisms: None Reported Past Surgical History: Orthopedic Surgery Additional Past Surgical History / Comment(s): Right knee osteotomy Past Anesthesia/Blood Transfusion Reactions: No Reported Reaction Smoking Status: Current every day smoker - Past Family History Father Family Medical History: Unable to Obtain Mother Family Medical History: Unable to Obtain Additional Family Medical History / Comment(s): Patient states he does not know anything about his mother or father's health. He does have 1 daughter. He also has 1 brother and 2 sisters that are healthy. Medications and Allergies Home Medications Medication Instructions Recorded Confirmed Type OLANZapine [ZyPREXA] 5 mg PO HS 30 Days tab 04/17/20 04/12/21 Rx FLUoxetine HCL [PROzac] 10 mg PO DAILY 04/12/21 04/12/21 History Allergies Allergy/AdvReac Type Severity Reaction Status Date / Time iodine Allergy Unknown Rash/Hives Verified 04/12/21 18:10 nicotine [From Nicoderm CQ] Allergy Rash/Hives Verified 04/12/21 18:10 Physical Exam Vitals: Vital Signs Temp Pulse Pulse Resp BP BP Pulse Ox 04/12/21 22:35 98.5 F 72 18 139/80 97 04/12/21 16:54 98.0 F 106 H 20 138/79 97 Intake and Output 04/12/21 04/12/21 04/13/21 14:59 22:59 06:59 Other: Weight 62.777 kg Constitutional: No acute distress, conversant, pleasant Eyes: Anicteric sclerae, moist conjunctiva, Pupils equal round reactive to light ENMT: NC/AT Oropharynx clear, no erythema, or exudates Neck: Supple, FROM, no masses, or JVD No carotid bruits No thyromegaly Lungs: Clear to auscultation Clear to percussion Normal respiratory effort, no accessory muscle use Cardiovascular: Heart regular in rate and rhythm, No murmurs, gallops, or rubs No peripheral edema Abdominal: Soft Nontender, no guarding, rebound or rigidity Abdomen moving with respiration Normoactive bowel sounds No hepatomegaly, No splenomegaly No palpable mass No abdominal wall hernia noted Skin: Normal temperature, tone, texture, turgor No induration No subcutaneous nodules No rash, lesions No ulcers Extremities: No digital cyanosis No clubbing Pedal pulses intact and symmetrical Radial pulses intact and symmetrical No calf tenderness Psychiatric: Alert and oriented to person, place and time Appropriate affect Neuro Muscles Strength 5/5 in all 4 extremities Sensation to light touch grossly present throughout Cranial nerves II-XII grossly intact No focal sensory deficits Lymphatics: no palpable cervical or supraclavicular , or inguinal lymph nodes Cranial Nerve Examination - Cranial Nerves Cranial Nerve II- Optic: Intact Cranial Nerve III- Oculomotor: Intact Cranial Nerve IV- Trochlear: Intact Cranial Nerve V- Trigeminal: Intact Cranial Nerve - Abducens: Intact Cranial Nerve VII- Facial: Intact Cranial Nerve VIII- Auditory: Intact Cranial Nerve IX- Glossopharyngeal: Intact Cranial Nerve X- Vagus: Intact Cranial Nerve XI- Accessory: Intact Cranial Nerve XII- Hypoglossal: Intact Results Labs: Abnormal Lab Results - Last 24 Hours (Table) 04/12/21 Range/Units 19:22 U Marijuana (THC) Screen Detected H (NotDetected) Assessment and Plan Assessment: Suicidal ideation Anxiety Management per psych Patient noncompliant with his medications Follow-up labs Polysubstance abuse Thank you for allowing us to participate in the care of this patient. We will follow peripherally. Do not hesitate to contact us with questions. Someone can be reached from the [facility] hospitalist group at all hours of the day at [phone].
[2021-04-13 07:18] LABS: Basophils # (A) 0.1 k/uL (0-0.2); Basophils % (A) 1 %; Eosinophils # (A) 0.2 k/uL (0-0.7); Eosinophils % (A) 3 %; HCT 42.6 % (39.0-53.0); HGB 14.3 gm/dL (13.0-17.5); Lymphocytes # (A) 1.9 k/uL (1.0-4.8); Lymphocytes % (A) 35 %; MCH 32.5 pg (25.0-35.0); MCHC 33.5 g/dL (31.0-37.0); MCV 96.9 fL (80.0-100.0); Mean Platelet Volume 7.2; Monocytes # (A) 0.3 k/uL (0-1.0); Monocytes % (A) 6 %; Neutrophils # (A) 2.9 k/uL (1.3-7.7); Neutrophils % (A) 53 %; Platelet Count 279 k/uL (150-450); RBC 4.39 m/uL (4.30-5.90); WBC 5.5 k/uL (3.8-10.6)
[2021-04-13 07:30] LABS: ALT 109 U/L (4-49); AST 41 U/L (17-59); African American GFR (CKD) >90 (>60 ml/min/1.73 sqM); Albumin 3.8 g/dL (3.5-5.0); Alkaline Phosphatase 84 U/L (38-126); Anion Gap 6 mmol/L; Blood Urea Nitrogen 9 mg/dL (9-20); Calcium 9.8 mg/dL (8.4-10.2); Carbon Dioxide 30 mmol/L (22-30); Chloride 103 mmol/L (98-107); Glucose 103 mg/dL (74-99); Non-African American GFR(CKD) >90 (>60 ml/min/1.73 sqM); Potassium 4.9 mmol/L (3.5-5.1); Sodium 139 mmol/L (137-145); Total Bilirubin 0.2 mg/dL (0.2-1.3); Total Protein 6.5 g/dL (6.3-8.2)
[2021-04-13] MEDS ORDERED: FLUoxetine HCL 20 MG CAP PO SCH (09:00)
[2021-04-13 12:00] LABS: Chol/HDL Ratio 3.55; Cholesterol 206 mg/dL (0-200); LDL Cholesterol,Calculated 121.6 mg/dL (0.0-131.0)
--- NOTE | 2021-04-13 12:16 | P.HP ---
Psychiatric H&P - . H&P Date: 04/13/21 History & Physical: Allergies Allergy/AdvReac Type Severity Reaction Status Date / Time iodine Allergy Unknown Rash/Hives Verified 04/12/21 18:10 nicotine [From [facility]] Allergy Rash/Hives Verified 04/12/21 18:10 Vital Signs Temp 98.5 F 04/12/21 22:35 Pulse 72 04/12/21 22:35 Resp 18 04/12/21 22:35 BP 139/80 04/12/21 22:35 Pulse Ox 97 04/12/21 22:35 Intake & Output 04/12/21 04/13/21 04/13/21 18:59 06:59 18:59 Weight 64.138 kg 62.777 kg Laboratory Last Values WBC 5.5 k/uL (3.8-10.6) 04/13/21 06:45 RBC 4.39 m/uL (4.30-5.90) 04/13/21 06:45 Hgb 14.3 gm/dL (13.0-17.5) 04/13/21 06:45 Hct 42.6 % (39.0-53.0) 04/13/21 06:45 MCV 96.9 fL (80.0-100.0) 04/13/21 06:45 MCH 32.5 pg (25.0-35.0) 04/13/21 06:45 MCHC 33.5 g/dL (31.0-37.0) 04/13/21 06:45 RDW 13.0 % (11.5-15.5) 04/13/21 06:45 Plt Count 279 k/uL (150-450) 04/13/21 06:45 MPV 7.2 04/13/21 06:45 Neutrophils % 53 % 04/13/21 06:45 Lymphocytes % 35 % 04/13/21 06:45 Monocytes % 6 % 04/13/21 06:45 Eosinophils % 3 % 04/13/21 06:45 Basophils % 1 % 04/13/21 06:45 Neutrophils # 2.9 k/uL (1.3-7.7) 04/13/21 06:45 Lymphocytes # 1.9 k/uL (1.0-4.8) 04/13/21 06:45 Monocytes # 0.3 k/uL (0-1.0) 04/13/21 06:45 Eosinophils # 0.2 k/uL (0-0.7) 04/13/21 06:45 Basophils # 0.1 k/uL (0-0.2) 04/13/21 06:45 Sodium 139 mmol/L (137-145) 04/13/21 06:45 Potassium 4.9 mmol/L (3.5-5.1) 04/13/21 06:45 Chloride 103 mmol/L (98-107) 04/13/21 06:45 Carbon Dioxide 30 mmol/L (22-30) 04/13/21 06:45 Anion Gap 6 mmol/L 04/13/21 06:45 BUN 9 mg/dL (9-20) 04/13/21 06:45 Creatinine 0.72 mg/dL (0.66-1.25) 04/13/21 06:45 Est GFR (CKD-EPI)AfAm >90 (>60 ml/min/1.73 sqM) 04/13/21 06:45 Est GFR (CKD-EPI)NonAf >90 (>60 ml/min/1.73 sqM) 04/13/21 06:45 Glucose 103 mg/dL (74-99) H 04/13/21 06:45 Calcium 9.8 mg/dL (8.4-10.2) 04/13/21 06:45 Total Bilirubin 0.2 mg/dL (0.2-1.3) 04/13/21 06:45 AST 41 U/L (17-59) 04/13/21 06:45 ALT 109 U/L (4-49) H 04/13/21 06:45 Alkaline Phosphatase 84 U/L (38-126) 04/13/21 06:45 Total Protein 6.5 g/dL (6.3-8.2) 04/13/21 06:45 Albumin 3.8 g/dL (3.5-5.0) 04/13/21 06:45 Triglycerides 132.0 mg/dL (0.0-149.0) 04/13/21 06:45 Cholesterol 206 mg/dL (0-200) H 04/13/21 06:45 LDL Cholesterol, Calc 121.6 mg/dL (0.0-131.0) 04/13/21 06:45 VLDL Cholesterol, Calc 26.40 mg/dL (5.00-40.00) 04/13/21 06:45 HDL Cholesterol 58.0 mg/dL (40.0-60.0) 04/13/21 06:45 Cholesterol/HDL Ratio 3.55 04/13/21 06:45 TSH 1.920 mIU/L (0.465-4.680) 04/13/21 06:45 Urine Opiates Screen Not Detected (NotDetected) 04/12/21 19:22 Ur Oxycodone Screen Not Detected (NotDetected) 04/12/21 19:22 Urine Methadone Screen Not Detected (NotDetected) 04/12/21 19:22 Ur Propoxyphene Screen Not Detected (NotDetected) 04/12/21 19:22 Ur Barbiturates Screen Not Detected (NotDetected) 04/12/21 19:22 U Tricyclic Antidepress Not Detected (NotDetected) 04/12/21 19:22 Ur Phencyclidine Scrn Not Detected (NotDetected) 04/12/21 19:22 Ur Amphetamines Screen Not Detected (NotDetected) 04/12/21 19:22 U Methamphetamines Scrn Not Detected (NotDetected) 04/12/21 19:22 U Benzodiazepines Scrn Not Detected (NotDetected) 04/12/21 19:22 Urine Cocaine Screen Not Detected (NotDetected) 04/12/21 19:22 U Marijuana (THC) Screen Detected (NotDetected) H 04/12/21 19:22 04/13/21 12:15 IDENTIFYING DATA: Patient is a single, unemployed, currently homeless, 46-year-old male with significant history of methamphetamine abuse who presents to the hospital with suicidal ideation HPI: Patient presented to the hospital on 04/13/21, brought into the emergency department by his mother for increased depression and suicidal thoughts. The patient states that he recently relapsed into heavy methamphetamine use after being sober from meth for approximately 15 years prior. He states that he began using methamphetamines 2 months ago. The relapsed into methamphetamines his cousin to feel increased depression and anxiety along with suicidal ideation but without any plan. The patient endorses significant symptoms of depression including low mood, crying episodes, and excessive guilt. The patient states that he feels particularly guilty because he missed a court appearance because of his methamphetamine use that he needed to show up for in order to maintain visitation rights for his 2-year-old daughter. As per [facility] note when the patient was last evaluated on 01/31/21, the patient does have a significant history of anger and depressive issues. He initially dropped out of treatment about a year ago and began having anger issues after his left him and took his infant daughter. Prior to that appointment, the patient was off his medications for about 1 year. He was reporting significant symptoms of depression, including feelings of worthlessness and hopelessness at that visit. The patient stresses strong desire to quit methamphetamines and wishes to go to rehabilitation after this psychiatric admission. His primary goal of this admission is to get back on his medications. PAST PSYCHIATRIC HISTORY: Patient is currently open with [facility] and has listed diagnoses of intellectual disability, major depressive disorder, amphetamine type substance use disorder, cannabis use disorder, generalized anxiety disorder, and tobacco use disorder. The patient only recalls ever being prescribed his Prozac and Zyprexa. The patient has had 3 prior inpatient psychiatric admissions on this unit starting in 2014 and his last admission being in April 2020. The patient does report a history of overdose but states that this was not a suicide attempt. PMH: Past Medical History: No Reported History History of Any Multi-Drug Resistant Organisms: None Reported Past Surgical History: Orthopedic Surgery Additional Past Surgical History / Comment(s): Right knee osteotomy Past Anesthesia/Blood Transfusion Reactions: No Reported Reaction Smoking Status: Current every day smoker ALLERGIES: iodine and nicotine patches. CHEMICAL DEPENDENCY HISTORY: Patient has significant history of methamphetamine abuse and he stated that his last use of methamphetamines was on Friday. He reports no significant alcohol use. He denies any prior inpatient rehabilitation admissions. The patient smokes 2 packs per day of tobacco. The patient also smokes marijuana heavily. FAMILY PSYCHIATRIC/SUBSTANCE USE HISTORY: Denies SOCIAL HISTORY: Patient was born and raised in [facility] [place], [place]. He is single, unemployed, receives Social Security, and never . He has a 2-year-old daughter and a 15-year-old son. Is currently not in contact with his children and is trying to be. The patient graduated high school. He denies any significant history of legal problems, history, or worship affil iation. MENTAL STATUS EXAM: General Appearance: Patient appears to be stated age is alert, directable, and attempts to cooperate. Patient appears to have fair hygiene and grooming. Patient has a thin build and multiple tattoos. Behavior: Patient is seated without any agitated behavior. Psychomotor activity slightly elevated. Speech: Patient's speech is spontaneous but slightly slurred. Sometimes difficult to comprehend. Mood/Affect: Patient reports their mood is depressed, affect is congruent and tearful. Suicidality/Homicidality: Patient denies having any homicidal ideation intent or plan. He is currently denying any suicidal ideation. Perceptions: Patient denies any visual hallucinations and denies any auditory hallucinations Though content/process: There is no evidence of any delusional thought content and thought process is linear and goal-directed. Memory and concentration: AOX3, grossly intact for the purposes of this session. Can spell "WORLD" backwards Judgment and insight: Fair STRENGTHS/WEAKNESSES: strength is that patient is future oriented, has a supportive family, and no prior times at suicide. Weakness is that patient engages in heavy substance abuse. INTELLECT: average IMPRESSIONS: Major depressive disorder, recurrent, severe Intellectual disability, mild Amphetamine type substance use disorder Cannabis use disorder Tobacco use disorder PLAN: -Patient is admitted under voluntary status to [facility] for stabilization of psychiatric symptoms and safety. Patient signed adult voluntary form and medication consent and is placed in patient's chart. -Medications : We will increase the patient's Zyprexa to 7.5 mg at bedtime with plans to titrate the medication to 10 mg at bedtime over the weekend for mood augmentation. We'll increase Prozac to 30 mg by mouth daily for depression/anxiety -Ativan and Haldol PRN for agitation/aggression -Patient was counselled on substance abuse and desired to cut back on use. The patient is interested in going to rehabilitation for his substance abuse. -Patient was informed of the risks, benefits and side effects of the medication and patient verbally consented to taking the medications. Patient signed med con sent form and was placed in chart. -Internal Medicine consult to perform medical evaluation and physical. -NRT - Nicorette gum. -SW on board for discharge planning. Encourage patient to participate in groups to work on coping skills. 04/13/21 12:16
[2021-04-13] MEDS: NICOTINE POLACRILEX 2 MG GUM BUCCAL PRN ×3 (12:17→20:00)
[2021-04-13 14:45] LABS: Hemoglobin A1C 6.2 % (4.0-6.0)
[2021-04-13] MEDS ORDERED: OLANZapine 7.5 MG TAB PO SCH (21:00)
[2021-04-14] MEDS: MAG HYDROX/AL HYDROX/SIMETH 30 ML CUP PO PRN ×2 (03:39→18:57)
[2021-04-14] MEDS: FLUoxetine HCL 10 MG CAP PO SCH (08:22)
[2021-04-14] MEDS: NICOTINE POLACRILEX 2 MG GUM BUCCAL PRN ×4 (08:23→19:14)
[2021-04-14] MEDS: ACETAMINOPHEN TAB 325 MG TAB PO PRN (16:22)
[2021-04-14] MEDS: OLANZapine 10 MG TAB PO SCH (20:06)
--- NOTE | 2021-04-14 23:12 | P.PN ---
Progress Note - Text Progress Note Date: 04/14/21 Subjective: Patient was seen today as a cross coverage for Dr. Temple. The patient was evaluated, chart reviewed, case discussed with the treatment team. Patient reports good fsleep last night, and appetite was reported as "fair]". Patient has been going to groups and other unit activities. The patient is compliant with his medications and denies any adverse reactions. Patient reports feeling better emotionally and he denies depression symptoms or severe anxiety. Denies any mood swings, irritability, or agitation. Denies any hallucinations, paranoid ideation, or delusions. Patient reports interested to continue his substance use treatment after discharge and to follow up with inpatient rehab program. Objective: Vitals has been reviewed. Mental status examination; Appearance: The patient appears stated age, adequately groomed and dressed, no specific features. Gait/posture: Normal gait, Normal arm swinging: No abnormal movements. Attitude and behavior: engaged, cooperative, eye contact. Motor activity: Normal psychomotor activity Speech: Normal rate, tone. Mood: Anxious Affect: Constricted Thought form: goal-directed, linear, coherent. Thought content: Non-delusional, denies suicidal thoughts, denies homicidal thoughts, denies intentions or plans. Perception: Denies any auditory or visual hallucinations Attention: No impairment. Orientation: Patient patient was fully oriented to time place person and situation. Insight: Patient has fair insight about his psychiatric disorder. Judgment: Patient has fair judgment about his psychiatric treatment. Assessment: Major depressive disorder, recurrent, severe Intellectual disability, mild Amphetamine type substance use disorder Cannabis use disorder Tobacco use disorder Plan: Continue inpatient level of care due to need for further monitoring and stabilization Precautions: Continue 15 minutes check for safety. Consider medical consultation if any acute medical issues arise. Provide the patient individual, group therapy, substance use disorder counseling to give better insight and learn coping skills. Medications: Continue Zyprexa for mood stabilization, and Prozac for depression and anxiety. Continue as needed medications for psychiatric emergencies including psychosis, agitation and anxiety. Continue non-psychiatric medications for medical conditions as recommended by the medical team. Discharge patient to OUTPATIENT services upon a stabilization
[2021-04-15 05:03] VITALS: RESP 16
[2021-04-15] MEDS: NICOTINE POLACRILEX 2 MG GUM BUCCAL PRN ×4 (07:21→21:10)
[2021-04-15] MEDS: FLUoxetine HCL 10 MG CAP PO SCH (08:36)
[2021-04-15] MEDS: ACETAMINOPHEN TAB 325 MG TAB PO PRN (12:08)
[2021-04-15] MEDS: MAG HYDROX/AL HYDROX/SIMETH 30 ML CUP PO PRN (18:50)
[2021-04-15] MEDS: OLANZapine 10 MG TAB PO SCH (21:09)
--- NOTE | 2021-04-15 23:31 | P.PN ---
Progress Note - Text Progress Note Date: 04/15/21 Subjective: Patient was seen today as a cross coverage for Dr. Temple. The patient was evaluated, chart reviewed, case discussed with the treatment team. Patient continued to report irritability of his mood and he denies depression or anxiety, or mood instability symptoms. Sleep is fine and he denies any appetite problem as per patient, and he continued to attend groups, and taking his medications as prescribed with no side effects. He denies any hallucinations, paranoid ideation, or delusions. Objective: Vitals has been reviewed. Mental status examination: Appearance: The patient appears stated age, adequately groomed and dressed, no specific features. Gait/posture: Normal gait, Normal arm swinging: No abnormal movements. Attitude and behavior: engaged, cooperative, eye contact. Motor activity: Normal psychomotor activity Speech: Normal rate, tone. Mood: "Fine" Affect: Constricted Thought form: goal-directed, linear, coherent. Thought content: Non-delusional, denies suicidal thoughts, denies homicidal thoughts, denies intentions or plans. Perception: Denies any auditory or visual hallucinations Attention: No impairment. Orientation: Patient patient was fully oriented to time place person and situation. Insight: Patient has fair insight about his psychiatric disorder. Judgment: Patient has fair judgment about his psychiatric treatment. Assessment: Major depressive disorder, recurrent, severe Intellectual disability, mild Amphetamine type substance use disorder Cannabis use disorder Tobacco use disorder Plan: Continue inpatient level of care due to need for further monitoring and stabilization Precautions: Continue 15 minutes check for safety. Consider medical consultation if any acute medical issues arise. Provide the patient individual, group therapy, substance use disorder counseling to give better insight and learn coping skills. Medications: Continue Zyprexa for mood stabilization, and Prozac for depression and anxiety. NRT. Continue as needed medications for psychiatric emergencies including psychosis, agitation and anxiety. Continue non-psychiatric medications for medical conditions as recommended by the medical team. Discharge patient to OUTPATIENT services upon a stabilization
[2021-04-16 07:08] VITALS: BP 136/80; PULSE 71; TEMP 97.6
[2021-04-16] MEDS: NICOTINE POLACRILEX 2 MG GUM BUCCAL PRN ×2 (08:31→12:08)
[2021-04-16] MEDS: FLUoxetine HCL 10 MG CAP PO SCH (08:32)
--- NOTE | 2021-04-16 12:02 | P.DS ---
Providers Date of admission: 04/12/21 21:50 Expected date of discharge: 04/16/21 Attending physician: Lupillo Temple MD Consults: 04/12/21 21:51 Consult Physician Routine Consulting Provider: Rich Yao Consult Reason/Comments: history and physical/medical management Do you want consulting provider notified?: Yes Primary care physician: Stated None - Discharge Diagnosis(es) (1) Major depressive disorder, recurrent severe without psychotic features Current Visit: Yes Status: Acute Priority: High (2) Methamphetamine use Current Visit: Yes Status: Chronic Priority: Medium (3) Cannabis use disorder, mild, abuse Current Visit: Yes Status: Chronic Priority: Medium (4) Nicotine dependence Current Visit: Yes Status: Chronic Priority: Medium Hospital Course: Admission HPI: Patient is a single, unemployed, currently homeless, 46-year-old male with significant history of methamphetamine abuse who presents to the hospital with suicidal ideation Patient presented to the hospital on 04/13/21, brought into the emergency department by his mother for increased depression and suicidal thoughts. The patient states that he recently relapsed into heavy methamphetamine use after being sober from meth for approximately 15 years prior. He states that he began using methamphetamines 2 months ago. The relapsed into methamphetamines his co usin to feel increased depression and anxiety along with suicidal ideation but without any plan. The patient endorses significant symptoms of depression including low mood, crying episodes, and excessive guilt. The patient states that he feels particularly guilty because he missed a court appearance because of his methamphetamine use that he needed to show up for in order to maintain visitation rights for his 2-year-old daughter. As per [facility] note when the patient was last evaluated on 01/31/21, the patient does have a significant history of anger and depressive issues. He initially dropped out of treatment about a year ago and began having anger issues after his left him and took his daughter. Prior to that appointment, the patient was off his medications for about 1 year. He was reporting significant symptoms of depression, including feelings of worthlessness and hopelessness at that visit. The patient stresses strong desire to quit methamphetamines and wishes to go to rehabilitation after this psychiatric admission. His primary goal of this admission is to get back on his medications. Patient is currently open with [facility] and has listed diagnoses of intellectual disability, major depressive disorder, amphetamine type substance use disorder, cannabis use disorder, generalized anxiety disorder, and tobacco use disorder. The patient only recalls ever being prescribed his Prozac and Zyprexa. The patient has had 3 prior inpatient psychiatric admissions on this unit starting in 2014 and his last admission being in April 2020. The patient does report a history of overdose but states that this was not a suicide attempt. Hospital course: Upon admission to the unit patient was initially endorsing significant symptoms depression and experiencing significant remorse due to his recent relapse into drug use. Despite this, the patient was future oriented and looking forward to receiving treatment for his relapse. Patient was directable and agreeable to [facility] treatment. The patient's home medications of Prozac and Zyprexa were continued and increased to address his target symptoms of depression and mood stabilization. Over the course of hospitalization, the patient participated in both individual and milieu therapies. He was also valid by the medical team for history and physical examination. The patient also got into contact with the access number to set up inpatient rehabilitation. The patient displayed significant improvement in regards to his mood, affect, and continues to be future and goal oriented. On the day of discharge, the patient is not reporting any suicidal or homicidal ideation, intention,/or plan. He denies any access to firearms or weapons. He is not reporting any auditory or visualizations. He is denying any paranoia or other delusions. The patient stresses strong desire to live for himself and for his family, in particular so he may see his daughter again. The patient does have a significant history of substance abuse however plans to go to inpatient substance-abuse rehab in the near future. The patient was counseled on his medications and need for regular adherence as well as appropriate outpatient follow-up. Prior to discharge, a family meeting will be arranged by social security benefits interviewer to answer any questions and ensure safety. Mental status exam: General Appearance: Patient appears to be stated age is alert, pleasant, and cooperative. Patient is in no acute distress and has fair hygiene and grooming. He has a thin build and multiple tattoos. Behavior: Patient is calmly seated without any agitated behavior. Eye contact is appropriate. Psychomotor activity appears normal. Speech: Patient's speech is fluent and nonpressured. Spontaneous, normal rate, tone, volume and fluency. Mood/Affect: Patient reports their mood is "much better", affect is congruent and euthymic to bright. Suicidality/Homicidality: Patient denies having any suicidal or homicidal ideation intent or plan. Perceptions: Patient denies any auditory or visual hallucinations. Though content/process: There is no evidence of any delusional thought content and thought process is linear and goal-directed. Patient is future and goal oriented. Memory and concentration: AOX3, grossly intact for the purposes of this session. Can spell "WORLD" backwards correctly. Judgment and insight: Improved with guarded prognosis Vital Signs Temp 97.6 F 04/16/21 07:06 Pulse 71 04/16/21 07:06 Resp 16 04/16/21 07:06 BP 136/80 04/16/21 07:06 Pulse Ox 97 04/12/21 22:35 Intake & Output 04/15/21 04/16/21 04/16/21 18:59 06:59 18:59 Weight 62.7 kg Impression: Major depressive disorder, recurrent, severe Intellectual disability, mild Amphetamine type substance use disorder Cannabis use disorder Tobacco use disorder Plan: -Continue with discharge today as patient has improved and stabilized psychiatrically and is not currently an imminent threat to himself and/or others. Patient will remain at chronically elevated risk for harm to self and/or others due to his impulsivity and polysubstance abuse. -Continue medications: Prozac 30 mg by mouth daily for depression/anxiety Zyprexa 10 mg daily at bedtime for mood augmentation/stabilization -Patient was counseled on the need for medication compliance and appropriate follow-up at mental health and also primary care for medical issues. Patient verbalized understanding and agreed. -Social work to arrange for and conduct family meeting to ensure safety upon discharge and answer any questions/concerns. Social work also to arrange for patients follow up appointments with [facility] for psychiatric care along with follow up with primary care provider. -Patient counseled on abstaining from recreational drugs and marijuana and alcohol. Was informed/educated on the adverse effects on their physical and mental health. Patient verbally agreed and understood. Patient plans to go to inpatient substance-abuse rehab in the near future. -Patient was instructed to return to the hospital or seek immediate medical care if their psychiatric or medical symptoms do worsen or reoccur. -Psychoeducation and supportive therapy provided to patient. Risks and benefits of pharmacological treatment versus the risks and benefits of nontreatment weight and discussed. Informed consent discussion held. Common side effects of psychotropics discussed such as, but not limited to headache, GI disturbance, sexual dysfunction, movement disorders, sedation, and orthostatic hypotension. Life threatening and blackbox warnings of prescribed medications also discussed. Potential risks of operating a vehicle or heavy machinery discussed with patient at length. Advised on importance of compliance and a reliable and responsible manner. Patient advised to review FDA consumer labeling of all medications prior to taking. Patient verbalized understanding of potential risks, and agrees with current treatment plan. Patient advised to medically contact physician/emergency personnel if any acute changes in condition occur. Allergies Allergy/AdvReac Type Severity Reaction Status Date / Time iodine Allergy Unknown Rash/Hives Verified 04/12/21 18:10 nicotine [From Nicoderm ] Allergy Rash/Hives Verified 04/12/21 18:10 Laboratory Results WBC 5.5 k/uL (3.8-10.6) 04/13/21 06:45 RBC 4.39 m/uL (4.30-5.90) 04/13/21 06:45 Hgb 14.3 gm/dL (13.0-17.5) 04/13/21 06:45 Hct 42.6 % (39.0-53.0) 04/13/21 06:45 MCV 96.9 fL (80.0-100.0) 04/13/21 06:45 MCH 32.5 pg (25.0-35.0) 04/13/21 06:45 MCHC 33.5 g/dL (31.0-37.0) 04/13/21 06:45 RDW 13.0 % (11.5-15.5) 04/13/21 06:45 Plt Count 279 k/uL (150-450) 04/13/21 06:45 MPV 7.2 04/13/21 06:45 Neutrophils % 53 % 04/13/21 06:45 Lymphocytes % 35 % 04/13/21 06:45 Monocytes % 6 % 04/13/21 06:45 Eosinophils % 3 % 04/13/21 06:45 Basophils % 1 % 04/13/21 06:45 Neutrophils # 2.9 k/uL (1.3-7.7) 04/13/21 06:45 Lymphocytes # 1.9 k/uL (1.0-4.8) 04/13/21 06:45 Monocytes # 0.3 k/uL (0-1.0) 04/13/21 06:45 Eosinophils # 0.2 k/uL (0-0.7) 04/13/21 06:45 Basophils # 0.1 k/uL (0-0.2) 04/13/21 06:45 Sodium 139 mmol/L (137-145) 04/13/21 06:45 Potassium 4.9 mmol/L (3.5-5.1) 04/13/21 06:45 Chloride 103 mmol/L (98-107) 04/13/21 06:45 Carbon Dioxide 30 mmol/L (22-30) 04/13/21 06:45 Anion Gap 6 mmol/L 04/13/21 06:45 BUN 9 mg/dL (9-20) 04/13/21 06:45 Creatinine 0.72 mg/dL (0.66-1.25) 04/13/21 06:45 Est GFR (CKD-EPI)AfAm >90 (>60 ml/min/1.73 sqM) 04/13/21 06:45 Est GFR (CKD-EPI)NonAf >90 (>60 ml/min/1.73 sqM) 04/13/21 06:45 Glucose 103 mg/dL (74-99) H 04/13/21 06:[address] Glu mg/dL 131 04/13/21 06:45 Hemoglobin A1c 6.2 % (4.0-6.0) H 04/13/21 06:45 Calcium 9.8 mg/dL (8.4-10.2) 04/13/21 06:45 Total Bilirubin 0.2 mg/dL (0.2-1.3) 04/13/21 06:45 AST 41 U/L (17-59) 04/13/21 06:45 ALT 109 U/L (4-49) H 04/13/21 06:45 Alkaline Phosphatase 84 U/L (38-126) 04/13/21 06:45 Total Protein 6.5 g/dL (6.3-8.2) 04/13/21 06:45 Albumin 3.8 g/dL (3.5-5.0) 04/13/21 06:45 Triglycerides 132.0 mg/dL (0.0-149.0) 04/13/21 06:45 Cholesterol 206 mg/dL (0-200) H 04/13/21 06:45 LDL Cholesterol, Calc 121.6 mg/dL (0.0-131.0) 04/13/21 06:45 VLDL Cholesterol, Calc 26.40 mg/dL (5.00-40.00) 04/13/21 06:45 HDL Cholesterol 58.0 mg/dL (40.0-60.0) 04/13/21 06:45 Cholesterol/HDL Ratio 3.55 04/13/21 06:45 TSH 1.920 mIU/L (0.465-4.680) 04/13/21 06:45 Urine Opiates Screen Not Detected (NotDetected) 04/12/21 19:22 Ur Oxycodone Screen Not Detected (NotDetected) 04/12/21 19:22 Urine Methadone Screen Not Detected (NotDetected) 04/12/21 19:22 Ur Propoxyphene Screen Not Detected (NotDetected) 04/12/21 19:22 Ur Barbiturates Screen Not Detected (NotDetected) 04/12/21 19:22 U Tricyclic Antidepress Not Detected (NotDetected) 04/12/21 19:22 Ur Phencyclidine Scrn Not Detected (NotDetected) 04/12/21 19:22 Ur Amphetamines Screen Not Detected (NotDetected) 04/12/21 19:22 U Methamphetamines Scrn Not Detected (NotDetected) 04/12/21 19:22 U Benzodiazepines Scrn Not Detected (NotDetected) 04/12/21 19:22 Urine Cocaine Screen Not Detected (NotDetected) 04/12/21 19:22 U Marijuana (THC) Screen Detected (NotDetected) H 04/12/21 19:22 Patient Condition at Discharge: Stable Plan - Discharge Summary Discharge Rx Participant: No New Discharge Prescriptions: New FLUoxetine HCL [PROzac] 30 mg PO DAILY 30 Days cap OLANZapine [ZyPREXA] 10 mg PO HS 30 Days tab Nicotine Polacrilex [Nicorette] 2 mg BUCCAL Q4HR PRN 30 Days gum PRN Reason: Nicotine Cravings Discontinued OLANZapine [ZyPREXA] 5 mg PO HS 30 Days tab FLUoxetine HCL [PROzac] 10 mg PO DAILY Discharge Medication List FLUoxetine HCL [PROzac] 30 mg PO DAILY 30 Days cap 04/16/21 [Rx] Nicotine Polacrilex [Nicorette] 2 mg BUCCAL Q4HR PRN 30 Days gum 04/16/21 [Rx] OLANZapine [ZyPREXA] 10 mg PO HS 30 Days tab 04/16/21 [Rx] Follow up Appointment(s)/Referral(s): [facility] [NON-STAFF] - 1 Week Patient Instructions/Handouts: How to Stop Smoking (DC), Depression (DC) Activity/Diet/Wound Care/Special Instructions: Activity and diet as tolerated. Avoid the use of street drugs and alcohol. Take all medications as prescribed. When you are in need of refills on your medications please contact your medical provider and/or outpatient psychiatrist to have this done. Please go to scheduled outpatient appointment for aftercare treatment. If symptoms return or become worse, call the crisis line at and/or go to the nearest emergency room for evaluation. Discharge Disposition: HOME SELF-CARE
== END 2021-04-16 14:23 | disposition home or self-care (01) | DRG 885 ==
LOC: EC 16:48 → 3MHU 21:50
PROVIDERS: ADMIT Psychiatry & Neurology Psychiatry; ATTEND Psychiatry & Neurology Psychiatry
DX: F33.2 Major depressive disorder, recurrent severe without psychotic features (principal); R45.851 Suicidal ideations; F41.1 Generalized anxiety disorder; F15.90 Other stimulant use, unspecified, uncomplicated; F70 Mild intellectual disabilities; F12.10 Cannabis abuse, uncomplicated; F17.210 Nicotine dependence, cigarettes, uncomplicated; Z59.0 Homelessness; Z79.899 Other long term (current) drug therapy
CPT/HCPCS: 80053; 80061; 80306; 82075; 83036; 84443; 85025; 99285

== ENCOUNTER 2021-08-24 16:49 | Emergency (ER) | payer MEDICARE, OTHER ==
[2021-08-24 20:00] VITALS: RESP 20
[2021-08-24 20:44] LABS: Amphetamine Screen,Urine Detected (NotDetected); Barbiturate Screen,Urine Not Detected (NotDetected); Benzodiazepines Screen,Urine Not Detected (NotDetected); Cocaine Screen,Urine Not Detected (NotDetected); Methadone Screen, Urine Not Detected (NotDetected); Opiate Screen,Urine Not Detected (NotDetected); Oxycodone Screen, Urine Not Detected (NotDetected); Phencyclidine Screen,Urine Not Detected (NotDetected); Tricyclic Antidepressant,Urine Not Detected (NotDetected); Urn Cannabinoid Scrn Detected (NotDetected)
--- NOTE | 2021-08-24 22:39 | ED ---
Psych HPI - General Chief Complaint: Psychiatric Symptoms Stated Complaint: Mental Health Time Seen by Provider: 08/24/21 22:28 Source: patient, family, RN notes reviewed, old records reviewed Mode of arrival: ambulatory Limitations: no limitations - History of Present Illness Initial Comments: Fall this is a 46-year-old male DF. Patient Dese for psychiatric evaluation. No known emergency room in for psychiatric illness. Is having worsening suicidal thoughts and depression with recent drug and alcohol abuse MD Complaint: suicidal ideation, feels depressed -: days(s) (4) Associated Psychiatric Symptoms: depression, suicidal ideation History of same: Yes Quality: intermittent, getting worse Improves With: none Worsens With: none Context: recent drug abuse, not taking psychiatric medications, significant life stressor Associated Symptoms: denies other symptoms Treatments Prior to Arrival: placed on mental health hold If Self Harm: admits thoughts of self harm - Related Data Previous Rx's Medication Instructions Recorded FLUoxetine HCL [PROzac] 30 mg PO DAILY 30 Days cap 04/16/21 Nicotine Gum (Polacrilex) 2 mg BUCCAL Q4HR PRN 30 Days gum 04/16/21 [Nicorette] OLANZapine [ZyPREXA] 10 mg PO HS 30 Days tab 04/16/21 Gabapentin 300 mg PO TID 7 Days #21 cap 08/25/21 Allergies Allergy/AdvReac Type Severity Reaction Status Date / Time iodine Allergy Unknown Rash/Hives Verified 08/24/21 20:01 nicotine [From Nicoderm CQ] Allergy Rash/Hives Verified 08/24/21 20:01 Review of Systems ROS Statement: Those systems with pertinent positive or pertinent negative responses have been documented in the HPI. ROS Other: All systems not noted in ROS Statement are negative. Past Medical History Past Medical History: Osteoarthritis (OA) Additional Past Medical History / Comment(s): depresssion, sleep apnea History of Any Multi-Drug Resistant Organisms: None Reported Past Surgical History: Orthopedic Surgery Additional Past Surgical History / Comment(s): Right knee osteotomy Past Anesthesia/Blood Transfusion Reactions: No Reported Reaction Past Psychological History: Bipolar, Depression Smoking Status: Current every day smoker Past Alcohol Use History: None Reported Past Drug Use History: Marijuana, Methamphetamine - Past Family History Father Family Medical History: Unable to Obtain Mother Family Medical History: Unable to Obtain Additional Family Medical History / Comment(s): Patient states he does not know anything about his mother or father's health. He does have 1 daughter. He also has 1 brother and 2 sisters that are healthy. General Exam Limitations: no limitations General appearance: alert, in no apparent distress Head exam: Present: atraumatic, normocephalic, normal inspection Eye exam: Present: normal appearance, PERRL, EOMI. Absent: scleral icterus, conjunctival injection, periorbital swelling ENT exam: Present: normal exam, mucous membranes moist Neck exam: Present: normal inspection. Absent: tenderness, meningismus, lymphadenopathy Respiratory exam: Present: normal lung sounds bilaterally. Absent: respiratory distress, wheezes, rales, rhonchi, stridor Cardiovascular Exam: Present: regular rate, normal rhythm, normal heart sounds. Absent: systolic murmur, diastolic murmur, rubs, gallop, clicks GI/Abdominal exam: Present: soft, normal bowel sounds. Absent: distended, tenderness, guarding, rebound, rigid Extremities exam: Present: normal inspection, full ROM, normal capillary refill. Absent: tenderness, pedal edema, joint swelling, calf tenderness Back exam: Present: normal inspection Neurological exam: Present: alert, oriented X3, CN II-XII intact Psychiatric exam: Present: normal affect, normal mood Skin exam: Present: warm, dry, intact, normal color. Absent: rash Course Vital Signs 08/24/21 19:57 Temperature 98.6 F Pulse Rate 77 Respiratory 20 Rate Blood Pressure 131/84 O2 Sat by Pulse 97 Oximetry - Reevaluation(s) Reevaluation #1: 08/25/21 01:16 Record is reviewed 08/25/21 01:16 medically Clear for psychiatric evaluation Medical Decision Making - Medical Decision Making 46 male to the ER today. Patient presents today for evaluation regards to psychiatric illness. Patient is seen and evaluated here, given prescription for medication currently no distress not suicidal can be discharged home - Lab Data Lab Results 08/24/21 Range/Units 20:05 Urine Opiates Screen Not Detected (NotDetected) Ur Oxycodone Screen Not Detected (NotDetected) Urine Methadone Screen Not Detected (NotDetected) Ur Propoxyphene Screen Not Detected (NotDetected) Ur Barbiturates Screen Not Detected (NotDetected) U Tricyclic Antidepress Not Detected (NotDetected) Ur Phencyclidine Scrn Not Detected (NotDetected) Ur Amphetamines Screen Detected H (NotDetected) U Methamphetamines Scrn Detected H (NotDetected) U Benzodiazepines Scrn Not Detected (NotDetected) Urine Cocaine Screen Not Detected (NotDetected) U Marijuana (THC) Screen Detected H (NotDetected) Disposition Clinical Impression: Major depressive disorder, recurrent severe without psychotic features, Cannabis use disorder, mild, abuse, Methamphetamine use disorder, moderate, in sustained remission, in controlled environment, dependence, Intentional overdose of drug in tablet form, Depression, Bipolar depression Disposition: HOME SELF-CARE Condition: Fair Prescriptions: Gabapentin 300 mg PO TID 7 Days #21 cap Is patient prescribed a controlled substance at d/c from ED?: No Referrals: None,Stated [Primary Care Provider] - 1-2 days
[2021-08-24] MEDS ORDERED: ONDANSETRON ODT 4 MG TAB PO STA (23:47)
[2021-08-25] MEDS ORDERED: LORazepam 1 MG TAB PO STA (01:03)
[2021-08-25] MEDS ORDERED: GABAPENTIN 300 MG CAP PO STA (01:13)
[2021-08-25 01:35] VITALS: BP 128/80; PULSE 72; TEMP 98.4
== END 2021-08-25 01:33 | disposition home or self-care (01) ==
LOC: EC 16:49
DX: F32.2 Major depressive disorder, single episode, severe without psychotic features (principal); F12.90 Cannabis use, unspecified, uncomplicated; F15.20 Other stimulant dependence, uncomplicated; T50.992A Poisoning by other drugs, medicaments and biological substances, intentional self-harm, initial encounter; M19.90 Unspecified osteoarthritis, unspecified site; F17.200 Nicotine dependence, unspecified, uncomplicated
CPT/HCPCS: 80306; 99284

== ENCOUNTER 2021-11-30 09:39 | Emergency (ER) | payer MEDICARE, OTHER ==
[2021-11-30 09:42] VITALS: BP 134/77; PULSE 77; RESP 20; TEMP 97.2
--- NOTE | 2021-11-30 10:13 | ED ---
Lower Extremity Injury HPI - General Chief Complaint: Extremity Injury, Lower Stated Complaint: lt hip pain Time Seen by Provider: 11/30/21 09:43 Source: patient, RN notes reviewed, old records reviewed Mode of arrival: ambulatory Limitations: no limitations - History of Present Illness Initial Comments: 46-year-old male presents emergency Department with complaints of left hip pain starting this morning. Patient reports he may have strained it while at work or walking. Patient states that he has had no fall or trauma to the hip. He reports he has not taken any pain medication for this. Denies any rashes or skin changes to the hip. - Related Data Previous Rx's Medication Instructions Recorded FLUoxetine HCL [PROzac] 30 mg PO DAILY 30 Days cap 04/16/21 Nicotine Gum (Polacrilex) 2 mg BUCCAL Q4HR PRN 30 Days gum 04/16/21 [Nicorette] OLANZapine [ZyPREXA] 10 mg PO HS 30 Days tab 04/16/21 Gabapentin 300 mg PO TID 7 Days #21 cap 08/25/21 Ibuprofen 600 mg PO Q8H #20 tab 11/30/21 Allergies Allergy/AdvReac Type Severity Reaction Status Date / Time iodine Allergy Unknown Rash/Hives Verified 11/30/21 09:42 nicotine [From Nicoderm CQ] Allergy Rash/Hives Verified 11/30/21 09:42 Review of Systems ROS Statement: Those systems with pertinent positive or pertinent negative responses have been documented in the HPI. ROS Other: All systems not noted in ROS Statement are negative. Past Medical History Past Medical History: Osteoarthritis (OA) Additional Past Medical History / Comment(s): depresssion, sleep apnea History of Any Multi-Drug Resistant Organisms: None Reported Past Surgical History: Orthopedic Surgery Additional Past Surgical History / Comment(s): Right knee osteotomy Past Anesthesia/Blood Transfusion Reactions: No Reported Reaction Past Psychological History: Bipolar, Depression Smoking Status: Current every day smoker Past Alcohol Use History: None Reported Past Drug Use History: Marijuana, Methamphetamine - Past Family History Father Family Medical History: Unable to Obtain Mother Family Medical History: Unable to Obtain Additional Family Medical History / Comment(s): Patient states he does not know anything about his mother or father's health. He does have 1 daughter. He also has 1 brother and 2 sisters that are healthy. General Exam - General Exam Comments Initial Comments: This is a 46-year-old male. Alert and oriented. No acute distress. Limitations: no limitations General appearance: alert, in no apparent distress Head exam: Present: atraumatic, normocephalic, normal inspection Eye exam: Present: normal appearance, PERRL, EOMI. Absent: scleral icterus, conjunctival injection, periorbital swelling ENT exam: Present: normal exam, mucous membranes moist Neck exam: Present: normal inspection. Absent: tenderness, meningismus, lymphadenopathy Respiratory exam: Present: normal lung sounds bilaterally. Absent: respiratory distress, wheezes, rales, rhonchi, stridor Cardiovascular Exam: Present: regular rate, normal rhythm, normal heart sounds. Absent: systolic murmur, diastolic murmur, rubs, gallop, clicks GI/Abdominal exam: Present: soft, normal bowel sounds. Absent: distended, tenderness, guarding, rebound, rigid Extremities exam: Present: normal inspection, full ROM, normal capillary refill. Absent: tenderness, pedal edema, joint swelling, calf tenderness Left Hip exam: Present: normal inspection, full ROM, tenderness (Patient is tenderness over the IT band.) Upper Leg exam: Present: normal inspection, full ROM Knee exam: Present: normal inspection, full ROM Lower Leg exam: Present: normal inspection, full ROM Ankle exam: Present: normal inspection, full ROM Neurovascular tendon exam: Present: no vascular compromise Back exam: Present: normal inspection Neurological exam: Present: alert, oriented X3, CN II-XII intact Psychiatric exam: Present: normal affect, normal mood Skin exam: Present: warm, dry, intact, normal color. Absent: rash Course Vital Signs 11/30/21 09:40 Temperature 97.2 F L Pulse Rate 77 Respiratory 20 Rate Blood Pressure 134/77 O2 Sat by Pulse 96 Oximetry Medical Decision Making - Medical Decision Making 46-year-old male presents not right left hip pain with range of motion. He reports it's been intermittently purulent nasal sprain and strain to be a joint and is tender over the IT band. Advised Patient to do passive stretches and take anti-inflammatory medicine and increase hydration. Patient agrees treatment plan. Disposition Clinical Impression: Left hip pain, IT band syndrome Disposition: HOME SELF-CARE Condition: Good Instructions (If sedation given, give patient instructions): Hip Sprain (ED) Additional Instructions: Patient should increase fluid intake. Take anti-inflammatory medication with food. Patient should do stretches of the hip. Return to ED if any alarming sings or symptoms occur. Prescriptions: Ibuprofen 600 mg PO Q8H #20 tab Is patient prescribed a controlled substance at d/c from ED?: No Referrals: None,Stated [Primary Care Provider] - 1-2 days Time of Disposition: 10:11
== END 2021-11-30 10:20 | disposition home or self-care (01) ==
LOC: EC 09:39
DX: M76.32 Iliotibial band syndrome, left leg (principal); M19.90 Unspecified osteoarthritis, unspecified site; F31.9 Bipolar disorder, unspecified; F17.200 Nicotine dependence, unspecified, uncomplicated; F12.90 Cannabis use, unspecified, uncomplicated; F15.90 Other stimulant use, unspecified, uncomplicated; Z79.899 Other long term (current) drug therapy
CPT/HCPCS: 99283

== ENCOUNTER 2021-12-01 15:47 | Emergency (ER) | payer MEDICARE, OTHER ==
[2021-12-01 15:51] VITALS: BP 160/76; PULSE 99; RESP 16; TEMP 97.3
[2021-12-01] MEDS ORDERED: ACETAMINOPHEN TAB 325 MG TAB PO STA (16:31)
--- NOTE | 2021-12-01 16:44 | ED ---
ENT HPI - General Source: patient Mode of arrival: ambulatory Limitations: no limitations <Kurtis Oakley - Last Filed: 12/01/21 23:02> <Sheba Sharma - Last Filed: 12/02/21 09:35> - General Chief complaint: Dental/Oral Stated complaint: Tooth infection Time Seen by Provider: 12/01/21 15:56 - History of Present Illness Initial comments: Patient is a 46-year-old male presenting with chief complaint of tooth pain. Pain began upon awakening this morning, he noticed new redness and swelling to the right upper jaw and cheek. He has a known tooth injury into that region. He states that he has a dentist but he does not follow with them regularly. He took Motrin prior to presentation which alleviated the pain somewhat. He denies fever, chills, nausea, vomiting, headache, trismus, dysphagia, shortness of breath, chest pain, abdominal pain. (Kurtis Oakley) - Related Data Previous Rx's Medication Instructions Recorded FLUoxetine HCL [PROzac] 30 mg PO DAILY 30 Days cap 04/16/21 Nicotine Gum (Polacrilex) 2 mg BUCCAL Q4HR PRN 30 Days gum 04/16/21 [Nicorette] OLANZapine [ZyPREXA] 10 mg PO HS 30 Days tab 04/16/21 Gabapentin 300 mg PO TID 7 Days #21 cap 08/25/21 Ibuprofen 600 mg PO Q8H #20 tab 11/30/21 Amoxicillin/Potassium Clav 1 tab PO BID 10 Days #20 tab 12/01/21 [Augmentin 875-125 Tablet] Allergies Allergy/AdvReac Type Severity Reaction Status Date / Time iodine Allergy Unknown Rash/Hives Verified 12/01/21 15:49 nicotine [From Nicoderm CQ] Allergy Rash/Hives Verified 12/01/21 15:49 Review of Systems ROS Other: All systems not noted in ROS Statement are negative. <Kurtis Oakley - Last Filed: 12/01/21 23:02> ROS Other: All systems not noted in ROS Statement are negative. <Sheba Sharma - Last Filed: 12/02/21 09:35> ROS Statement: Those systems with pertinent positive or pertinent negative responses have been documented in the HPI. Past Medical History Past Medical History: Osteoarthritis (OA) Additional Past Medical History / Comment(s): depresssion, sleep apnea History of Any Multi-Drug Resistant Organisms: None Reported Past Surgical History: Orthopedic Surgery Additional Past Surgical History / Comment(s): Right knee osteotomy Past Anesthesia/Blood Transfusion Reactions: No Reported Reaction Past Psychological History: Bipolar, Depression Smoking Status: Current every day smoker Past Alcohol Use History: None Reported Past Drug Use History: Marijuana, Methamphetamine - Past Family History Father Family Medical History: Unable to Obtain Mother Family Medical History: Unable to Obtain Additional Family Medical History / Comment(s): Patient states he does not know anything about his mother or father's health. He does have 1 daughter. He also has 1 brother and 2 sisters that are healthy. <Kurtis Oakley - Last Filed: 12/01/21 23:02> General Exam Limitations: no limitations General appearance: alert, in no apparent distress Head exam: Present: atraumatic, normocephalic, normal inspection Eye exam: Present: normal appearance, PERRL, EOMI. Absent: scleral icterus, conjunctival injection, periorbital swelling ENT exam: Present: mucous membranes moist Expanded Teeth exam: Present: dental caries, fractured tooth #, dental tenderness # Throat exam: normal inspection Neck exam: Present: normal inspection. Absent: tenderness Respiratory exam: Present: normal lung sounds bilaterally. Absent: respiratory distress, wheezes, rales, rhonchi, stridor Cardiovascular Exam: Present: regular rate, normal rhythm, normal heart sounds. Absent: systolic murmur, diastolic murmur, rubs, gallop, clicks Neurological exam: Present: alert, oriented X3, CN II-XII intact Psychiatric exam: Present: normal affect, normal mood Skin exam: Present: warm, dry, intact, normal color. Absent: rash <Kurtis Oakley - Last Filed: 12/01/21 23:02> Course Vital Signs 12/01/21 15:49 Temperature 97.3 F L Pulse Rate 99 Respiratory 16 Rate Blood Pressure 160/76 O2 Sat by Pulse 98 Oximetry Medical Decision Making <Kurtis Oakley - Last Filed: 12/01/21 23:02> <Sheba Sharma - Last Filed: 12/02/21 09:35> - Medical Decision Making Patient is a 46-year-old male presenting with chief complaint of dental pain. Symptoms began upon awakening today. Patient has a known tooth injury on the right upper side, which is where the redness and swelling are located. He denies fever, chills, trismus, dysphagia, shortness of breath, nausea, vomiting. He has been taking Motrin which has provided some relief. On examination there is redness and swelling of the right cheek and right upper jaw. There is a missing tooth in the region. Abscess does not appear drainable at this time. Patient was given Tylenol and Augmentin 875mg two times a day for 7 days. Continue to take Tylenol Motrin at home for pain relief as needed. Follow-up with dentist in the next 1-2 days. Report back to ER with any worsening symptoms. I educated the patient on return parameters and answered all questions. Patient conveyed verbal understanding and agreed to the plan. I discussed the case with my attending Dr. Sharma. (Kurtis Oakley) I was available for consultation in the emergency department. The history and physical exam were done by the midlevel provider. I was consulted for this patients care. I reviewed the case with the midlevel provider and based on their presentation of the patient, I agree with the assessment, medical decision making and plan of care as documented. Chart was dictated using [employer] dictation software. Attempts were made to correct any dictation errors however some typographical errors may persist. Patient was seen during a national state of emergency due to the Covid-19 pandemic. (Sheba Sharma) Disposition Is patient prescribed a controlled substance at d/c from ED?: No Time of Disposition: 16:45 <Kurtis Oakley - Last Filed: 12/01/21 23:02> <Sheba Sharma - Last Filed: 12/02/21 09:35> Clinical Impression: Dental abscess Disposition: HOME SELF-CARE Condition: Good Instructions (If sedation given, give patient instructions): Dental Abscess (ED) Additional Instructions: Motrin and Tylenol for pain control as needed. Follow-up with dentist and primary care in 1-2 days. Take medication as prescribed. Report back to the ER with any worsening symptoms or new onset alarm symptoms, including but not limited to fever, chills, difficulty swallowing, shortness of breath. Prescriptions: Amoxicillin/Potassium Clav [Augmentin 875-125 Tablet] 1 tab PO BID 10 Days #20 tab Referrals: None,Stated [Primary Care Provider] - 1-2 days
== END 2021-12-01 16:54 | disposition home or self-care (01) ==
LOC: EC 15:47
DX: K04.7 Periapical abscess without sinus (principal); K02.9 Dental caries, unspecified; M19.90 Unspecified osteoarthritis, unspecified site; F31.9 Bipolar disorder, unspecified; F17.200 Nicotine dependence, unspecified, uncomplicated; F12.90 Cannabis use, unspecified, uncomplicated; F15.90 Other stimulant use, unspecified, uncomplicated; Z79.899 Other long term (current) drug therapy
CPT/HCPCS: 99282

== ENCOUNTER → 2023-01-18 | Outpatient (CLI) | payer MEDICARE, OTHER ==
[2023-01-18 13:44] LABS: Basophils # (A) 0.03 X 10*3/uL (0.00-0.10); Basophils % (A) 0.6 %; Eosinophils # (A) 0.07 X 10*3/uL (0.04-0.35); Eosinophils % (A) 1.4 %; HCT 44.8 % (39.6-50.0); HGB 14.8 g/dL (13.0-17.0); Immature Grans, Automated 0.2 %; Lymphocytes # (A) 1.78 X 10*3/uL (0.90-5.00); Lymphocytes % (A) 36.4 %; MCH 30.8 pg (27.0-32.0); MCV 93.3 fL (80.0-97.0); Mean Platelet Volume 10.2 fL (9.5-12.2); Monocytes # (A) 0.25 X 10*3/uL (0.20-1.00); Monocytes % (A) 5.1 %; NRBC Per 100 WBC 0 /100 WBCS (0.0-0.0); Neutrophils # (A) 2.75 X 10*3/uL (1.80-7.70); Neutrophils % (A) 56.3 %; Platelet Count 218 X 10*3/uL (140-440); RDW 13.6 % (11.5-14.5); WBC 4.89 X 10*3/uL (4.50-10.00)
[2023-01-18 13:59] LABS: ALT 20 U/L (10-49); AST 24 U/L (14-35); African American GFR (CKD) 118.3 (60.0-200.0); Albumin 4.5 g/dL (3.8-4.9); Albumin/Globulin Ratio 1.88 (1.60-3.17); Alkaline Phosphatase 88 U/L (41-126); BUN/Creat Ratio 11.67 Ratio (12.00-20.00); Blood Urea Nitrogen 10.5 mg/dL (9.0-27.0); Calcium 9.7 mg/dL (8.7-10.3); Carbon Dioxide 24.5 mmol/L (20.0-27.5); Chloride 104 mmol/L (96-109); Chol/HDL Ratio 2.83 Ratio; Globulin 2.4 g/dL (1.6-3.3); Glucose 96 mg/dL (70-110); LDL Cholesterol,Calculated 70.2 mg/dL (0.0-131.0); Non-African American GFR(CKD) 102.1 (60.0-200.0); Potassium 5.1 mmol/L (3.5-5.5); Sodium 139 mmol/L (135-145); Total Protein 6.9 g/dL (6.2-8.2)
== END | disposition home or self-care (01) ==
LOC: LABWHC1 08:58
PROVIDERS: ATTEND Nurse Practitioner
DX: E78.5 Hyperlipidemia, unspecified (principal); R73.03 Prediabetes; Z79.899 Other long term (current) drug therapy
CPT/HCPCS: 36415; 80053; 80061; 82306; 83036; 84439; 84443; 85025

== ENCOUNTER 2023-03-20 10:42 | Emergency (ER) | payer MEDICARE, OTHER ==
[2023-03-20 10:47] VITALS: RESP 16
[2023-03-20] MEDS ORDERED: KETOROLAC 15 MG/ML 1 ML VIAL IM STA (11:12)
[2023-03-20] MEDS ORDERED: LIDOCAINE 5% PATCH TOPICAL STA (11:12)
[2023-03-20] MEDS ORDERED: ORPHENADRINE 30 MG/ML 2 ML VIAL IM STA (11:12)
[2023-03-20] MEDS ORDERED: CYCLOBENZAPRINE 5 MG TAB PO STA (11:13)
--- NOTE | 2023-03-20 12:14 | ED ---
Back Pain HPI - General Chief Complaint: Back Pain/Injury Stated Complaint: Lower back pain Time Seen by Provider: 03/20/23 10:53 Source: patient Limitations: no limitations - History of Present Illness Initial Comments: Patient is a 47-year-old male presents to the emergency department for lower back pain. It started on Friday. Patient denies injury but states he was doing lesli at work. Took Percocet without relief. He denies numbness and tingling. Denies loss of bowel or bladder function. Denies leg weakness. - Related Data Home Medications Medication Instructions Recorded Confirmed Atorvastatin [Lipitor] 40 mg PO DAILY 03/20/23 03/20/23 FLUoxetine HCL [PROzac] 10 mg PO DAILY 03/20/23 03/20/23 FLUoxetine HCL [PROzac] 20 mg PO DAILY 03/20/23 03/20/23 Omeprazole 20 mg PO DAILY 03/20/23 03/20/23 Previous Rx's Medication Instructions Recorded OLANZapine [ZyPREXA] 10 mg PO HS 30 Days tab 04/16/21 Cyclobenzaprine [Flexeril] 5 mg PO TID PRN #15 tablet 03/20/23 Ibuprofen [Motrin] 600 mg PO Q8HR PRN #30 tab 03/20/23 Lidocaine 5% Patch [Lidoderm 5% 1 patch TOPICAL DAILY PRN #7 patch 03/20/23 Patch] Allergies Allergy/AdvReac Type Severity Reaction Status Date / Time iodine Allergy Unknown Rash/Hives Verified 03/20/23 11:31 nicotine [From Nicoderm CQ] Allergy Rash/Hives Verified 03/20/23 11:31 Review of Systems ROS Statement: Those systems with pertinent positive or pertinent negative responses have been documented in the HPI. ROS Other: All systems not noted in ROS Statement are negative. Past Medical History Past Medical History: Osteoarthritis (OA) Additional Past Medical History / Comment(s): depresssion, sleep apnea History of Any Multi-Drug Resistant Organisms: None Reported Past Surgical History: Orthopedic Surgery Additional Past Surgical History / Comment(s): Right knee osteotomy Past Anesthesia/Blood Transfusion Reactions: No Reported Reaction Past Psychological History: Bipolar, Depression Smoking Status: Current every day smoker Past Alcohol Use History: None Reported Past Drug Use History: Marijuana, Methamphetamine - Past Family History Father Family Medical History: Unable to Obtain Mother Family Medical History: Unable to Obtain Additional Family Medical History / Comment(s): Patient states he does not know anything about his mother or father's health. He does have 1 daughter. He also has 1 brother and 2 sisters that are healthy. General Exam Limitations: no limitations General appearance: alert, in no apparent distress Respiratory exam: Present: normal lung sounds bilaterally. Absent: respiratory distress, wheezes, rales, rhonchi, stridor Cardiovascular Exam: Present: regular rate, normal rhythm, normal heart sounds. Absent: systolic murmur, diastolic murmur, rubs, gallop, clicks Back exam: Present: normal inspection, full ROM, paraspinal tenderness (lumbar). Absent: vertebral tenderness Neurological exam: Present: alert, oriented X3, CN II-XII intact Psychiatric exam: Present: normal affect, normal mood Skin exam: Present: warm, dry, intact, normal color. Absent: rash Course Vital Signs 03/20/23 03/20/23 10:45 12:24 Temperature 98.5 F 98.0 F Pulse Rate 72 69 Respiratory 16 16 Rate Blood Pressure 121/70 118/79 O2 Sat by Pulse 95 96 Oximetry Medical Decision Making - Medical Decision Making Was pt. sent in by a medical professional or institution (, PA, BAGGAGE AND MAIL AGENT, urgent care, hospital, or senior care...) When possible be specific @ -No Did you speak to anyone other than the patient for history (EMS, parent, family, police, friend...)? What history was obtained from this source @ -No Did you review nursing and triage notes (agree or disagree)? Why? @ -I reviewed and agree with nursing and triage notes Were old charts reviewed (outside hosp., previous admission, EMS record, old EKG, old radiological studies, urgent care reports/EKG's, senior care records)? Report findings @ -No old charts were reviewed Differential Diagnosis (chest pain, altered mental status, abdominal pain women, abdominal pain men, vaginal bleeding, weakness, fever, dyspnea, syncope, headache, dizziness, GI bleed, back pain, seizure, CVA, palpatations, mental health)? @ -Differential Back Pain: Strain, zoster, cauda equina syndrome, epidural abscess, vertebral osteomyelitis, discitis, fracture, subluxation, disc herniation, DJD, spinal stenosis, dissection, AAA, pancreatitis, peptic ulcer disease, pyelonephritis, kidney stone, this is not meant to be an all-inclusive list. EKG interpreted by me (3pts min.). @ -As above X-rays interpreted by me (1pt min.). @ -None done CT interpreted by me (1pt min.). @ -None done U/S interpreted by me (1pt. min.). @ -None done What testing was considered but not performed or refused? (CT, X-rays, U/S, labs)? Why? @Considered imaging however no midline tenderness. No neurological deficit What meds were considered but not given or refused? Why? @ -None Did you discuss the management of the patient with other professionals (professionals i.e. DrReshma, PA, BAGGAGE AND MAIL AGENT, lab, RT, psych nurse, social media project manager, building performance consultant, teacher, sustainability officer, employment evaluator/case manager)? Give summary @ -No Was smoking cessation discussed for >3mins.? @ -No Was critical care preformed (if so, how long)? @ -No Were there social determinants of health that impacted care today? How? (Homelessness, low income, unemployed, alcoholism, drug addiction, transportati on, low edu. Level, literacy, decrease access to med. care, skilled nursing, rehab)? @ -No Was there de-escalation of care discussed even if they declined (Discuss DNR or withdrawal of care, Hospice)? DNR status @ -No What co-morbidities impacted this encounter? (DM, HTN, Smoking, COPD, CAD, Cancer, CVA, ARF, Chemo, Hep., AIDS, mental health diagnosis, sleep apnea, morbid obesity)? @ -None Was patient admitted / discharged? Hospital course, mention meds given and route, prescriptions, significant lab abnormalities, going to OR and other pertinent info. @ -Discharged. Patient has back pain consistent with mechanical back pain. No neurological deficit exam. Patient feeling significantly improved after treatment and requesting to go home. He is discharged with symptomatic management and instructions Undiagnosed new problem with uncertain prognosis? @ -No Drug Therapy requiring intensive monitoring for toxicity (Heparin, Nitro, Insulin, Cardizem)? @ -No Were any procedures done? @ -No] Diagnosis/symptom? @ -Mechanical back pain Acute, or Chronic, or Acute on Chronic? @ -Acute Uncomplicated (without systemic symptoms) or Complicated (systemic symptoms)? @ -Uncomplicated Side effects of treatment? @ -[No] Exacerbation, Progression, or Severe Exacerbation? @ -[No] Poses a threat to life or bodily function? How? (Chest pain, [place], [place], pneumonia, PE, COPD, DKA, ARF, appy, cholecystitis, CVA, Diverticulitis, Homicidal, Suicidal, threat to staff... and all critical care pts) @ -[No] Dr. Wilkinson is my attending Disposition Clinical Impression: Mechanical back pain Disposition: HOME SELF-CARE Instructions (If sedation given, give patient instructions): Acute Low Back Pain (ED) Additional Instructions: Take medication as directed. Do not drink alcohol or operate machinery while t aking Flexeril as it can cause drowsiness. Apply warm compress to injury. Light stretching is encouraged. Please follow-up with your primary care provider in 1-2 days. Return to the emergency department if you experience new, concerning, or worsening symptoms. Prescriptions: Cyclobenzaprine [Flexeril] 5 mg PO TID PRN #15 tablet PRN Reason: Muscle Spasm Lidocaine 5% Patch [Lidoderm 5% Patch] 1 patch TOPICAL DAILY PRN #7 patch PRN Reason: Pain Ibuprofen [Motrin] 600 mg PO Q8HR PRN #30 tab PRN Reason: Pain Is patient prescribed a controlled substance at d/c from ED?: No Referrals: Paul Clifton MD [Primary Care Provider] - 1-2 days
[2023-03-20 12:25] VITALS: BP 118/79; PULSE 69; TEMP 98
== END 2023-03-20 12:30 | disposition home or self-care (01) ==
LOC: EC 10:42
DX: M54.50 Low back pain, unspecified (principal); F31.9 Bipolar disorder, unspecified; F17.200 Nicotine dependence, unspecified, uncomplicated; F12.90 Cannabis use, unspecified, uncomplicated; F15.10 Other stimulant abuse, uncomplicated; Z79.899 Other long term (current) drug therapy; Z91.041 Radiographic dye allergy status; Z88.4 Allergy status to anesthetic agent
CPT/HCPCS: 99283; 96372; J1885

== ENCOUNTER 2023-12-03 04:59 | Emergency (ER) | payer MEDICARE, OTHER ==
[2023-12-03] MEDS: PROPARACAINE 0.5% OPHTH DROPS 15 ML BTL RIGHT EYE STA (06:26)
[2023-12-03] MEDS: FLUORESCEIN STRIPS 1 MG STRIP RIGHT EYE ONE (06:26)
--- NOTE | 2023-12-03 06:27 | ED ---
Eye Problem HPI - General Chief complaint: Eye Problems Stated complaint: Eye pain Time Seen by Provider: 12/03/23 06:27 Source: patient Mode of arrival: ambulatory Limitations: no limitations - History of Present Illness Initial comments: Patient is a 48-year-old male presented to the ER with chief complaint of eye pain. He states that this started last night and has persisted through the morning. He states his eye is red and burning. He also is reporting watery drainage. He does report he was working with metal the other day. Denies double/blurry vision. Tetanus status unknown. No other complaints at this time. - Related Data Home Medications Medication Instructions Recorded Confirmed Atorvastatin [Lipitor] 40 mg PO DAILY 03/20/23 03/20/23 FLUoxetine HCL [PROzac] 10 mg PO DAILY 03/20/23 03/20/23 FLUoxetine HCL [PROzac] 20 mg PO DAILY 03/20/23 03/20/23 Omeprazole 20 mg PO DAILY 03/20/23 03/20/23 Previous Rx's Medication Instructions Recorded OLANZapine [ZyPREXA] 10 mg PO HS 30 Days tab 04/16/21 Cyclobenzaprine [Flexeril] 5 mg PO TID PRN #15 tablet 03/20/23 Ibuprofen [Motrin] 600 mg PO Q8HR PRN #30 tab 03/20/23 Lidocaine 5% Patch [Lidoderm 5% 1 patch TOPICAL DAILY PRN #7 patch 03/20/23 Patch] Tobramycin 0.3% Ophth Soln [Tobrex 1 drop RIGHT EYE Q4H #5 ml 12/03/23 0.3% Ophth Soln] Allergies Allergy/AdvReac Type Severity Reaction Status Date / Time iodine Allergy Unknown Rash/Hives Verified 12/03/23 05:03 nicotine [From Nicoderm CQ] Allergy Rash/Hives Verified 12/03/23 05:03 Review of Systems ROS Statement: Those systems with pertinent positive or pertinent negative responses have been documented in the HPI. ROS Other: All systems not noted in ROS Statement are negative. Past Medical History Past Medical History: Osteoarthritis (OA) Additional Past Medical History / Comment(s): depresssion, sleep apnea History of Any Multi-Drug Resistant Organisms: None Reported Past Surgical History: Orthopedic Surgery Additional Past Surgical History / Comment(s): Right knee osteotomy Past Anesthesia/Blood Transfusion Reactions: No Reported Reaction Past Psychological History: Bipolar, Depression Smoking Status: Current every day smoker Past Alcohol Use History: None Reported Past Drug Use History: Marijuana, Methamphetamine - Past Family History Father Family Medical History: Unable to Obtain Mother Family Medical History: Unable to Obtain Additional Family Medical History / Comment(s): Patient states he does not know anything about his mother or father's health. He does have 1 daughter. He also has 1 brother and 2 sisters that are healthy. General Exam Limitations: no limitations General appearance: alert, in no apparent distress Head exam: Present: atraumatic, normocephalic, normal inspection Eye exam: Present: normal appearance, PERRL, EOMI, conjunctival injection (Right with clear watery drainage. ), other (Fluorescein stain negative for uptake. right IOP 11). Absent: scleral icterus, periorbital swelling Pupils: Present: normal accommodation Neck exam: Present: normal inspection. Absent: tenderness, meningismus, lymphadenopathy Respiratory exam: Present: normal lung sounds bilaterally. Absent: respiratory distress, wheezes, rales, rhonchi, stridor Cardiovascular Exam: Present: regular rate, normal rhythm, normal heart sounds. Absent: systolic murmur, diastolic murmur, rubs, gallop, clicks Neurological exam: Present: alert, oriented X3, CN II-XII intact Psychiatric exam: Present: normal affect, normal mood Skin exam: Present: warm, dry, intact, normal color. Absent: rash Course Vital Signs 12/03/23 12/03/23 05:00 07:02 Temperature 97.9 F 98.0 F Pulse Rate 71 62 Respiratory 18 20 Rate Blood Pressure 127/82 130/86 O2 Sat by Pulse 98 98 Oximetry Medical Decision Making - Medical Decision Making Was pt. sent in by a medical professional or institution (, PA, SERVICE SPRINKLER HELPER, urgent care, hospital, or [place] health [facility] facility...) When possible be specific @ -No Did you speak to anyone other than the patient for history (EMS, parent, family, police, friend...)? What history was obtained from this source @ -No Did you review nursing and triage notes (agree or disagree)? Why? @ -I reviewed and agree with nursing and triage notes Were old charts reviewed (outside hosp., previous admission, EMS record, old EKG, old radiological studies, urgent care reports/EKG's, [place] health [facility] facility records)? Report findings @ -No old charts were reviewed Differential Diagnosis (chest pain, altered mental status, abdominal pain women, abdominal pain men, vaginal bleeding, weakness, fever, dyspnea, syncope, headache, dizziness, GI bleed, back pain, seizure, CVA, palpatations, mental health, musculoskeletal)? @ -Corneal abrasion, ocular foreign body, hyphema, conjunctivitis, globe rupture, acute angle-closure glaucoma this list is not meant to be all-inclusive EKG interpreted by me (3pts min.). @ -None X-rays interpreted by me (1pt min.). @ -None done CT interpreted by me (1pt min.). @ -None done U/S interpreted by me (1pt. min.). @ -None done What testing was considered but not performed or refused? (CT, X-rays, U/S, labs)? Why? @ -None What meds were considered but not given or refused? Why? @ -None Did you discuss the management of the patient with other professionals (professionals i.e. , PA, SERVICE SPRINKLER HELPER, lab, RT, psych nurse, social worker aide, hand folder, teacher, chief medical officer, telehealth case manager)? Give summary @ -No Was smoking cessation discussed for >3mins.? @ -I discussed smoking cessation for greater than 3 minutes. The risk of smoking were discussed with the patient including but not limited to risks of c ancer, stroke, coronary artery disease and COPD. Also discussed with patient were multiple methods of quitting smoking. Lastly we discussed the financial cost of smoking. Was critical care preformed (if so, how long)? @ -No Were there social determinants of health that impacted care today? How? (Homelessness, low income, unemployed, alcoholism, drug addiction, transportation, low edu. Level, literacy, decrease access to med. care, correction, rehab)? @ -No Was there de-escalation of care discussed even if they declined (Discuss DNR or withdrawal of care, Hospice)? DNR status @ -No What co-morbidities impacted this encounter? (DM, HTN, Smoking, COPD, CAD, Cancer, CVA, ARF, Chemo, Hep., AIDS, mental health diagnosis, sleep apnea, morbid obesity)? @ -Smoker Was patient admitted / discharged? Hospital course, mention meds given and route, prescriptions, significant lab abnormalities, going to OR and other pertinent info. @ -Discharge. Patient is a 48-year-old male presented to the ER with chief complaint of right eye pain. History and physical exam completed. Vitals stable. Patient no signs acute distress and nontoxic-appearing. Right eye with conjunctival injection and clear drainage. Fluorescein stain negative for uptake. No acute foreign bodies under eyelids. Right intraocular pressure 11. Visual acuity 20/40 right and 20/30 left. Tetanus updated. Patient prescribed Tobrex eyedrops. Advise close follow-up with PCP. Strict return parameters discussed. Patient discharged stable condition with follow-up to PCP. Patient expressed understanding and agreement with care plan. Case discussed with ED attending, Dr. Wilkinson. Undiagnosed new problem with uncertain prognosis? @ -No Drug Therapy requiring intensive monitoring for toxicity (Heparin, Nitro, Insulin, Cardizem)? @ -No Were any procedures done? @ -No Diagnosis/symptom? @ -Conjunctivitis Acute, or Chronic, or Acute on Chronic? @ -Acute Uncomplicated (without systemic symptoms) or Complicated (systemic symptoms)? @ -Uncomplicated Side effects of treatment? @ -No Exacerbation, Progression, or Severe Exacerbation? @ -No Poses a threat to life or bodily function? How? (Chest pain, [place], [place], pneumonia, PE, COPD, DKA, ARF, appy, cholecystitis, CVA, Diverticulitis, Homicidal, Suicidal, threat to staff... and all critical care pts) @ -No Disposition Clinical Impression: Conjunctivitis Disposition: HOME SELF-CARE Condition: Stable Instructions (If sedation given, give patient instructions): Conjunctivitis (ED) Additional Instructions: Please complete full course of antibiotics. Follow-up with PCP. Return to the ER for any new or worsening concerns. Prescriptions: Tobramycin 0.3% Ophth Soln [Tobrex 0.3% Ophth Soln] 1 drop RIGHT EYE Q4H #5 ml Is patient prescribed a controlled substance at d/c from ED?: No Referrals: Paul Clifton [Primary Care Provider] - 1-2 days Time of Disposition: 06:56
[2023-12-03] MEDS: DIPH,PERTUS(ACELL)TETVAC-LF 0.5 ML VIAL IM ONE (06:52)
[2023-12-03 07:11] VITALS: BP 130/86; PULSE 62; RESP 20; TEMP 98
== END 2023-12-03 07:04 | disposition home or self-care (01) ==
LOC: EC 04:59
DX: H10.9 Unspecified conjunctivitis (principal); F17.210 Nicotine dependence, cigarettes, uncomplicated; Z23 Encounter for immunization; Z88.8 Allergy status to other drugs, medicaments and biological substances; Z91.041 Radiographic dye allergy status
CPT/HCPCS: 90471; 90715; 99283; 99406

== ENCOUNTER 2024-09-19 08:29 | Emergency (ER) | payer MEDICARE, OTHER ==
[2024-09-19 08:38] VITALS: TEMP 99.5
--- NOTE | 2024-09-19 08:56 | ED ---
General Adult HPI - General Chief complaint: Nausea/Vomiting/Diarrhea Stated complaint: Vomiting Time Seen by Provider: 09/19/24 08:40 Source: patient, EMS, RN notes reviewed, old records reviewed Mode of arrival: EMS Limitations: no limitations - History of Present Illness Initial comments: Patient is a 49-year-old male who presents emergency department complaining of nausea and vomiting. Patient has a sick contact, his who is admitted to the hospital for similar complaints. Denies any abdominal pain. Just endorses nausea vomiting and diarrhea. Denies any chest pain or shortness of breath. Endorses mild congestion. States he feels dehydrated and cannot hold anything down. Does have a history of polysubstance abuse. Denies any significant cough. Denies urinary complaints. Has had a colonoscopy in the past and states it was normal. Rosemarie for further evaluation at this time. Only past medical history is arthritis. - Related Data Home Medications Medication Instructions Recorded Confirmed Atorvastatin [Lipitor] 40 mg PO DAILY 03/20/23 03/20/23 FLUoxetine HCL [PROzac] 10 mg PO DAILY 03/20/23 03/20/23 FLUoxetine HCL [PROzac] 20 mg PO DAILY 03/20/23 03/20/23 Omeprazole 20 mg PO DAILY 03/20/23 03/20/23 Previous Rx's Medication Instructions Recorded OLANZapine [ZyPREXA] 10 mg PO HS 30 Days tab 04/16/21 Cyclobenzaprine [Flexeril] 5 mg PO TID PRN #15 tablet 03/20/23 Ibuprofen [Motrin] 600 mg PO Q8HR PRN #30 tab 03/20/23 Lidocaine 5% Patch [Lidoderm 5% 1 patch TOPICAL DAILY PRN #7 patch 03/20/23 Patch] Tobramycin 0.3% Ophth Soln [Tobrex 1 drop RIGHT EYE Q4H #5 ml 12/03/23 0.3% Ophth Soln] Amoxic-Pot Clav 875-125Mg 1 tab PO BID 7 Days #14 tab 09/19/24 [Augmentin 875-125] Allergies Allergy/AdvReac Type Severity Reaction Status Date / Time iodine Allergy Unknown Rash/Hives Verified 09/19/24 08:38 nicotine [From Nicoderm ] Allergy Rash/Hives Verified 09/19/24 08:38 Review of Systems ROS Statement: Those systems with pertinent positive or pertinent negative responses have been documented in the HPI. Review of Systems: CONST: Denies fever EYES: Denies blurry vision ENT: Denies nasal congestion C/V: Denies Chest pain RESP: Denies shortness of breath GI: Denies abdominal pain : Denies dysuria SKIN: Denies rash. MSK: Denies joint pain. NEURO: Denies headache ROS Other: All systems not noted in ROS Statement are negative. Past Medical History Past Medical History: Osteoarthritis (OA) Additional Past Medical History / Comment(s): depresssion, sleep apnea History of Any Multi-Drug Resistant Organisms: None Reported Past Surgical History: Orthopedic Surgery Additional Past Surgical History / Comment(s): Right knee osteotomy Past Anesthesia/Blood Transfusion Reactions: No Reported Reaction Past Psychological History: Bipolar, Depression Smoking Status: Current every day smoker Past Alcohol Use History: None Reported Past Drug Use History: Marijuana, Methamphetamine - Past Family History Father Family Medical History: Unable to Obtain Mother Family Medical History: Unable to Obtain Additional Family Medical History / Comment(s): Patient states he does not know anything about his mother or father's health. He does have 1 daughter. He also has 1 brother and 2 sisters that are healthy. General Exam - General Exam Comments Initial Comments: General: Appears in no acute distress. HEAD: Normal with no signs of head trauma. EYES: EOMI ENT: Hearing grossly intact, normal oropharynx. Dry mucous membranes. RESPIRATORY: Clear breath sounds bilaterally. No wheezes, rales, or rhonchi. C/V: Regular rate and rhythm. S1 and S2 auscultated, no edema, peripheral pulses 2+ and intact throughout ABD: Abdomen soft, nondistended. No significant tenderness to palpation. No guarding or rebound tenderness. No peritoneal signs. EXT: no obvious deformity SKIN: No rashes or lesions observed on exposed skin. NEURO: Alert and oriented x 4. Limitations: no limitations Course Vital Signs 09/19/24 09/19/24 08:33 10:51 Temperature 99.5 F Pulse Rate 95 89 Respiratory 19 16 Rate Blood Pressure 120/66 123/77 O2 Sat by Pulse 96 95 Oximetry Medical Decision Making - Medical Decision Making Was pt. sent in by a medical professional or institution (, PA, TON CYLINDER INSPECTOR, urgent care, hospital, or care home...) When possible be specific @ -No Did you speak to anyone other than the patient for history (EMS, parent, family, police, friend...)? What history was obtained from this source @ -No Did you review nursing and triage notes (agree or disagree)? Why? @ -I reviewed and agree with nursing and triage notes Were old charts reviewed (outside hosp., previous admission, EMS record, old EKG, old radiological studies, urgent care reports/EKG's, care home records)? Report findings @ -Compared today's EKG with EKG from April 13, 2020 with no obvious acute changes. Differential Diagnosis (chest pain, altered mental status, abdominal pain women, abdominal pain men, vaginal bleeding, weakness, fever, dyspnea, syncope, headache, dizziness, GI bleed, back pain, seizure, CVA, palpatations, mental health, musculoskeletal)? @ -COVID, flu, RSV, viral syndrome, dehydration, nausea and vomiting. This list is not all inclusive. EKG interpreted by me (3pts min.). @ -As above X-rays interpreted by me (1pt min.). @ -Chest x-ray reveals right lower lobe infiltrate. Concerning for pneumonia. CT interpreted by me (1pt min.). @ -None done U/S interpreted by me (1pt. min.). @ -Gallbladder ultrasound reveals no evidence of cholecystitis. Incidental isolated CBD mild dilation with no evidence to suggest obstruction of gallbladder or any other acute process. Likely chronic. What testing was considered but not performed or refused? (CT, X-rays, U/S, labs)? Why? @ -None What meds were considered but not given or refused? Why? @ -None Did you discuss the management of the patient with other professionals (professionals i.e. , PA, TON CYLINDER INSPECTOR, lab, RT, psych nurse, social worker school, sales enablement manager, teacher, armor officer, renal case manager)? Give summary @ -No Was smoking cessation discussed for >3mins.? @ -No Was critical care preformed (if so, how long)? @ -No Were there social determinants of health that impacted care today? How? (Home lessness, low income, unemployed, alcoholism, drug addiction, transportation, low edu. Level, literacy, decrease access to med. care, group home, rehab)? @ -No Was there de-escalation of care discussed even if they declined (Discuss DNR or withdrawal of care, Hospice)? DNR status @ -No What co-morbidities impacted this encounter? (DM, HTN, Smoking, COPD, CAD, Cancer, CVA, ARF, Chemo, Hep., AIDS, mental health diagnosis, sleep apnea, morbid obesity)? @ -None Was patient admitted / discharged? Hospital course, mention meds given and route, prescriptions, significant lab abnormalities, going to OR and other pertinent info. @ -Patient presents emergency department with nausea and vomiting with some diarrhea for multiple days. is admitted for dehydration it sounds like. Has similar complaints. Presents for further evaluation. Vital signs are within acceptable limits. Patient will be administered IV fluids, Zofran, Protonix. He has no significant abdominal pain. We will obtain gallbladder ultrasound as well as a screening chest x-ray as he is also having some upper respiratory symptoms. He was in agreement this plan. Patient's imaging remarkable for incidentally enlarged CBD with no evidence of obstructive process. This is supported by patient's labs being within normal li mits in terms of hepatobiliary labs. Chest x-ray shows right lower lobe pneumonia. Viral swab positive for influenza A. Patient is mildly hyponatremic at 130 and hypochloremic at 97 which is why he received IV fluids. Remainder the workup unremarkable. On reevaluation, patient is feeling improved and would like to go home. He is tolerating oral intake. I do believe that this is reasonable. Patient was in agreement this plan. Patient will be started on oral antibiotics, was given a dose of IV Rocephin prior to discharge, and was given an ODT Zofran starter pack. I will provide the patient with a prescription for Augmentin. I instructed the patient to follow up with their PCP in the next 1-3 days.. I explained that the patient should return to the emergency department if they experience any worsening symptoms. Strict return precautions were discussed with the patient. The patient expressed understanding of these instructions. I answered all questions that the patient had. The patient was discharged home in good condition with their prescriptions and follow up information. Undiagnosed new problem with uncertain prognosis? @ -No Drug Therapy requiring intensive monitoring for toxicity (Heparin, Nitro, Insulin, Cardizem)? @ -No Were any procedures done? @ -No Diagnosis/symptom? @ -Influenza A infection, right lower lobe pneumonia Acute, or Chronic, or Acute on Chronic? @ -Acute Uncomplicated (without systemic symptoms) or Complicated (systemic symptoms)? @ -Complicated Side effects of treatment? @ -None Exacerbation, Progression, or Severe Exacerbation] @ -No Poses a threat to life or bodily function? @ -Unlikely at this time - Lab Data Result diagrams: 09/19/24 08:56 09/19/24 08:57 Lab Results 09/19/24 09/19/24 09/19/24 Range/Units 08:56 08:57 08:57 WBC 7.6 (3.8-10.6) k/uL RBC 4.40 (4.30-5.90) m/uL Hgb 13.8 (13.0-17.5) gm/dL Hct 40.4 (39.0-53.0) % MCV 91.9 (80.0-100.0) fL MCH 31.3 (25.0-35.0) pg MCHC 34.1 (31.0-37.0) g/dL RDW 13.1 (11.5-15.5) % Plt Count 159 (150-450) k/uL MPV 7.5 Neutrophils % 90 % Lymphocytes % 6 % Monocytes % 3 % Eosinophils % 1 % Basophils % 0 % Neutrophils # 6.8 (1.3-7.7) k/uL Lymphocytes # 0.5 L (1.0-4.8) k/uL Monocytes # 0.2 (0-1.0) k/uL Eosinophils # 0.1 (0-0.7) k/uL Basophils # 0.0 (0-0.2) k/uL PT (10.0-12.5) sec INR (<1.2) APTT (22.0-30.0) sec Sodium 130 L (137-145) mmol/L Potassium 3.8 (3.5-5.1) mmol/L Chloride 97 L (98-107) mmol/L Carbon Dioxide 22 (22-30) mmol/L Anion Gap 11 mmol/L BUN 12 (9-20) mg/dL Creatinine 0.71 (0.66-1.25) mg/dL Est GFR (CKD-EPI)AfAm >90 (>60 ml/min/1.73 sqM) Est GFR (CKD-EPI)NonAf >90 (>60 ml/min/1.73 sqM) Glucose 138 H (74-99) mg/dL Plasma Lactic Acid Jose 0.9 (0.7-2.0) mmol/L Calcium 8.9 (8.4-10.2) mg/dL Total Bilirubin 0.3 (0.2-1.3) mg/dL AST 28 (17-59) U/L ALT 14 (4-49) U/L Alkaline Phosphatase 80 (38-126) U/L Total Protein 7.1 (6.3-8.2) g/dL Albumin 4.4 (3.5-5.0) g/dL Amylase 64 (30-110) U/L Lipase 51 (23-300) U/L Urine Color Urine Appearance (Clear) Urine pH (5.0-8.0) Ur Specific [place] (1.001-1.035) Urine Protein (Negative) Urine Glucose (UA) (Negative) Urine Ketones (Negative) Urine Blood (Negative) Urine Nitrite (Negative) Urine Bilirubin (Negative) Urine Urobilinogen (<2.0) mg/dL Ur Leukocyte Esterase (Negative) Influenza Type A (PCR) (Not Detectd) Influenza Type B (PCR) (Not Detectd) RSV (PCR) (Not Detectd) SARS-CoV-2 (PCR) (Not Detectd) 09/19/24 09/19/24 09/19/24 Range/Units 08:57 09:20 10:14 WBC (3.8-10.6) k/uL RBC (4.30-5.90) m/uL Hgb (13.0-17.5) gm/dL Hct (39.0-53.0) % MCV (80.0-100.0) fL MCH (25.0-35.0) pg MCHC (31.0-37.0) g/dL RDW (11.5-15.5) % Plt Count (150-450) k/uL MPV Neutrophils % % Lymphocytes % % Monocytes % % Eosinophils % % Basophils % % Neutrophils # (1.3-7.7) k/uL Lymphocytes # (1.0-4.8) k/uL Monocytes # (0-1.0) k/uL Eosinophils # (0-0.7) k/uL Basophils # (0-0.2) k/uL PT 11.3 (10.0-12.5) sec INR 1.0 (<1.2) APTT 24.4 (22.0-30.0) sec Sodium (137-145) mmol/L Potassium (3.5-5.1) mmol/L Chloride (98-107) mmol/L Carbon Dioxide (22-30) mmol/L Anion Gap mmol/L BUN (9-20) mg/dL Creatinine (0.66-1.25) mg/dL Est GFR (CKD-EPI)AfAm (>60 ml/min/1.73 sqM) Est GFR (CKD-EPI)NonAf (>60 ml/min/1.73 sqM) Glucose (74-99) mg/dL Plasma Lactic Acid Jose (0.7-2.0) mmol/L Calcium (8.4-10.2) mg/dL Total Bilirubin (0.2-1.3) mg/dL AST (17-59) U/L ALT (4-49) U/L Alkaline Phosphatase (38-126) U/L Total Protein (6.3-8.2) g/dL Albumin (3.5-5.0) g/dL Amylase (30-110) U/L Lipase (23-300) U/L Urine Color Light Yellow Urine Appearance Clear (Clear) Urine pH 6.5 (5.0-8.0) Ur Specific [place] 1.016 (1.001-1.035) Urine Protein Trace H (Negative) Urine Glucose (UA) Negative (Negative) Urine Ketones 1+ H (Negative) Urine Blood Negative (Negative) Urine Nitrite Negative (Negative) Urine Bilirubin Negative (Negative) Urine Urobilinogen <2.0 (<2.0) mg/dL Ur Leukocyte Esterase Negative (Negative) Influenza Type A (PCR) Detected A (Not Detectd) Influenza Type B (PCR) Not Detected (Not Detectd) RSV (PCR) Not Detected (Not Detectd) SARS-CoV-2 (PCR) Not Detected (Not Detectd) - EKG Data -: EKG Interpreted by Me EKG Comments: 12-lead Electrocardiogram Interpretation Note EKG was reviewed and interpreted by myself. 12-lead ECG performed at 0917 is interpreted by me as revealing normal sinus rhythm at a rate of 78 beats per mi nute. [place] is normal. LA interval is 119 ms, QRS duration is 98 ms, QTc is 368 ms.. There were no ST or T wave abnormalities to suggest myocardial ischemia or injury. R wave progression across the precordium was satisfactory. By my interpretation this EKG is non-diagnostic for acute ischemia. Compared with EKG from April 13, 2020 with no obvious acute changes. Disposition Clinical Impression: Influenza A, Pneumonia Disposition: HOME SELF-CARE Condition: Good Instructions (If sedation given, give patient instructions): Influenza (ED), Community Acquired Pneumonia (ED) Prescriptions: Amoxic-Pot Clav 875-125Mg [Augmentin 875-125] 1 tab PO BID 7 Days #14 tab Is patient prescribed a controlled substance at d/c from ED?: No Referrals: None,Stated [Primary Care Provider] - 1-2 days Time of Disposition: 10:43
[2024-09-19 09:02] LABS: Basophils % (A) 0 %; Eosinophils # (A) 0.1 k/uL (0-0.7); Eosinophils % (A) 1 %; HCT 40.4 % (39.0-53.0); HGB 13.8 gm/dL (13.0-17.5); Lymphocytes # (A) 0.5 k/uL (1.0-4.8); Lymphocytes % (A) 6 %; MCH 31.3 pg (25.0-35.0); MCHC 34.1 g/dL (31.0-37.0); MCV 91.9 fL (80.0-100.0); Mean Platelet Volume 7.5; Monocytes # (A) 0.2 k/uL (0-1.0); Monocytes % (A) 3 %; Neutrophils # (A) 6.8 k/uL (1.3-7.7); Neutrophils % (A) 90 %; Platelet Count 159 k/uL (150-450); RDW 13.1 % (11.5-15.5); WBC 7.6 k/uL (3.8-10.6)
[2024-09-19] MEDS: ONDANSETRON 4 MG/2 ML VIAL IVP STA (09:12)
[2024-09-19 09:13] LABS: ALT 14 U/L (4-49); AST 28 U/L (17-59); African American GFR (CKD) >90 (>60 ml/min/1.73 sqM); Albumin 4.4 g/dL (3.5-5.0); Alkaline Phosphatase 80 U/L (38-126); Amylase 64 U/L (30-110); Anion Gap 11 mmol/L; Blood Urea Nitrogen 12 mg/dL (9-20); Calcium 8.9 mg/dL (8.4-10.2); Carbon Dioxide 22 mmol/L (22-30); Chloride 97 mmol/L (98-107); Glucose 138 mg/dL (74-99); Lipase 51 U/L (23-300); Non-African American GFR(CKD) >90 (>60 ml/min/1.73 sqM); Potassium 3.8 mmol/L (3.5-5.1); Sodium 130 mmol/L (137-145); Total Bilirubin 0.3 mg/dL (0.2-1.3); Total Protein 7.1 g/dL (6.3-8.2)
[2024-09-19] MEDS: PANTOPRAZOLE 40 MG/10 ML VIAL IVP STA (09:13)
[2024-09-19] MEDS: SODIUM CHLORIDE 0.9% 2,000 ML IV STA (09:13)
[2024-09-19 09:39] LABS: Partial Thromboplastin Time 24.4 sec (22.0-30.0); Prothrombin Time 11.3 sec (10.0-12.5)
--- NOTE | 2024-09-19 09:55 | XR ---
EXAMINATION TYPE: XR chest 1V portable DATE OF EXAM: 09/19/2024 9:49 AM COMPARISON: 08/18/2014 CLINICAL INDICATION: Male, 49 years old with history of abdominal pain, vomiting TECHNIQUE: XR chest 1V portable view(s) obtained. FINDINGS: The heart size is normal. The pulmonary vasculature is normal. There may be some minimal increased lung markings at the right lower lobe. Correlate for atelectasis or pneumonia. Follow-up can be performed as clinically indicated. IMPRESSION: 1. Minimal right lower lobe infiltrate. Correlate for subsegmental atelectasis or early pneumonia. [facility], , 09/19/2024 9:53 AM
--- NOTE | 2024-09-19 10:30 | US ---
EXAMINATION TYPE: US gallbladder DATE OF EXAM: 09/19/2024 COMPARISON: NONE CLINICAL INDICATION: Male, 49 years old with history of n/v; N/V x 2 days TECHNIQUE: Grayscale and color Doppler imaging of the right upper quadrant was performed. FINDINGS: EXAM MEASUREMENTS: Liver Length: 17.9 cm Gallbladder Wall: 0.2 cm CBD: 0.9 cm. Normal less than 0.5 cm at this age Right Kidney: 11.4 x 5.4 x 5.3 cm Pancreas: wnl Liver: wnl Gallbladder: wnl Evidence for sonographic Scott's sign: no CBD: slightly dilated with no obvious signs of obstruction Right Kidney: wnl IMPRESSION: 1. Mild hepatomegaly. 2. Common bile duct is dilated. [facility], , 09/19/2024 10:28 AM
[2024-09-19 10:39] LABS: Appearance,Urine Clear (Clear); Bilirubin,Urine Negative (Negative); Blood,Urine Negative (Negative); Color,Urine Light Yellow; Glucose,Urine (UA) Negative (Negative); Ketones,Urine 1+ (Negative); Leukocyte Esterase,Urine Negative (Negative); Nitrite,Urine Negative (Negative); PH, Urine 6.5 (5.0-8.0); Protein,Urine Trace (Negative); Specific Gravity,Urine 1.016 (1.001-1.035); Urobilinogen,Urine <2.0 mg/dL (<2.0)
[2024-09-19] MEDS: ONDANSETRON 4 MG ODT STARTER PACK 2 TAB BTL PO STA (10:48)
[2024-09-19] MEDS: cefTRIAXone IN SWFI 1,000 MG/10 ML SYRINGE IVP STA (10:48)
[2024-09-19] MEDS: AMOXIC-POT CLAV 875-125MG 1 EACH TAB PO STA (10:48)
[2024-09-19 10:54] VITALS: BP 123/77; PULSE 89; RESP 16
== END 2024-09-19 10:54 | disposition home or self-care (01) ==
LOC: EC 08:29
DX: J10.00 Influenza due to other identified influenza virus with unspecified type of pneumonia (principal); B95.0 Streptococcus, group A, as the cause of diseases classified elsewhere; F17.200 Nicotine dependence, unspecified, uncomplicated; Z88.8 Allergy status to other drugs, medicaments and biological substances; Z91.041 Radiographic dye allergy status
CPT/HCPCS: 36415; 93005; 80053; 82150; 83605; 83690; 85025; 85610; 85730; 81003; 87636; 71045; 76705; 99285; 96374; 96375; 96361; J2405; J0696; S0119; J2470